=== PATIENT | male | born 1955 | race Caucasian/White ===

== ENCOUNTER 2017-07-23 09:26 | Inpatient (IN) | payer MEDICAID ==
[2017-07-23 10:18] LABS: ALT 26 U/L (7-52); Albumin 2.4 g/dL (3.2-5.2); Alkaline Phosphatase 139 U/L (34-104); Blood Urea Nitrogen 18 mg/dL (6-24); C Reactive Protein 59.94 mg/L (< 5.00); CO2 Carbon Dioxide 29 mmol/L (22-32); Calcium 8.8 mg/dL (8.6-10.3); Chloride 90 mmol/L (101-111); EGFR African American 78.4 (>60); Globulin 3.4 g/dL (2-4); Glucose 480 mg/dL (70-100); Sodium 124 mmol/L (133-145); Total Protein 5.8 g/dL (6.4-8.9); Uric Acid 5.6 mg/dL (4.4-7.6)
--- NOTE | 2017-07-23 10:42 | RAD ---
INDICATION: RIGHT lower extremity pain and edema. COMPARISON: March 25, 2010 CT. TECHNIQUE: Goldberg scale, color Doppler, and spectral analysis of the deep veins of the RIGHT lower extremity. Vessel compression, phasicity, and augmentation assessed. REPORT: The RIGHT common femoral, great saphenous, profunda femoral, femoral, popliteal, one of the paired peroneal and the paired posterior tibial veins are patent. The remaining peroneal calf vein demonstrates occlusive thrombosis. Top normal sized RIGHT inguinal lymph node noted. Patency of the LEFT common femoral vein documented. IMPRESSION: Occlusive thrombosis of one of the peroneal veins of the RIGHT calf.
[2017-07-23 10:56] LABS: Hematocrit 34 % (42-52); Hemoglobin 12.1 g/dl (14.0-18.0); Mean Corpuscular HGB Conc 35 g/dl (31-36); Mean Corpuscular Hemoglobin 39 pg (27-31); Mean Platelet Volume 8 um3 (7.4-10.4); Red Blood Count 3.12 10^6/ul (4.0-5.4); Red Cell Distribution Width 14 % (10.5-15); White Blood Count 5.7 10^3/ul (3.5-10.8)
[2017-07-23 10:57] LABS: Mean Corpuscular Volume 109 fL (80-94)
[2017-07-23] MEDS ORDERED: cefTRIAXone(*) 1 GM in NS 0.9% 50 ML* 50 ML IVPB ONE (11:03)
[2017-07-23] MEDS ORDERED: NS 0.9% 1000 ML* 1,000 ML IV ONE (11:24)
[2017-07-23] MEDS ORDERED: Dextrose 50% Syringe 50 ML* 25 GM/50 ML SYRINGE IV PUSH PRN (12:05)
[2017-07-23] MEDS ORDERED: Ondansetron INJ* 2 MG/ML VIAL IV PRN (12:05)
[2017-07-23] MEDS ORDERED: NS 0.9% 1000 ML* 1,000 ML IV SCH (12:15)
--- NOTE | 2017-07-23 12:59 | RAD ---
HISTORY: Swelling, pain, fall, right ankle pain COMPARISONS: None VIEWS: 2, Frontal and lateral views of the right ankle. Evaluation is somewhat limited by obliquity FINDINGS: BONE DENSITY: Normal. BONES: There is no displaced fracture. Calcaneal enthesophytes are noted JOINTS: There is osteoarthritis of the tibiotalar and fibulotalar articulations. There is osteoarthritis of the midfoot. ALIGNMENT: There is no dislocation. SOFT TISSUES: Unremarkable. OTHER FINDINGS: None. IMPRESSION: OSTEOARTHRITIS. NO ACUTE OSSEOUS INJURY. IF SYMPTOMS PERSIST, RECOMMEND REPEAT IMAGING.
[2017-07-23 13:00] LABS: Anion Gap 5 mmol/L (2-11)
--- NOTE | 2017-07-23 13:55 | HP ---
ISTORY AND PHYSICAL: * ADDENDUM: Rajat Munson is a 62-year-old male with nonalcoholic liver cirrhosis who presented with right leg edema and cellulitis to the ED. He was noted to have occlusive thrombus of one of the peroneal veins in the right calf. He is going to be admitted to the hospital, treated for cellulitis. We will also ask an oncology consult to recommend further treatment DVT that is symptomatic in this cirrhotic patient. For further details of the patient's presentation and plan, please see history and physical dictated by Kal Talavera NP on 07/22/17, with which I agree. [id number]/[facility] #: [id number] MTDJihan
--- NOTE | 2017-07-23 14:01 | RAD ---
Indication: Assess ascites. Comparison: March 26, [address] Technique: Limited four-quadrant abdominal ultrasound. REPORT AND IMPRESSION: Cirrhotic micronodular surface contour of the liver. Patent portal and hepatic veins with respective appropriate direction flow documented. Moderate volume of ascites greater on the RIGHT than the LEFT. Upper normal spleen size. Distended urinary bladder.
[2017-07-23] MEDS: Enoxaparin(*) 40 MG/0.4 ML SYR SUBCUT SCH (14:12)
[2017-07-23] MEDS: ceFAZolin 2 GM PREMIX (*) 2 GM/50 ML BAG IVPB SCH ×2 (14:12→21:01)
--- NOTE | 2017-07-23 14:45 | HP ---
ATTENDING ADDENDUM NOW INCLUDED ON THIS REPORT CC: Dr. Wallace; Dr. Fischer * HISTORY AND PHYSICAL: DATE OF ADMISSION: 07/23/17 PRIMARY CARE PROVIDER: Dr. Wallace. CONSULTING FACILITY TECHNICIAN: Dr. Fischer. ATTENDING PHYSICIAN WHILE IN THE HOSPITAL: Dr. Carmen Villaseñor * (report dictated by Kal Talavera NP). CHIEF COMPLAINT: 1. Weakness. 2. Right leg pain. 3. Fall. HISTORY OF PRESENT ILLNESS: Mr. Munson is a 62-year-old male patient who carries a history of cryptogenic cirrhosis, history of TIA, and a history of epilepsy as a child. He comes in today. He says over the last week, he has had a progressive decline in his functional status. He has been more weak. He has been having pain in his right leg and now in his left leg and he has just been not doing well. He got up today and he has had a mechanical fall. He got to the edge of the bed to use the urinal and he fell down. His sister who was there in [facility], aided him and they called 911 as because she was concerned over the last week he had been declining. They noticed when he fell that he did have a significant amount of redness just above his right ankle and she was concerned there might be an infection there. The patient denied having any abdominal pain. No cough. He denied any dysuria or any frequency. He denied having any seizures. Sister does state that he has been voiding a lot, and he has been pretty thirsty and drinking. He feels parched despite drinking fluids. He says that he follows with Dr. Wallace on a quarterly basis and he has been keeping his appointments. He does not have a GI specialist, but he does note that he has cryptic cirrhosis and he opted not to receive liver transplant. He denies having any fevers. He did admit to having some chills and feeling warm. No chest pain. No shortness of breath. No abdominal discomfort. He had one episode of diarrhea and one episode of urinary incontinence, but no dysuria. There has been frequency. There was concern today for possible cellulitis and he is also noted to be hyponatremic. We are asked to evaluate for admission. PAST MEDICAL HISTORY: Significant for: 1. Cryptogenic cirrhosis. 2. TIA. 3. Seizures as a child. PAST SURGICAL HISTORY: He has had a liver biopsy and appendectomy. HOME MEDICATIONS: Include: 1. Aldactone 50 mg p.o. daily. 2. Propranolol 40 mg p.o. b.i.d. 3. Multivitamin 1 tablet p.o. daily. 4. Lasix 20 mg daily. ALLERGIES TO MEDICATIONS: Include no known drug allergies. FAMILY HISTORY: Mother had a history of TB. Father had a history of NE and CAD. SOCIAL HISTORY: He does not smoke. He does not drink. Last time he had a drink when he was 25. Surrogate decision maker is his sister Suad. REVIEW OF SYSTEMS: There is no significant weight change. Denied having any double visions. There is no ear discharge. Denied having any rhinorrhea. No sore throat. No thyroid enlargement. Denied having any chest pain. There was no orthopnea. There was no nocturnal dyspnea. There was no abdominal pain. No nausea. No vomiting. No dysuria. There was frequency. There is no seizure. No loss of consciousness. No pruritus and no skin ulcerations. Review of 14 systems completed, all others negative. PHYSICAL EXAMINATION GENERAL: At this time, Mr. Munson is a 62-year-old male patient. He is chronically ill appearing. He is sitting in the ED stretcher. He does not appear to be in any acute distress. VITAL SIGNS: Blood pressure 98/53, pulse 56, respirations 18, O2 sat 100%, temperature 97.6. HEENT: Head: Atraumatic. Eyes: EOMs intact. Sclerae, he did have some icterus noted. Pupils reactive to light. Throat: Oral mucosa appears to be moist. No oropharyngeal erythema. NECK: Supple. LUNGS: Clear to auscultation bilaterally. No wheezes, rales, or rhonchi. HEART: Sounds S1, S2. Regular rate and rhythm. No murmurs, rubs, or gallops. ABDOMEN: Soft, flat, nontender. Bowel sounds present. EXTREMITIES: He does have edema noted to the right lower extremity, right ankle particularly and the right foot. He has some erythema noted just above the right ankle and it is hot to touch. He is moving his extremities, 5/5 strength. NEUROLOGIC: He is awake, alert, and oriented x3. Tongue is midline. Manager Front are equal. No gross focal deficits. SKIN: Intact. He does have what appears to be an abrasion noted to the right great toe. DIAGNOSTIC STUDIES/LAB DATA: WBC 5.7, RBC of 3.12, hemoglobin of 12.1, hematocrit of 34, platelet count of 110. Sodium is 124, his potassium is pending, his chloride is 90, bicarb 29, BUN 18. Creatinine 1.20, glucose of 480 , lactate 3.1, calcium of 8.8. Uric acid 5.6. Total bili 4.9, AST pending, ALT 29, alk phos 139. CRP of 59. Albumin of 2.4. He had a venous Doppler study showed occlusive thrombus of one of the peroneal veins of the right calf. Old medical records were reviewed. ASSESSMENT AND PLAN: Mr. Munson is a 62-year-old male patient with cryptogenic cirrhosis, coming into the ED today, with complaints of fall and weakness and on evaluation found to have cellulitis of the right lower extremity, peroneal vein thrombus. In addition to this, also found to be newly onset diabetic. He will be admitted under inpatient status for: 1. Cryptogenic cirrhosis. I am unsure of his MELD score at this point. I do not have his INR to help me calculate this. I would like to calculate his MELD. The patient is not interested in a liver transplant. If the MELD is high , we may need to consider possible palliative care consult as his liver disease does appear to be pretty advanced. I would like to get ammonia level on the patient and we will continue to follow. 2. Peroneal vein thrombosis. I did touch base with Dr. Fischer. He does have a cellulitis and the possible thrombophlebitis on the same side as the blood clot. At this point, Dr. Fischer's recommendation to provide Lovenox subcu daily for [address] Fischer will be evaluating the patient. Again, the risks and benefits on this, the patient does have thrombophlebitis and cellulitis in the same leg and certainly there is a concern and the low likelihood that the clot will embolize. However, I do think that it is appropriate because of that underlying infection and possible thrombophlebitis, to go ahead and put him on low dose Lovenox to prevent any further clotting. 3. New onset diabetes: I will put him on Lantus 10 units and I am also going to put him on a sliding scale. We will get an A1c and I placed a consult to [facility]. 4. Cellulitis and thrombophlebitis: We will go ahead and put him on cefazolin. We will get blood cultures. In addition to this, I will repeat the lactic acid as that may be elevated due to infection or it could certainly just be elevated due to the fact that he has significant liver disease and he cannot clear it. We will monitor that. 5. Hyponatremia: This is factitious. The sodium actually corrects out to about 130 with that sugar of 480. So we will follow this. I am going to repeat the BMP later today and I am sending off serum osmo, urine osmo, and urine sodium. He does appear to be dry and I am also going to hold his spironolactone and Lasix. We will continue the propranolol. 6. DVT prophylaxis. He will be on Lovenox 40 a day. 7. Code status. He is a full code. 8. Fluids, electrolytes, and nutrition. He can have a low protein diet. TIME SPENT: On admission 90 minutes, greater than half the time spent face-to- face with the patient, obtaining my history and physical, other half of the time was spent going over the plan of care with the patient and implementing plan of care. I did discuss the plan of care with my attending, Dr. Villaseñor; she is in agreement. KAL TALAVERA NP ADDENDUM: Rajat Munson is a 62-year-old male with nonalcoholic liver cirrhosis who presented with right leg edema and cellulitis to the ED. He was noted to have occlusive thrombus of one of the peroneal veins in the right calf. He is going to be admitted to the hospital, treated for cellulitis. We will also ask an oncology consult to recommend further treatment for peroneal vein thrombosis that is symptomatic in this cirrhotic patient. For further details of the patient's presentation and plan, please see history and physical dictated by Kal Talavera NP on 07/22/17, with which I agree. CARMEN VILLASEÑOR MD [id number]/[facility] #: [id number] [id number]/[facility] #: [id number] LALI
[2017-07-23 15:43] LABS: Urine Bilirubin Negative (Negative); Urine Glucose 3+(>=500 mg/dL) (Negative); Urine Nitrite Negative (Negative)
[2017-07-23 17:34] LABS: BUN/Creatinine Ratio 15.5 (8-20); Calcium 8.2 mg/dL (8.6-10.3); EGFR African American 81.5 (>60); EGFR Non-African American 63.4 (>60); Potassium 4.3 mmol/L (3.5-5.0)
[2017-07-23] MEDS ORDERED: Insulin LISPRO* 1 UNITS UNIT SUBCUT ONE (17:46)
[2017-07-23] MEDS: Insulin LISPRO* 1 UNITS UNIT SUBCUT SCH (18:03)
[2017-07-23] MEDS ORDERED: Insulin GLARGINE(*) 1 UNITS UNIT SUBCUT SCH (21:00)
[2017-07-23] MEDS: Propranolol TAB* 40 MG PO SCH (21:03)
[2017-07-24] MEDS: ceFAZolin 2 GM PREMIX (*) 2 GM/50 ML BAG IVPB SCH ×2 (05:08→13:41)
[2017-07-24 07:40] LABS: Hematocrit 31 % (42-52); Hemoglobin 10.9 g/dl (14.0-18.0); Mean Corpuscular HGB Conc 36 g/dl (31-36); Mean Corpuscular Hemoglobin 39 pg (27-31); Mean Platelet Volume 7 um3 (7.4-10.4); Red Cell Distribution Width 14 % (10.5-15); White Blood Count 7.4 10^3/ul (3.5-10.8)
[2017-07-24 07:46] LABS: Add Diff/Slide Review? Slide Review Added; Comments Flag Yes; Mean Corpuscular Volume 109 fL (80-94)
[2017-07-24 08:26] LABS: BUN/Creatinine Ratio 16.5 (8-20); Calcium 8.1 mg/dL (8.6-10.3); EGFR African American 87.6 (>60); EGFR Non-African American 68.1 (>60); Potassium 4.4 mmol/L (3.5-5.0)
[2017-07-24] MEDS: Propranolol TAB* 40 MG PO SCH ×2 (09:12→23:47)
[2017-07-24] MEDS: Insulin LISPRO* 1 UNITS UNIT SUBCUT SCH ×3 (09:12→18:31)
--- NOTE | 2017-07-24 10:30 | PN ---
Subjective Date of Service: 07/24/17 Interval History: Mr. Munson states that he feels relatively well today. He reports continued pain with palpation to bilateral calves of unclear duration though seems to be ongoing for about a week. He denies any history of diabetes although he describes this diagnosis as "in the air." He denies chest pain, SOB, nausea, or abdominal pain. Objective Active Medications: Dextrose (D50w Syringe 50 Ml*) 12.5 gm IV PUSH .FOR FS < 60 - SS PRN Enoxaparin Sodium (Lovenox(*)) 40 mg SUBCUT Q24H MAKENNA Cefazolin Sodium/Dextrose (Kefzol 2 Gm Premix(*)) 2 gm in 50 mls @ 100 mls/hr IVPB Q8H MAKENNA Sodium Chloride (Ns 0.9% 1000 Ml*) 1,000 mls @ 100 mls/hr IV PER RATE MAKENNA Insulin Glargine (Lantus(*)) 10 units SUBCUT Q24H MAKENNA Insulin Human Lispro (Humalog*) 0 units SUBCUT AC MAKENNA Ondansetron HCl (Zofran Inj*) 4 mg IV Q6H PRN Propranolol HCl (Inderal Tab*) 40 mg PO BID [facility] Vital Signs: Temp Pulse Resp BP Pulse Ox 98.3 F 66 18 90/50 97 07/24/17 07:18 07/24/17 07:18 07/24/17 07:18 07/24/17 07:18 07/24/17 07:18 Oxygen Devices in Use Now: None Appearance: Male lying in bed in NAD Eyes: No Scleral Icterus Ears/Nose/Mouth/Throat: Mucous Membranes Moist Neck: Trachea Midline Respiratory: Symmetrical Chest Expansion and Respiratory Effort, Clear to Auscultation Cardiovascular: NL Sounds; No Murmurs; No JVD, - - +1 edema to R LE Abdominal: NL Sounds; No Tenderness; No Distention, - - Hepatomegaly Lymphatic: No Cervical Adenopathy Extremities: - - +1 R LE Skin: - - Erythema to right medial ankle Neurological: Alert and Oriented x 3, NL Muscle Strength and Tone Nutrition: Taking PO's Result Diagrams: 07/24/17 07:33 07/24/17 07:33 Assess/Plan/Problems-Billing Assessment: Mr. 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 - Patient Problems (1) Cellulitis Comment: - Switch to keflex as patient tolerating oral intake. (2) Diabetes Comment: - New diagnosis with HgbA1c is 10.8. - Increase lantus for persistent hyperglycemia, will likely need insulin therapy rather than oral meds given hepatic dysfunction. - [facility] consult outpatient. (3) Hyponatremia Comment: - Na corrects to 130 with hyperglycemia taken in to account. (4) DVT (deep venous thrombosis) Comment: - Distal DVT with concern for associated thrombophlebitis. - Case reviewed with Dr. Fischer with plan for Lovenox 40mg sq daily. - Patient also has left sided calf pain, plan for doppler of L LE as well. (5) Cryptogenic cirrhosis Comment: - Patient has opted to forego any liver transplant. - INR 1.33, Platelets 96. (6) Full code status Status and Disposition: Inpatient. Anticipate discharge to home when medically stable.
[2017-07-24] MEDS: Enoxaparin(*) 40 MG/0.4 ML SYR SUBCUT SCH (13:41)
--- NOTE | 2017-07-24 16:31 | RAD ---
INDICATION: LEFT lower extremity pain and edema. COMPARISON: RIGHT lower extremity venous Doppler July 23, 2017. TECHNIQUE: Goldberg scale, color Doppler, and spectral analysis of the deep veins of the LEFT lower extremity. Vessel compression, phasicity, and augmentation assessed. REPORT: The LEFT common femoral, great saphenous, profunda femoral, femoral, popliteal, and posterior tibial veins are patent. The LEFT peroneal veins could not be visualized which may be technical due to limited acoustic window likely secondary to innumerable calcifications within the soft tissue plane based on correlation with July 23, 2017 contralateral ankle radiographs. Patency of the RIGHT common femoral vein documented. IMPRESSION: 1. No evidence for LEFT above knee DVT. 2. Patency of the LEFT calf posterior tibial veins documented. 3. The LEFT peroneal veins could not be visualized due to shadowing from soft tissue calcifications limiting acoustic window.
[2017-07-24] MEDS ORDERED: Insulin LISPRO* 1 UNITS UNIT SUBCUT SCH (18:07)
[2017-07-24] MEDS ORDERED: Insulin LISPRO* 1 UNITS UNIT SUBCUT ONE ×3 (18:14→23:57)
[2017-07-24] MEDS ORDERED: Insulin GLARGINE(*) 1 UNITS UNIT SUBCUT SCH (21:00)
[2017-07-24] MEDS: Cephalexin CAP* 500 MG PO SCH (22:40)
[2017-07-24] MEDS ORDERED: Propranolol TAB* 20 MG PO ONE (23:45)
[2017-07-25] MEDS ORDERED: Insulin LISPRO* 1 UNITS UNIT SUBCUT SCH (07:34)
[2017-07-25] MEDS ORDERED: Propranolol TAB* 20 MG PO SCH (08:37)
--- NOTE | 2017-07-25 08:38 | PN ---
Subjective Date of Service: 07/25/17 Interval History: Mr. Munson has no new acute complaints today and thinks that he is feeling better overall. He denies chest pain, SOB, nausea, or abdominal pain. He reports less pain in his right ankle. 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 Objective Active Medications: Cephalexin HCl (Keflex Cap*) 500 mg PO BID [facility]KENNA Dextrose (D50w Syringe 50 Ml*) 12.5 gm IV PUSH .FOR FS < 60 - SS PRN Enoxaparin Sodium (Lovenox(*)) 40 mg SUBCUT Q24H MAKENNA Sodium Chloride (Ns 0.9% 1000 Ml*) 1,000 mls @ 100 mls/hr IV PER RATE MAKENNA Insulin Glargine (Lantus(*)) 30 units SUBCUT 2100 MAKENNA Insulin Human Lispro (Humalog*) 0 units SUBCUT AC MAKENNA Ondansetron HCl (Zofran Inj*) 4 mg IV Q6H PRN Propranolol HCl (Inderal Tab*) 40 mg PO BID [facility] Vital Signs - 8 hr Vital Signs: Temp Pulse Resp BP Pulse Ox 98.4 F 70 18 87/43 98 07/25/17 07:35 07/25/17 07:35 07/25/17 07:47 07/25/17 07:35 07/25/17 07:35 Oxygen Devices in Use Now: None Appearance: Male lying in bed in NAD Eyes: No Scleral Icterus Ears/Nose/Mouth/Throat: Mucous Membranes Moist Neck: Trachea Midline Respiratory: Symmetrical Chest Expansion and Respiratory Effort, Clear to Auscultation Cardiovascular: NL Sounds; No Murmurs; No JVD, - - +1 edema bilateral, R > L Abdominal: - - Distended, soft, nontender Skin: No Rash or Ulcers Neurological: Alert and Oriented x 3, NL Muscle Strength and Tone Nutrition: Taking PO's Result Diagrams: 07/24/17 07:33 07/24/17 07:33 Microbiology and Other Data: . Assess/Plan/Problems-Billing Assessment: Mr. 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 - Patient Problems (1) Cellulitis Comment: - Switch to keflex as patient tolerating oral intake. - Elevate LE's (2) Hypotension Comment: - SBP 80-100 - Suspect this is a chronic issue with portal hypertension and cirrhosis. - Hold propranolol. (3) DVT (deep venous thrombosis) Comment: - Distal DVT with concern for associated thrombophlebitis. - Case reviewed with Dr. Fischer with plan for Lovenox 40mg sq daily. - Patient also has left sided calf pain, but doppler negative. (4) Diabetes Comment: - New diagnosis with HgbA1c of 10.8, patient notes that this has been discussed with him but he had not wanted to start treatment. - Increase lantus for persistent hyperglycemia, will need insulin therapy rather than oral meds given hepatic dysfunction. - [facility] consult requested, will see on Wednesday after 3:30pm if patient still in the hospital. (5) Hyponatremia Comment: - Na corrects to 130 with hyperglycemia taken in to account. (6) Cryptogenic cirrhosis Comment: - Patient has opted to forego any liver transplant. - INR 1.33, Platelets 96. (7) Full code status Status and Disposition: Inpatient. Patient with limited mobility, physical therapy consult pending. Anticipate patient will need short term rehab vs SNF.
[2017-07-25] MEDS: Cephalexin CAP* 500 MG PO SCH ×2 (10:00→21:31)
--- NOTE | 2017-07-25 12:08 | ED ---
Nicolas Real Angela, scribed for Dhaval Hill MD on 07/23/17 at 0935 . Lower Extremity - HPI Summary HPI Summary: This pt is a 62 y/o male presenting to [facility] via EMS from home c/o weakness and right ankle redness for approximately 1 week. Pt states that he also noticed some swelling on his right ankle. Per EMS, pt was trying to stand up, became weak, and subsequently slid to the floor. EMS reports the pt was found seated on the floor of the bedroom. No LOC or headstrike. Pt denies chest pain, SOB. He also states having uncontrolled urination. 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 Pt is currently on Aldactone, propranolol, Lasix. - History of Current Complaint Stated Complaint: WEAKNESS, LEG PAIN Time Seen by Provider: 07/23/17 09:28 Hx Obtained From: Patient Mechanism Of Injury: Other - none Onset of Pain: Days Onset/Duration: Days Severity Currently: Severe Timing: Lasting Days Location: Is Discrete @ - right ankle Associated Signs And Symptoms: Positive: Swelling, Redness Able to Bear Weight: Yes - Allergies/Home Medications Allergies/Adverse Reactions: Allergies Allergy/AdvReac Type Severity Reaction Status Date / Time No Known Allergies Allergy Verified 07/23/17 09:38 Home Medications: Home Medications Furosemide TAB* [Lasix TAB*] 20 mg PO DAILY 07/23/17 [History Confirmed 07/23/17 ] Multivitamins/Minerals TAB* [Theragran/minerals TAB*] 1 tab PO DAILY 07/23/17 [ History Confirmed 07/23/17] Propranolol TAB* [Inderal TAB*] 40 mg PO BID 07/23/17 [History Confirmed ] Spironolactone TAB* [Aldactone TAB*] 50 mg PO DAILY 07/23/17 [History Confirmed 07/23/17] PMH/Surg Hx/FS Hx/Imm Hx Endocrine/Hematology History: Denies: Hx Diabetes Cardiovascular History: Denies: Hx Hypertension GI History: Reports: 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 - Family History Known Family History: Positive: Cardiac Disease - Father: CAD and [place], Other - Mother: TB - Social History Alcohol Use: None Substance Use Type: Reports: None Smoking Status (MU): Never Smoked Tobacco Review of Systems Negative: Fever, Chills Negative: Chest Pain Negative: Shortness Of Breath Musculoskeletal: Other - Right ankle erythematous Positive: Edema - right ankle Skin: Negative Neurological: Negative All Other Systems Reviewed And Are Negative: Yes Physical Exam - Summary Physical Exam Summary: VITAL SIGNS: Reviewed. GENERAL: Patient is a pale and weak male who is lying comfortable in the stretcher. Patient is not in any acute respiratory distress. HEAD AND FACE: No signs of trauma. No ecchymosis, hematomas or skull depressions. No sinus tenderness. EYES: PERRLA, EOMI x 2, No injected conjunctiva, no nystagmus. EARS: Hearing grossly intact. Ear canals and tympanic membranes are within normal limits. MOUTH: Oropharynx within normal limits. NECK: Supple, trachea is midline, no adenopathy, no JVD, no carotid bruit, no c- spine tenderness, neck with full ROM. CHEST: Symmetric, no tenderness at palpation LUNGS: Clear to auscultation bilaterally. No wheezing or crackles. CVS: Regular rate and rhythm, S1 and S2 present, no murmurs or gallops appreciated. ABDOMEN: Soft, non-tender. No signs of distention. No rebound no guarding, and no masses palpated. Bowel sounds are normal. EXTREMITIES: FROM in all major joints, no cyanosis or clubbing. Right lower extremity erythema, swollen, and tenderness. NEURO: Alert and oriented x 3. No acute neurological deficits. Speech is normal and follows commands. SKIN: Warm. Dry skin. Triage Information Reviewed: Yes Vital Signs On Initial Exam: Initial Vitals Temp Pulse Resp BP Pulse Ox 97.6 F 95 16 91/42 92 07/23/17 09:37 07/23/17 09:37 07/23/17 09:37 07/23/17 09:37 07/23/17 09:37 Vital Signs Reviewed: Yes Diagnostics - Vital Signs Vital Signs Temp Pulse Resp BP Pulse Ox 07/23/17 11:00 65 20 107/55 100 07/23/17 10:30 66 15 101/54 100 07/23/17 10:00 64 10 98/56 98 07/23/17 09:44 64 100 07/23/17 09:43 100/49 07/23/17 09:37 97.6 F 95 16 91/42 92 - Laboratory Lab Results: Lab Results 07/23/17 07/23/17 07/23/17 Range/Units 09:50 09:50 09:50 WBC 5.7 (3.5-10.8) 10^3/ul RBC 3.12 L (4.0-5.4) 10^6/ul Hgb 12.1 L (14.0-18.0) g/dl Hct 34 L (42-52) % MCV 109 H (80-94) fL MCH 39 H (27-31) pg MCHC 35 (31-36) g/dl RDW 14 (10.5-15) % Plt Count 110 L (150-450) 10^3/ul MPV 8 (7.4-10.4) um3 Neut % (Auto) 72.7 (38-83) % Lymph % (Auto) 15.4 L (25-47) % Gilliam % (Auto) 6.9 (1-9) % Eos % (Auto) 3.8 (0-6) % Baso % (Auto) 1.2 (0-2) % Absolute Neuts (auto) 4.2 (1.5-7.7) 10^3/ul Absolute Lymphs (auto) 0.9 L (1.0-4.8) 10^3/ul Absolute Monos (auto) 0.4 (0-0.8) 10^3/ul Absolute Eos (auto) 0.2 (0-0.6) 10^3/ul Absolute Basos (auto) 0.1 (0-0.2) 10^3/ul Absolute Nucleated RBC 0.01 10^3/ul Nucleated RBC % 0.2 INR (Anticoag Therapy) (0.77-1.02) Sodium 124 L (133-145) mmol/L Potassium TNP Chloride 90 L (101-111) mmol/L Carbon Dioxide 29 (22-32) mmol/L Anion Gap 5 (2-11) mmol/L BUN 18 (6-24) mg/dL Creatinine 1.20 H (0.67-1.17) mg/dL Est GFR ( Amer) 78.4 (>60) Est GFR (Non-Af Amer) 61.0 (>60) BUN/Creatinine Ratio 15.0 (8-20) Glucose 480 H (70-100) mg/dL Hemoglobin A1c (4.0-5.6) % Lactic Acid 3.1 H* (0.5-2.0) mmol/L Uric Acid 5.6 (4.4-7.6) mg/dL Calcium 8.8 (8.6-10.3) mg/dL Total Bilirubin 4.90 H (0.2-1.0) mg/dL AST TNP ALT 26 (7-52) U/L Alkaline Phosphatase 139 H (34-104) U/L C-Reactive Protein 59.94 H (< 5.00) mg/L Total Protein 5.8 L (6.4-8.9) g/dL Albumin 2.4 L (3.2-5.2) g/dL Globulin 3.4 (2-4) g/dL Albumin/Globulin Ratio 0.7 L (1-3) 07/23/17 07/23/17 Range/Units 09:50 09:50 WBC (3.5-10.8) 10^3/ul RBC (4.0-5.4) 10^6/ul Hgb (14.0-18.0) g/dl Hct (42-52) % MCV (80-94) fL MCH (27-31) pg MCHC (31-36) g/dl RDW (10.5-15) % Plt Count (150-450) 10^3/ul MPV (7.4-10.4) um3 Neut % (Auto) (38-83) % Lymph % (Auto) (25-47) % Gilliam % (Auto) (1-9) % Eos % (Auto) (0-6) % Baso % (Auto) (0-2) % Absolute Neuts (auto) (1.5-7.7) 10^3/ul Absolute Lymphs (auto) (1.0-4.8) 10^3/ul Absolute Monos (auto) (0-0.8) 10^3/ul Absolute Eos (auto) (0-0.6) 10^3/ul Absolute Basos (auto) (0-0.2) 10^3/ul Absolute Nucleated RBC 10^3/ul Nucleated RBC % INR (Anticoag Therapy) 1.26 H (0.77-1.02) Sodium (133-145) mmol/L Potassium Chloride (101-111) mmol/L Carbon Dioxide (22-32) mmol/L Anion Gap (2-11) mmol/L BUN (6-24) mg/dL Creatinine (0.67-1.17) mg/dL Est GFR ( Amer) (>60) Est GFR (Non-Af Amer) (>60) BUN/Creatinine Ratio (8-20) Glucose (70-100) mg/dL Hemoglobin A1c 10.8 H (4.0-5.6) % Lactic Acid (0.5-2.0) mmol/L Uric Acid (4.4-7.6) mg/dL Calcium (8.6-10.3) mg/dL Total Bilirubin (0.2-1.0) mg/dL AST ALT (7-52) U/L Alkaline Phosphatase (34-104) U/L C-Reactive Protein (< 5.00) mg/L Total Protein (6.4-8.9) g/dL Albumin (3.2-5.2) g/dL Globulin (2-4) g/dL Albumin/Globulin Ratio (1-3) Result Diagrams: 07/24/17 07:33 07/24/17 07:33 Lab Statement: Any lab studies that have been ordered have been reviewed, and results considered in the medical decision making process. - Additional Comments Diagnostic Additional Comments: Venous Doppler Study, RIGHT, as read by radiologist: IMPRESSION: Occlusive thrombosis of one of the peroneal veins of the RIGHT calf. ED physician has reviewed this radiology report and agrees. Lower Extremity Course/Dx - Course Assessment/Plan: This pt is a 62 y/o male presenting to [facility] via EMS from home c/o weakness and right ankle redness for approximately 1 week. Pt states that he also noticed some swelling on his right ankle. Per EMS, pt was trying to stand up, became weak, and subsequently slid to the floor. EMS reports the pt was found seated on the floor of the bedroom. No LOC or headstrike. Pt denies chest pain, SOB. He also states having uncontrolled urination. 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 Pt is currently on Aldactone, propranolol, Lasix. Test results shoe slight anemia, INR is 1.26 , sodium is 124, creatinine is 1.2 glucose is 480 with a normal anion gap and normal carbon dioxide, therefore I have no suspicion for DKA. CRP is 59.9. Venous Doppler Study of the RLE shows occlusive thrombosis of one of the peroneal veins of the RIGHT calf. In the ED course, the pt was started on IV fluids for hypotension and was also started on insulin for hyperglycemia. He was also given ceftriaxone. At this point I discussed the case with Dr. Villaseñor, who accepted the pt for admission. Pt is hemodynamically stable, alert and oriented x3. - Diagnoses Differential Diagnosis/HQI/PQRI: Positive: Bursitis, Cellulitis, DVT, Gout, Sprain, Strain, Tendonitis Provider Diagnoses: Cellulitis of right lower extremity, Uncontrolled diabetes mellitus - Physician Notifications Discussed Care Of Patient With: Carmen Villaseñor Time Discussed With Above Provider: 11:06 Instructed by Provider To: Other - I discussed the pt's case with Dr. Villaseñor, who agreed to admit the pt. Discharge - Discharge Plan Condition: Stable Disposition: ADMITTED TO [facility] documentation as recorded by the Nicolas villatoro Angela accurately reflects the service I personally performed and the decisions made by , Dhaval Hill MD.
[2017-07-25] MEDS: Insulin LISPRO* 1 UNITS UNIT SUBCUT SCH ×3 (12:47→21:31)
[2017-07-25] MEDS: Enoxaparin(*) 40 MG/0.4 ML SYR SUBCUT SCH (14:44)
[2017-07-25] MEDS ORDERED: Insulin LISPRO* 1 UNITS UNIT SUBCUT ONE (18:07)
[2017-07-25] MEDS ORDERED: Insulin GLARGINE(*) 1 UNITS UNIT SUBCUT SCH (21:00)
[2017-07-25] MEDS: Insulin GLARGINE(*) 1 UNITS UNIT SUBCUT SCH (21:32)
[2017-07-26] MEDS: Insulin LISPRO* 1 UNITS UNIT SUBCUT SCH ×4 (09:13→22:18)
[2017-07-26] MEDS: Cephalexin CAP* 500 MG PO SCH ×2 (09:13→22:17)
[2017-07-26] MEDS: Enoxaparin(*) 40 MG/0.4 ML SYR SUBCUT SCH (12:28)
[2017-07-26] MEDS: oxyCODONE TAB* 5 MG TAB PO PRN ×2 (12:28→22:26)
--- NOTE | 2017-07-26 16:22 | CONSULT ---
Subjective Reason for Visit: weakness Admission Date: 07/23/17 Glucose Level On Admission: 480 History Of Present Illness: Mr. Munson is a 62 year old male who presented to the [facility] ED on 07/23/17 with complaints of weakness and a fall. His blood glucose on admission was noted to be 480 and Hgb A1C 10.8%. He states that he has been pre-diabetic for years, and is not surprised by this diagnosis of type II diabetes. He reports symptoms of polyuria, weakness, and generally feeling "awful". Patient History Lives With: Family Marital Status: Single Social Support: sister Preferred/Primary Language: Setswana Review Of Systems - Review of Systems Constant: - - weakness Eyes: No Blurry Vision Neurological: No Numbness/Tingling Endocrine: No Polydipsia, - - polyuria Objective Allergies Allergy/AdvReac Type Severity Reaction Status Date / Time No Known Allergies Allergy Verified 07/23/17 09:38 Home Medications Medication Instructions Recorded Confirmed Type Furosemide TAB* [Lasix TAB*] 20 mg PO DAILY 07/23/17 07/23/17 History Multivitamins/Minerals TAB* 1 tab PO DAILY 07/23/17 07/23/17 History [Theragran/minerals TAB*] Propranolol TAB* [Inderal TAB*] 40 mg PO BID 07/23/17 07/23/17 History Spironolactone TAB* [Aldactone 50 mg PO DAILY 07/23/17 07/23/17 History TAB*] Hospital Medications: Current Medications Cephalexin HCl (Keflex Cap*) 500 mg PO BID [facility] Last Admin: 07/26/17 09:13 Dose: 500 mg Dextrose (D50w Syringe 50 Ml*) 12.5 gm IV PUSH .FOR FS < 60 - SS PRN PRN Reason: FS < 60 Enoxaparin Sodium (Lovenox(*)) 40 mg SUBCUT Q24H [facility] Last Admin: 07/26/17 12:28 Dose: 40 mg Sodium Chloride (Ns 0.9% 1000 Ml*) 1,000 mls @ 100 mls/hr IV PER RATE [facility] Last Admin: 07/23/17 14:12 Dose: 100 mls/hr Insulin Glargine (Lantus(*)) 30 units SUBCUT 2100 [facility] Last Admin: 07/25/17 21:32 Dose: 30 units Insulin Human Lispro (Humalog*) 0 units SUBCUT ACHS [facility] PRN Reason: Protocol Last Admin: 07/26/17 12:29 Dose: 6 units Ondansetron HCl (Zofran Inj*) 4 mg IV Q6H PRN PRN Reason: NAUSEA Oxycodone HCl (Roxycodone Tab*) 5 mg PO Q6H PRN PRN Reason: PAIN Last Admin: 07/26/17 12:28 Dose: 5 mg Lab Data: Sodium 127 mmol/L (133-145) L 07/24/17 07:33 Potassium 4.4 mmol/L (3.5-5.0) 07/24/17 07:33 BUN 18 mg/dL (6-24) 07/24/17 07:33 Creatinine 1.09 mg/dL (0.67-1.17) 07/24/17 07:33 Hemoglobin A1c 10.8 % (4.0-5.6) H 07/23/17 09:50 Calcium 8.1 mg/dL (8.6-10.3) L 07/24/17 07:33 AST 40 U/L (13-39) H 07/23/17 11:50 ALT 26 U/L (7-52) 07/23/17 09:50 Vital Signs: Vital Signs 07/26/17 07/26/17 07/26/17 12:15 12:28 15:18 Temperature 36.7 C 37.1 C Pulse Rate 76 80 Respiratory 16 16 16 Rate Blood Pressure 91/44 84/47 (mmHg) O2 Sat by Pulse 99 97 Oximetry 07/26/17 15:46 Temperature Pulse Rate Respiratory 16 Rate Blood Pressure (mmHg) O2 Sat by Pulse Oximetry Height: 6 ft 1 in Weight: 83.915 kg Body Mass Index (BMI): 24.4 Physical Exam General Appearance: Positive: Alert, Oriented x3, Well Nourished, Lying In Bed Dentition: Positive: Dentition in Good Repair Cardiovascular: Positive: RRR Respiratory: Positive: Non-Labored Abdomin: Positive: Soft Plan Of Care Referral To: [facility] For Further OutPT Diabetic Training Diagnosis: Newly diagnosed type II diabetes with hyperglycemia Discharge Plan: Pt was provided with a glucometer and education re: self monitoring of blood glucose, self injection, signs/sx of hypo and hyperglycemia, and when to seek medical attention. He gave return demonstration of the glucometer and the insulin pen. I recommend that he follow up at [facility] for further diabetes education as an outpatient. Education Prior Diabetic Education: No Education Provided: Daily Self Injection, Blood Glucose Monitoring, When To Seek Medical Attention Goals Goals: According to the [place] [employer], the following are your goals for Hemaglobin A1C, Blood Glucose, Cholesterol and Blood Pressure. Hemaglobin A1C * <7.0% for most * <6.5% for "healthy" * <8.0% for "Less Healthy" Blood Glucose * Fasting Blood Glucose: 80-130 mg/dl * 2 Hour Post Prandial Glucose <180 mg/dl
--- NOTE | 2017-07-26 17:23 | PN ---
Subjective Date of Service: 07/26/17 Interval History: Patient complains of significant pain in RLE. Patient states that it has been about the same and isn't getting any better. Patient denies F/C, N/V, Abdominal pain, Diarrhea, Constipation, Dysuria, Back Pain, dizziness, or other pain. Patient states that he just remembered to say that he lost bowel and bladder control when he had his fall, but denies any loss of consciousness, back pain, numbness, tingling, shooting pain, epileptiform movements, or any recurrences. Family History: Unchanged from Admission Social History: Unchanged from Admission Past Medical History: Unchanged from Admission Objective Active Medications: Cephalexin HCl (Keflex Cap*) 500 mg PO BID [facility] Last Admin: 07/26/17 09:13 Dose: 500 mg Dextrose (D50w Syringe 50 Ml*) 12.5 gm IV PUSH .FOR FS < 60 - SS PRN PRN Reason: FS < 60 Enoxaparin Sodium (Lovenox(*)) 40 mg SUBCUT Q24H [facility] Last Admin: 07/26/17 12:28 Dose: 40 mg Sodium Chloride (Ns 0.9% 1000 Ml*) 1,000 mls @ 100 mls/hr IV PER RATE [facility] Last Admin: 07/23/17 14:12 Dose: 100 mls/hr Insulin Glargine (Lantus(*)) 30 units SUBCUT 2100 [facility] Last Admin: 07/25/17 21:32 Dose: 30 units Insulin Human Lispro (Humalog*) 0 units SUBCUT ACHS [facility] PRN Reason: Protocol Last Admin: 07/26/17 12:29 Dose: 6 units Ondansetron HCl (Zofran Inj*) 4 mg IV Q6H PRN PRN Reason: NAUSEA Oxycodone HCl (Roxycodone Tab*) 5 mg PO Q6H PRN PRN Reason: PAIN Last Admin: 07/26/17 12:28 Dose: 5 mg Vital Signs - 8 hr 07/26/17 07/26/17 07/26/17 12:15 12:28 15:18 Temperature 98.1 F 98.7 F Pulse Rate 76 80 Respiratory 16 16 16 Rate Blood Pressure 91/44 84/47 (mmHg) O2 Sat by Pulse 99 97 Oximetry 07/26/17 15:46 Temperature Pulse Rate Respiratory 16 Rate Blood Pressure (mmHg) O2 Sat by Pulse Oximetry Oxygen Devices in Use Now: None Appearance: Patient is a 62yo male who appears stated age and is sitting in the bed in NAD. Eyes: No Scleral Icterus, PERRLA Ears/Nose/Mouth/Throat: NL Teeth, Lips, Gums, Clear Oropharnyx, Mucous Membranes Moist Neck: NL Appearance and Movements; NL JVP, Trachea Midline Respiratory: Symmetrical Chest Expansion and Respiratory Effort, Clear to Auscultation Cardiovascular: NL Sounds; No Murmurs; No JVD, RRR, - - 2+ edema in RLE and 1+ pitting edema in LL. Pulses 2+ in radial, PT/DP areas. Abdominal: NL Sounds; No Tenderness; No Distention, - - Liver border palpated 2cm below the costal margin. Positive fluid wave. Lymphatic: No Cervical Adenopathy Extremities: No Clubbing, Cyanosis, - - Redness and swelling in right calf. Subcutaneous nodules in LLE with slight tenderness. Neurological: Alert and Oriented x 3, NL Sensation, NL Muscle Strength and Tone Result Diagrams: 07/24/17 07:33 07/24/17 07:33 Additional Lab and Data: Lab Results Microbiology and Other Data: . Assess/Plan/Problems-Billing Assessment: Mr. 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 - Patient Problems (1) Cellulitis Current Visit: Yes Status: Acute Code(s): L03.90 - CELLULITIS, UNSPECIFIED SNOMED Code(s): 345241983 Comment: Keflex ordered, patient states he thinks it is working, but cannot really say why. LEs elevated. Associated with LE DVT. (2) Cryptogenic cirrhosis Current Visit: Yes Status: Acute Code(s): K74.69 - OTHER CIRRHOSIS OF LIVER SNOMED Code(s): 39156202 Comment: Patient has opted to forego any liver transplant. INR 1.33, Platelets 96 on 07/24 (3) DVT (deep venous thrombosis) Current Visit: Yes Status: Acute Code(s): I82.409 - ACUTE EMBOLISM AND THOMBOS UNSP DEEP VN UNSP LOWER EXTREMITY SNOMED Code(s): 624145025 Comment: Distal DVT with concern for associated thrombophlebitis. Case reviewed with Dr. Fischer with plan for Lovenox 40mg sq daily. Patient also has left sided calf pain, but doppler negative. Patient continued to have pain and had calcified subcutaneous nodules. (4) Diabetes Current Visit: Yes Status: Acute Code(s): E11.9 - TYPE 2 DIABETES MELLITUS WITHOUT COMPLICATIONS SNOMED Code(s): 03522469 Comment: New diagnosis with HgbA1c of 10.8, patient notes that this has been discussed with him but he had not wanted to start treatment. Continue lantus and SSI. Patient confused as to persistent hyperglycemia, but diet was shown to be poor for diabetic control and CC diet ordered and patient educated about what foods contain carbohydrates. Appreciate [facility] consult. Patient educated about home us of insulin and diabetes monitoring. (5) Hyponatremia Current Visit: Yes Status: Acute Code(s): E87.1 - HYPO-OSMOLALITY AND HYPONATREMIA SNOMED Code(s): 44124575 Comment: Pseudohyponatremia due to hyperglycemia. (6) Hypotension Current Visit: Yes Status: Acute Comment: SBP 80-100 Suspect this is a chronic issue with portal hypertension and cirrhosis. Hold propranolol. (7) Full code status Current Visit: Yes Status: Acute Code(s): Z78.9 - OTHER SPECIFIED HEALTH STATUS SNOMED Code(s): 509929359 Status and Disposition: Inpatient. Patient with limited mobility, physical therapy consult pending. Anticipate patient will need short term rehab vs SNF.
[2017-07-26] MEDS: Insulin GLARGINE(*) 1 UNITS UNIT SUBCUT SCH (22:18)
[2017-07-27] MEDS ORDERED: NS 0.9% 500 ML* 500 ML IV ONE ×2 (00:32→17:42)
[2017-07-27 06:47] LABS: Hematocrit 27 % (42-52); Hemoglobin 9.8 g/dl (14.0-18.0); Mean Corpuscular HGB Conc 36 g/dl (31-36); Mean Corpuscular Hemoglobin 40 pg (27-31); Mean Platelet Volume 7 um3 (7.4-10.4); Red Blood Count 2.45 10^6/ul (4.0-5.4); Red Cell Distribution Width 14 % (10.5-15); White Blood Count 8.3 10^3/ul (3.5-10.8)
[2017-07-27 07:09] LABS: BUN/Creatinine Ratio 21.6 (8-20); C Reactive Protein 45.4 mg/L (< 5.00); Calcium 7.9 mg/dL (8.6-10.3); EGFR African American 74.8 (>60); EGFR Non-African American 58.2 (>60); Magnesium 1.9 mg/dL (1.9-2.7)
[2017-07-27 07:13] LABS: Comments Flag Yes; Mean Corpuscular Volume 110 fL (80-94)
[2017-07-27 07:20] LABS: Potassium 5.1 mmol/L (3.5-5.0)
[2017-07-27] MEDS: Cephalexin CAP* 500 MG PO SCH ×3 (10:30→20:49)
[2017-07-27] MEDS: oxyCODONE TAB* 5 MG TAB PO PRN ×2 (10:32→19:45)
[2017-07-27] MEDS: Insulin LISPRO* 1 UNITS UNIT SUBCUT SCH ×4 (10:32→20:46)
[2017-07-27] MEDS: Gabapentin CAP(*) 100 MG PO SCH ×2 (11:47→20:49)
[2017-07-27] MEDS: Enoxaparin(*) 40 MG/0.4 ML SYR SUBCUT SCH (13:02)
[2017-07-27 16:46] LABS: BUN/Creatinine Ratio 21.9 (8-20); Calcium 7.4 mg/dL (8.6-10.3); EGFR African American 67.3 (>60); EGFR Non-African American 52.3 (>60)
[2017-07-27 16:49] LABS: Potassium 5.7 mmol/L (3.5-5.0)
--- NOTE | 2017-07-27 17:21 | PN ---
Subjective Date of Service: 07/27/17 Interval History: Patient has improved pain on exam. Patient complains of numbness of his great toe on the B/L feet. Patient complains of stabbing pain in feet as well. Patient denies CP, SOB, N/V, abdominal pain, dysuria, palpitations, dizziness, or other pain. Patient able to walk to the bathroom with significant pain in his B/L LE. Family History: Unchanged from Admission Social History: Unchanged from Admission Past Medical History: Unchanged from Admission Objective Active Medications: Cephalexin HCl (Keflex Cap*) 500 mg PO TID [facility] Last Admin: 07/27/17 15:06 Dose: 500 mg Dextrose (D50w Syringe 50 Ml*) 12.5 gm IV PUSH .FOR FS < 60 - SS PRN PRN Reason: FS < 60 Enoxaparin Sodium (Lovenox(*)) 40 mg SUBCUT Q24H [facility] Last Admin: 07/27/17 13:02 Dose: 40 mg Gabapentin (Neurontin Cap(*)) 100 mg PO BID [facility] Last Admin: 07/27/17 11:47 Dose: 100 mg Insulin Glargine (Lantus(*)) 35 units SUBCUT 2100 [facility] Insulin Human Lispro (Humalog*) 0 units SUBCUT ACHS [facility] PRN Reason: Protocol Last Admin: 07/27/17 13:02 Dose: 9 units Ondansetron HCl (Zofran Inj*) 4 mg IV Q6H PRN PRN Reason: NAUSEA Oxycodone HCl (Roxycodone Tab*) 5 mg PO Q6H PRN PRN Reason: PAIN Last Admin: 07/27/17 10:32 Dose: 5 mg Vital Signs - 8 hr 07/27/17 07/27/17 07/27/17 10:32 11:37 11:47 Temperature 99.3 F Pulse Rate 82 Respiratory 16 17 16 Rate Blood Pressure 83/41 (mmHg) O2 Sat by Pulse 97 Oximetry 07/27/17 07/27/17 13:07 15:36 Temperature 99.0 F Pulse Rate 86 Respiratory 16 16 Rate Blood Pressure 79/37 (mmHg) O2 Sat by Pulse 93 Oximetry Oxygen Devices in Use Now: None Appearance: Patient is a 62yo male who appears pale, stated age and is sitting in the bed in NAD. Eyes: No Scleral Icterus, PERRLA Ears/Nose/Mouth/Throat: NL Teeth, Lips, Gums, Clear Oropharnyx, Mucous Membranes Moist Neck: NL Appearance and Movements; NL JVP, Trachea Midline Respiratory: Symmetrical Chest Expansion and Respiratory Effort, Clear to Auscultation Cardiovascular: NL Sounds; No Murmurs; No JVD, RRR, - - 2+ pitting edema in RLE. Trace in LLE. Abdominal: - - Stable hepatomegaly. Positive fluid wave. Stable from previous exams. No tenderness. Non-distended Lymphatic: No Cervical Adenopathy Skin: - - Erythematous rash on right martinez not increased from previous exam. Neurological: Alert and Oriented x 3, NL Muscle Strength and Tone, - - Decreased sensation in right foor greater than left. For vibration greater than light touch, pain or temperature. Result Diagrams: 07/27/17 06:23 07/27/17 16:14 Additional Lab and Data: Lab Results Microbiology and Other Data: . Assess/Plan/Problems-Billing Assessment: Mr. 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 - Patient Problems (1) Cellulitis Current Visit: Yes Status: Acute Code(s): L03.90 - CELLULITIS, UNSPECIFIED SNOMED Code(s): 820735758 Comment: Keflex ordered, patient states he thinks it is working, but cannot really say why. LEs elevated. Associated with LE DVT. (2) Cryptogenic cirrhosis Current Visit: Yes Status: Acute Code(s): K74.69 - OTHER CIRRHOSIS OF LIVER SNOMED Code(s): 69781170 Comment: Patient has opted to forego any liver transplant. INR 1.33 on 07/24, Platelets 105 (3) DVT (deep venous thrombosis) Current Visit: Yes Status: Acute Code(s): I82.409 - ACUTE EMBOLISM AND THOMBOS UNSP DEEP VN UNSP LOWER EXTREMITY SNOMED Code(s): 600341908 Comment: Distal DVT with concern for associated thrombophlebitis. Case reviewed with Dr. Fischer with plan for Lovenox 40mg sq daily for 30 days. Patient also has left sided calf pain, but doppler negative. Patient continued to have pain and had calcified subcutaneous nodules. May be exacerbating underlying peripheral neuropathy adding to pain. (4) Diabetes Current Visit: Yes Status: Acute Code(s): E11.9 - TYPE 2 DIABETES MELLITUS WITHOUT COMPLICATIONS SNOMED Code(s): 67946586 Comment: New diagnosis with HgbA1c of 10.8, patient notes that this has been discussed with him but he had not wanted to start treatment. Continue lantus and SSI. Patient confused as to persistent hyperglycemia, but diet was shown to be poor for diabetic control and CC diet ordered and patient educated about what foods contain carbohydrates. Patient states understanding and glucose control improved today. Appreciate [facility] consult. Patient educated about home us of insulin and diabetes monitoring. Patient has significant peripheral neuropathy which may be exacerbating pain with ambulation. 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 (5) Hyponatremia Current Visit: Yes Status: Acute Code(s): E87.1 - HYPO-OSMOLALITY AND HYPONATREMIA SNOMED Code(s): 51733918 Comment: Now at 120 which corrects to 123. This is a sharp decrease from 127 at 0600 today. Will give NS and monitor. Will check cortisol level in AM to assess for adrenal insufficiency. (6) Hypotension Current Visit: Yes Status: Acute Comment: SBP 80-100 Suspect this is a chronic issue with portal hypertension and cirrhosis. Hold propranolol and diuretics. Will give bolus of 500ml NS because patient may be dry. (7) Hyperkalemia Current Visit: Yes Status: Acute Code(s): E87.5 - HYPERKALEMIA SNOMED Code (s): 14362231 Comment: Potassium increased to 5.7 after being 5.1 this morning. Kayexelate 30mg ordered PO. Will recheck in 4 hours. EKG pending. Cortisol ordered in AM. (8) Anemia Current Visit: Yes Status: Acute Code(s): D64.9 - ANEMIA, UNSPECIFIED SNOMED Code(s): 908931761 Comment: Macrocytic and increasing, probably related to cirrhosis. Will trend and do more comprehensive workup if continues to decline. (9) Full code status Current Visit: Yes Status: Acute Code(s): Z78.9 - OTHER SPECIFIED HEALTH STATUS SNOMED Code(s): 164837512 Status and Disposition: Inpatient. Patient with limited mobility, physical therapy consult pending. Anticipate patient will need short term rehab vs SNF.
[2017-07-27] MEDS ORDERED: Sodium Polystyrene ORAL.SOL* 15 GM/60 ML BTL PO ONE (17:22)
[2017-07-27] MEDS: Insulin GLARGINE(*) 1 UNITS UNIT SUBCUT SCH (20:48)
[2017-07-27 22:31] LABS: BUN/Creatinine Ratio 20.8 (8-20); Calcium 7.6 mg/dL (8.6-10.3); EGFR African American 63.5 (>60); EGFR Non-African American 49.4 (>60)
[2017-07-27 22:32] LABS: Potassium 5.3 mmol/L (3.5-5.0)
[2017-07-28] MEDS: oxyCODONE TAB* 5 MG TAB PO PRN ×2 (03:54→21:05)
[2017-07-28] MEDS ORDERED: NS 0.9% 1000 ML* 1,000 ML IV SCH (05:15)
[2017-07-28 06:26] LABS: Hematocrit 27 % (42-52); Hemoglobin 9.6 g/dl (14.0-18.0); Mean Corpuscular HGB Conc 36 g/dl (31-36); Mean Corpuscular Hemoglobin 40 pg (27-31); Mean Platelet Volume 7 um3 (7.4-10.4); Red Blood Count 2.42 10^6/ul (4.0-5.4); Red Cell Distribution Width 14 % (10.5-15); White Blood Count 5.6 10^3/ul (3.5-10.8)
[2017-07-28 06:27] LABS: Comments Flag Yes; Mean Corpuscular Volume 112 fL (80-94)
[2017-07-28 07:20] LABS: BUN/Creatinine Ratio 22.7 (8-20); Calcium 7.5 mg/dL (8.6-10.3); EGFR African American 70.2 (>60); EGFR Non-African American 54.6 (>60)
[2017-07-28] MEDS: Gabapentin CAP(*) 100 MG PO SCH ×2 (09:53→21:03)
[2017-07-28] MEDS: Insulin LISPRO* 1 UNITS UNIT SUBCUT SCH ×5 (09:54→21:06)
[2017-07-28] MEDS: Cephalexin CAP* 500 MG PO SCH ×3 (09:54→21:03)
[2017-07-28 13:23] LABS: C Reactive Protein 57.66 mg/L (< 5.00)
[2017-07-28] MEDS: Enoxaparin(*) 40 MG/0.4 ML SYR SUBCUT SCH (14:02)
--- NOTE | 2017-07-28 15:37 | PN ---
Subjective Date of Service: 07/28/17 Interval History: Patient complains of continued pain in B/L LE, worse with walking and slightly improved with gabapentin. Talked with patient and sister about plan of care and about cryptogenic cirrhosis. Neither one seemed to understand the diagnosis very well. 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 Talked with need for specialist follow up outpatient. Patient denies CP, SOB, N/V, Abdominal pain, F/C, dysuria, dizziness , or other pain. Patient complains of continued weakness and difficulty ambulating. Family History: Unchanged from Admission Social History: Unchanged from Admission Past Medical History: Unchanged from Admission Objective Active Medications: Cephalexin HCl (Keflex Cap*) 500 mg PO TID [facility] Last Admin: 07/28/17 14:02 Dose: 500 mg Cosyntropin (Cosyntropin*) 0.25 mg IV ONCE ONE Stop: 07/29/17 06:31 Dextrose (D50w Syringe 50 Ml*) 12.5 gm IV PUSH .FOR FS < 60 - SS PRN PRN Reason: FS < 60 Enoxaparin Sodium (Lovenox(*)) 40 mg SUBCUT Q24H [facility] Last Admin: 07/28/17 14:02 Dose: 40 mg Gabapentin (Neurontin Cap(*)) 100 mg PO BID [facility] Last Admin: 07/28/17 09:53 Dose: 100 mg Insulin Glargine (Lantus(*)) 35 units SUBCUT 2100 [facility] Last Admin: 07/27/17 20:48 Dose: 35 units Insulin Human Lispro (Humalog*) 0 units SUBCUT ACHS [facility] PRN Reason: Protocol Last Admin: 07/28/17 14:03 Dose: 6 units Ondansetron HCl (Zofran Inj*) 4 mg IV Q6H PRN PRN Reason: NAUSEA Oxycodone HCl (Roxycodone Tab*) 5 mg PO Q6H PRN PRN Reason: PAIN Last Admin: 07/28/17 03:54 Dose: 5 mg Vital Signs - 8 hr 07/28/17 07/28/17 08:00 09:53 Respiratory 16 16 Rate Oxygen Devices in Use Now: None Appearance: Patient is a 62yo male who appears stated age and is sitting in the bed in NAD. Eyes: PERRLA, - - Icterus. Ears/Nose/Mouth/Throat: NL Teeth, Lips, Gums, Clear Oropharnyx, Mucous Membranes Moist Neck: NL Appearance and Movements; NL JVP, Trachea Midline Respiratory: Symmetrical Chest Expansion and Respiratory Effort, Clear to Auscultation Cardiovascular: NL Sounds; No Murmurs; No JVD, RRR, - - 2+ edema in RLE, Trace edema in LLE. Abdominal: NL Sounds; No Tenderness; No Distention, - - Stable hepatomegaly. Lymphatic: No Cervical Adenopathy Extremities: No Clubbing, Cyanosis Skin: - - Large area of erythema and dusky area on RLE with associated warmth and swelling. Swelling decreased from yesterday and area of erythema stable. Neurological: Alert and Oriented x 3, - - 4/5 strength throughout. Decreased sensation to light touch in B/L great toes, stable from previous exam. Result Diagrams: 07/28/17 05:58 07/28/17 05:58 Additional Lab and Data: Lab Results Microbiology and Other Data: . Assess/Plan/Problems-Billing Assessment: Mr. 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 - Patient Problems (1) Cellulitis Current Visit: Yes Status: Acute Code(s): L03.90 - CELLULITIS, UNSPECIFIED SNOMED Code(s): 385362057 Comment: Keflex ordered, patient states he thinks it is working, but cannot really say why. Swelling in LLE decreased, erythema stable. LEs elevated. Associated with LE DVT. (2) Cryptogenic cirrhosis Current Visit: Yes Status: Acute Code(s): K74.69 - OTHER CIRRHOSIS OF LIVER SNOMED Code(s): 13263526 Comment: Patient has opted to forego any liver transplant. INR 1.33 on 07/24, Platelets 99 on 07/28 MELD 22 on admission. Suggest follow up with specialist for management. (3) DVT (deep venous thrombosis) Current Visit: Yes Status: Acute Code(s): I82.409 - ACUTE EMBOLISM AND THOMBOS UNSP DEEP VN UNSP LOWER EXTREMITY SNOMED Code(s): 390701296 Comment: Distal DVT with concern for associated thrombophlebitis. Case reviewed with Dr. Fischer with plan for Lovenox 40mg sq daily for 30 days. Patient also has left sided calf pain, but doppler negative. Patient continued to have pain and had calcified subcutaneous nodules. May be exacerbating underlying peripheral neuropathy adding to pain. Low risk for embolization, not a good candidate for full anticoagulation due to liver disease. (4) Diabetes Current Visit: Yes Status: Acute Code(s): E11.9 - TYPE 2 DIABETES MELLITUS WITHOUT COMPLICATIONS SNOMED Code(s): 94358929 Comment: New diagnosis with HgbA1c of 10.8, patient notes that this has been discussed with him but he had not wanted to start treatment. Continue lantus and SSI. Patient confused as to persistent hyperglycemia, but diet was shown to be poor for diabetic control and CC diet ordered and patient educated about what foods contain carbohydrates. Patient states understanding and glucose control improved. Appreciate [facility] consult. Patient educated about home us of insulin and diabetes monitoring. Patient has significant peripheral neuropathy which may be exacerbating pain with ambulation. 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 (5) Hyponatremia Current Visit: Yes Status: Acute Code(s): E87.1 - HYPO-OSMOLALITY AND HYPONATREMIA SNOMED Code(s): 11285096 Comment: Now at 124. Increased from 120 yesterday. Will give NS and monitor. Cortisol level low, will order ACTH stimulation test in AM. (6) Hypotension Current Visit: Yes Status: Acute Comment: SBP 80-100 Suspect this is a chronic issue with portal hypertension and cirrhosis. Hold propranolol and diuretics. Given 1L fluids but ascites increased with minimal increase in BP. Asymptomatic , will monitor. (7) Hyperkalemia Current Visit: Yes Status: Acute Code(s): E87.5 - HYPERKALEMIA SNOMED Code (s): 02362348 Comment: Potassium 5.0 down from 5.7 yesterday after Kayexelate. EKG normal yesterday. Cortisol low, ACTH stimulation ordered for AM. (8) Anemia Current Visit: Yes Status: Acute Code(s): D64.9 - ANEMIA, UNSPECIFIED SNOMED Code(s): 959984214 Comment: Macrocytic and increasing, probably related to cirrhosis. Will trend and do more comprehensive workup if continues to decline. (9) Full code status Current Visit: Yes Status: Acute Code(s): Z78.9 - OTHER SPECIFIED HEALTH STATUS SNOMED Code(s): 463545171 Status and Disposition: Inpatient. Patient with limited mobility, physical therapy consult pending. Anticipate patient will need short term rehab vs SNF.
[2017-07-28] MEDS: Insulin GLARGINE(*) 1 UNITS UNIT SUBCUT SCH (21:05)
[2017-07-29] MEDS ORDERED: Cosyntropin* 0.25 MG VIAL IV ONE (06:30)
[2017-07-29 06:47] LABS: Hematocrit 26 % (42-52); Hemoglobin 9.4 g/dl (14.0-18.0); Mean Corpuscular HGB Conc 36 g/dl (31-36); Mean Corpuscular Hemoglobin 40 pg (27-31); Mean Platelet Volume 7 um3 (7.4-10.4); Red Blood Count 2.33 10^6/ul (4.0-5.4); Red Cell Distribution Width 14 % (10.5-15); White Blood Count 5.1 10^3/ul (3.5-10.8)
[2017-07-29 06:52] LABS: Comments Flag Yes; Mean Corpuscular Volume 111 fL (80-94)
[2017-07-29 07:03] LABS: Albumin 1.7 g/dL (3.2-5.2); BUN/Creatinine Ratio 23.9 (8-20); Calcium 7.6 mg/dL (8.6-10.3); EGFR African American 58.3 (>60); EGFR Non-African American 45.4 (>60); Globulin 3.8 g/dL (2-4); Potassium 4.8 mmol/L (3.5-5.0); Total Bilirubin 5.6 mg/dL (0.2-1.0); Total Protein 5.5 g/dL (6.4-8.9)
[2017-07-29] MEDS: Cephalexin CAP* 500 MG PO SCH ×3 (08:52→21:00)
[2017-07-29] MEDS: Gabapentin CAP(*) 100 MG PO SCH ×2 (08:52→21:00)
[2017-07-29] MEDS: Insulin LISPRO* 1 UNITS UNIT SUBCUT SCH ×4 (08:53→20:59)
[2017-07-29] MEDS: oxyCODONE TAB* 5 MG TAB PO PRN ×2 (08:56→17:01)
[2017-07-29] MEDS: Enoxaparin(*) 40 MG/0.4 ML SYR SUBCUT SCH (12:42)
--- NOTE | 2017-07-29 19:55 | PN ---
Subjective Date of Service: 07/29/17 Interval History: Mr. Munson continues to complain of pain to his right ankle. He reports that the current pain regimen helps some. He denies other complaint including chest pain , SOB, nausea, or abdominal pain. Family History: Unchanged from Admission Social History: Unchanged from Admission Past Medical History: Unchanged from Admission Objective Active Medications: Cephalexin HCl (Keflex Cap*) 500 mg PO TID [facility] Dextrose (D50w Syringe 50 Ml*) 12.5 gm IV PUSH .FOR FS < 60 - SS PRN Enoxaparin Sodium (Lovenox(*)) 40 mg SUBCUT Q24H [facility] Gabapentin (Neurontin Cap(*)) 100 mg PO BID [facility] Insulin Glargine (Lantus(*)) 35 units SUBCUT 2100 [facility] Insulin Human Lispro (Humalog*) 0 units SUBCUT ACHS [facility] Ondansetron HCl (Zofran Inj*) 4 mg IV Q6H PRN Oxycodone HCl (Roxycodone Tab*) 5 mg PO Q6H PRN Vital Signs - 8 hr Vital Signs: Temp Pulse Resp BP Pulse Ox 98.4 F 96 20 81/42 96 07/29/17 19:10 07/29/17 19:10 07/29/17 19:10 07/29/17 19:10 07/29/17 19:10 Oxygen Devices in Use Now: None Appearance: Male lying in bed in NAD Eyes: No Scleral Icterus Ears/Nose/Mouth/Throat: Mucous Membranes Moist Neck: Trachea Midline Respiratory: Symmetrical Chest Expansion and Respiratory Effort, Clear to Auscultation Cardiovascular: NL Sounds; No Murmurs; No JVD, No Edema Abdominal: NL Sounds; No Tenderness; No Distention Lymphatic: No Cervical Adenopathy Extremities: No Edema Skin: - - Scant erythema to right medial ankle Neurological: Alert and Oriented x 3, NL Muscle Strength and Tone Nutrition: Taking PO's Result Diagrams: 07/29/17 06:34 07/29/17 06:34 Additional Lab and Data: Lab Results Microbiology and Other Data: . Assess/Plan/Problems-Billing Assessment: Mr. 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 - Patient Problems (1) Cellulitis Comment: - Improvement in erythema and swelling continues. - Continue keflex x 10 days. (2) Post-thrombotic syndrome Comment: - Persistent pain to right ankle, suspect possible post thrombotic syndrome. - Compression bandages ordered. - Patient to continue on gabapentin and oxycodone prn. (3) DVT (deep venous thrombosis) Comment: - Distal DVT with concern for associated thrombophlebitis. - Case reviewed with Dr. Fischer with plan for Lovenox 40mg sq daily for 30 days. (4) Hypotension Comment: - SBP 80-100 - Suspect this is a chronic issue with portal hypertension and cirrhosis. - Hold propranolol and diuretics. (5) Diabetes Comment: - New diagnosis with HgbA1c of 10.8, patient notes that this has been discussed with him but he had not wanted to start treatment. - Continue lantus and lispro 5 units with meals. - Appreciate [facility] consult. Patient educated about home us of insulin and diabetes monitoring. - Patient has significant peripheral neuropathy which may be exacerbating pain with ambulation. Will trial gabapentin for rn long term care control of pain. (6) Hyponatremia Comment: - Now at 124. Increased from 120 yesterday. Will give NS and monitor. Cortisol level low, will order ACTH stimulation test in AM. (7) Cryptogenic cirrhosis Comment: - Patient has opted to forego any liver transplant. - INR 1.33 on 07/24, Platelets 99 on 07/28 (8) Full code status Status and Disposition: Inpatient. Patient with limited mobility, physical therapy consult pending. Anticipate patient will need short term rehab vs SNF.
[2017-07-29] MEDS: Insulin GLARGINE(*) 1 UNITS UNIT SUBCUT SCH (21:00)
[2017-07-30] MEDS ORDERED: oxyCODONE TAB* 5 MG TAB PO PRN (06:55)
[2017-07-30] MEDS: Insulin LISPRO* 1 UNITS UNIT SUBCUT SCH ×2 (08:44→12:44)
[2017-07-30] MEDS: Cephalexin CAP* 500 MG PO SCH ×2 (08:44→12:44)
[2017-07-30] MEDS ORDERED: Gabapentin CAP(*) 100 MG PO SCH (09:00)
[2017-07-30 10:14] LABS: Zinc Transporter 8 (ZnT8) Ab <15.0
--- NOTE | 2017-07-30 10:30 | PN ---
Subjective Date of Service: 07/30/17 Interval History: Mr. Munson reports doing relatively well today. He has some continued pain to his right ankle but is hopeful that compression and adjustments in pain medications will help. He denies other complaint including chest pain, SOB, nausea, or abdominal pain. Family History: Unchanged from Admission Social History: Unchanged from Admission Past Medical History: Unchanged from Admission Objective Active Medications: Cephalexin HCl (Keflex Cap*) 500 mg PO TID [facility] Dextrose (D50w Syringe 50 Ml*) 12.5 gm IV PUSH .FOR FS < 60 - SS PRN Enoxaparin Sodium (Lovenox(*)) 40 mg SUBCUT Q24H [facility] Gabapentin (Neurontin Cap(*)) 200 mg PO BID [facility] Insulin Glargine (Lantus(*)) 35 units SUBCUT 2100 [facility] Insulin Human Lispro (Humalog*) 0 units SUBCUT ACHS [facility] Ondansetron HCl (Zofran Inj*) 4 mg IV Q6H PRN Oxycodone HCl (Roxycodone Tab*) 5 mg PO Q4H PRN Vital Signs - 8 hr 07/30/17 07/30/17 07/30/17 03:27 07:21 07:57 Temperature 97.7 F 97.2 F Pulse Rate 91 81 Respiratory 12 16 20 Rate Blood Pressure 101/48 95/44 (mmHg) O2 Sat by Pulse 97 97 Oximetry 07/30/17 08:44 Temperature Pulse Rate Respiratory 16 Rate Blood Pressure (mmHg) O2 Sat by Pulse Oximetry Oxygen Devices in Use Now: None Appearance: Male sitting up in chair in NAD Eyes: No Scleral Icterus Ears/Nose/Mouth/Throat: Mucous Membranes Moist Neck: Trachea Midline Respiratory: Symmetrical Chest Expansion and Respiratory Effort, Clear to Auscultation Cardiovascular: NL Sounds; No Murmurs; No JVD, - - +1 edema bilaterally Abdominal: NL Sounds; No Tenderness; No Distention Lymphatic: No Cervical Adenopathy Skin: No Rash or Ulcers, - - Minimal erythema to right medial ankle, continues to improve Neurological: Alert and Oriented x 3, NL Muscle Strength and Tone Nutrition: Taking PO's Result Diagrams: 07/29/17 06:34 07/29/17 06:34 Additional Lab and Data: Lab Results Microbiology and Other Data: . Assess/Plan/Problems-Billing Assessment: Mr. 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 - Patient Problems (1) Cellulitis Comment: - Improvement in erythema and swelling continues. - Continue keflex x 10 days. (2) Post-thrombotic syndrome Comment: - Persistent pain to right ankle, suspect possible post thrombotic syndrome. - Compression bandages ordered. - Patient to continue on gabapentin and oxycodone prn. (3) DVT (deep venous thrombosis) Comment: - Distal DVT with concern for associated thrombophlebitis. - Case reviewed with Dr. Fischer with plan for Lovenox 40mg sq daily for 30 days. (4) Hypotension Comment: - SBP 80-100 - Suspect this is a chronic issue with portal hypertension and cirrhosis. - Hold propranolol and diuretics. - Concern for adrenal insufficiency, plan to treat with low dose dexamethasone pending follow up for testing on Wednesday. (5) Diabetes Comment: - New diagnosis with HgbA1c of 10.8, patient notes that this has been discussed with him but he had not wanted to start treatment. - Continue lantus and lispro 5 units with meals. - Appreciate [facility] consult. Patient educated about home us of insulin and diabetes monitoring. - Patient has significant peripheral neuropathy which may be exacerbating pain with ambulation. 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 (6) Hyponatremia Comment: - Stable. - Suspect secondary to cirrhosis. - Plan for ACTH stim test on Wednesday. (7) Cryptogenic cirrhosis Comment: - Patient has opted to forego any liver transplant. - INR 1.33 on 07/24, Platelets 99 on 07/28 (8) Full code status Status and Disposition: Inpatient. Discharge to [facility].
[2017-07-30] MEDS ORDERED: Cosyntropin* 0.25 MG VIAL IV ONE (11:00)
[2017-07-30] MEDS: Enoxaparin(*) 40 MG/0.4 ML SYR SUBCUT SCH (12:44)
--- NOTE | 2017-07-30 13:28 | DS ---
CC: Dr. Wallace * [facility] MEDICINE DISCHARGE SUMMARY: DATE OF ADMISSION: 07/23/17 DATE OF DISCHARGE: 07/30/17 PRIMARY CARE PHYSICIAN: Dr. Wallace ATTENDING PHYSICIAN: Genevieve Casanova MD * (dictation provided by Alesha Marinelli NP ) PRIMARY DIAGNOSES: 1. Thrombophlebitis right ankle. 2. Distal peroneal deep vein thrombosis right lower extremity. 3. Type 2 diabetes (new diagnosis). 4. Question of adrenal insufficiency. SECONDARY DIAGNOSES: 1. 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 2. Transient ischemic attack. 3. History of seizures as a child. MEDICATIONS: 1. Multivitamin with mineral 1 tab p.o. daily. 2. Oxycodone 5 mg p.o. every 4 hours p.r.n. 3. Lispro 5 units subcutaneously q.a.c. 4. Lantus insulin 35 units subcutaneously q.p.m. 5. Gabapentin 200 mg p.o. b.i.d. 6. Enoxaparin 40 mg subcutaneously every 24 hours x21 days. 7. Keflex 500 mg p.o. t.i.d. x10 days. 8. Dexamethasone 0.5mg po daily until results of ACTH stimulation test on Wednesday. HOSPITAL COURSE: Mr. Munson is a 62-year-old with past medical history of cryptogenic cirrhosis who presented to the hospital on 07/23/17 with concern for right lower leg pain. Please see dictated H and P from Kal Talavera NP for complete details. In brief, Mr. Munson had ongoing pain to his right leg. He also had weakness and was unable to transfer at home. In the emergency room he had a Doppler of the right lower extremity that showed an occlusive thrombus at one of the peroneal veins on the right calf, as well as redness to the ankle with concern for associated thrombophlebitis. Mr. Munson was admitted to the hospital. Case was reviewed with Dr. Fischer from [facility] who recommended that he be treated with enoxaparin 40 mg subcutaneously daily for the DVT that was distal. For his associated thrombophlebitis/cellulitis has been treated with Keflex t.i.d. and he is to complete 10 further days of treatment. He will be on Lovenox for a total of 30 days which would equal 21 more days. During this hospitalization Mr. Munson has been noted to have hypotension with blood pressure running 80s to 110s. He has also had hyponatremia with a sodium running between 120 and 128. He has had hyperkalemia with potassium as high as 5.0. We attempted to do a cosyntropin stimulation test but the repeat lab draw was inappropriately timed. I recommend to repeat a lab draw for him outpatient for cosyntropin stimulation test to verify the presence of adrenal insufficiency. In the meantime our plan is to discharge him on a low dose of dexamethasone. During the hospitalization the patient's diuretics have been held. Previously he was on spironolactone and Lasix, and because of his low blood pressure he has not been able to tolerate those medications. I think that if his blood pressure improves that those medications should be resumed given his history of cirrhosis. Mr. Munson has continued to complain of pain to his bilateral lower extremities. I suspect this is due to neuropathy from untreated diabetes, but also do to possible early post thrombotic syndrome. I recommend that the patient has compression stockings on at all times bilateral lower extremities. He is also to continue on gabapentin and low dose oxycodone p.r.n. for pain. During the hospitalization Mr. Munson had elevated blood sugar. His hemoglobin A1c is 10.8. Patient states he does not have a diagnosis of diabetes. but this had been mentioned to him, but it seems he had not wanted to start treatment. While here he has been started on Lantus 35 units q.p.m. with sliding scale, and he has blood sugar today of 157. I think he can continue on Lispro 5 units q.a.c with meals. This can be adjusted as needed based on clinical course. Mr. Munson is medically stable for discharge to [facility] with followup on Wednesday for cosyntropin stimulation test. DISPOSITION: To [facility]. DIET: Consistent carbohydrate. ACTIVITY: As tolerated with physical therapy. FOLLOWUP PLANS: 1. Please followup with cosyntropin stimulation test on Wednesday08/02/17. 2. Please followup with the providers at [facility] per routine. TIME TAKEN: Approximately 75 minutes were spent on the discharge of this patient ; more than half the time was spent with him at the bedside reviewing the events leading up to this hospitalization, performing the physical examination, and reviewing the plan of care. ALESHA MARINELLI, HEALTH AND SAFETY INSTRUCTOR [id number]/[facility] #: [id number] LALI
[2017-07-30 14:01] VITALS: BP 89/47
== END 2017-07-30 14:18 | DRG 383 ==
LOC: ED 09:26 → MED 11:10
PROVIDERS: ADMIT Internal Medicine; ATTEND Internal Medicine
DX: L03.115 Cellulitis of right lower limb (principal); I95.9 Hypotension, unspecified; E11.40 Type 2 diabetes mellitus with diabetic neuropathy, unspecified; I80.291 Phlebitis and thrombophlebitis of other deep vessels of right lower extremity; E11.65 Type 2 diabetes mellitus with hyperglycemia; K74.69 Other cirrhosis of liver; E27.40 Unspecified adrenocortical insufficiency; E87.1 Hypo-osmolality and hyponatremia; I82.4Z1 Acute embolism and thrombosis of unspecified deep veins of right distal lower extremity; E87.5 Hyperkalemia; D64.9 Anemia, unspecified; I87.009 Postthrombotic syndrome without complications of unspecified extremity; Z86.73 Personal history of transient ischemic attack (TIA), and cerebral infarction without residual deficits; Z82.49 Family history of ischemic heart disease and other diseases of the circulatory system; Z83.1 Family history of other infectious and parasitic diseases; Z79.4 Long term (current) use of insulin
CPT/HCPCS: 36415; 76705; 80048; 80053; 81003; 82140; 82533; 82947; 83036; 83605; 83735; 83930; 83935; 84300; 84550; 85025; 85060; 85610; 86140; 86337; 86341; 87040; 87086; 93005; 94760; 99221; A9270-GY; J0690; J0696; J0834; J1650; J2405

== ENCOUNTER 2017-08-03 14:09 | Inpatient (IN) | payer MEDICAID ==
[2017-08-03] MEDS ORDERED: NS 0.9% 1000 ML* 1,000 ML IV ONE (14:53)
[2017-08-03 15:31] LABS: ABS Basophils 0.1 10^3/ul (0-0.2); ABS Eosinophils 0.2 10^3/ul (0-0.6); ABS Lymphocytes 0.6 10^3/ul (1.0-4.8); ABS Monocytes 0.5 10^3/ul (0-0.8); ABS Neutrophils 4.2 10^3/ul (1.5-7.7); ABS Nucleated RBC 0 10^3/ul; Eosinophil % 2.9 % (0-6); Hematocrit 24 % (42-52); Hemoglobin 8.6 g/dl (14.0-18.0); Mean Corpuscular HGB Conc 35 g/dl (31-36); Mean Corpuscular Hemoglobin 40 pg (27-31); Mean Corpuscular Volume 114 fL (80-94); Mean Platelet Volume 7 um3 (7.4-10.4); Nucleated Red Blood Cells % 0; Platelet Count 85 10^3/ul (150-450); Red Blood Count 2.14 10^6/ul (4.0-5.4); Red Cell Distribution Width 14 % (10.5-15); White Blood Count 5.5 10^3/ul (3.5-10.8)
[2017-08-03 15:40] LABS: INR 1.29 (0.77-1.02)
[2017-08-03 15:46] LABS: EGFR Non-African American 22.3 (>60)
[2017-08-03 16:51] LABS: Urine Appearance Cloudy; Urine Blood 3+ (Negative); Urine Color Amber; Urine Ketones Negative (Negative); Urine Protein 1+(30 mg/dL) (Negative); Urine Specific Gravity 1.015 (1.010-1.030); Urine Urobilinogen Positive (Negative)
[2017-08-03] MEDS ORDERED: Phytonadione Oral Solution* 5 MG/25 ML UDC PO ONE (18:03)
[2017-08-03] MEDS ORDERED: Calcium Gluconate INJ* 1 GM in NS 0.9% 100 ML* 100 ML IVPB ONE (18:03)
[2017-08-03] MEDS ORDERED: Sodium Polystyrene ORAL.SOL* 15 GM/60 ML BTL PO ONE ×2 (18:03→21:00)
[2017-08-03] MEDS ORDERED: Insulin REGULAR(*) 1 UNITS UNIT IV PUSH ONE (18:03)
[2017-08-03] MEDS ORDERED: Dextrose 50% Syringe 50 ML* 25 GM/50 ML SYRINGE IV PUSH PRN (18:10)
[2017-08-03] MEDS ORDERED: NS 0.9% 1000 ML* 1,000 ML IV SCH (18:15)
--- NOTE | 2017-08-03 18:56 | RAD ---
INDICATION: Pain and swelling. COMPARISON: July 23, 2017 TECHNIQUE: Duplex interrogation of the Lowerextremity was performed. FINDINGS: Deep veins: The common femoral, great saphenous, profunda femoris, proximal, mid, and distal deep femoral, popliteal, posterior tibial, and peroneal veins are interrogated. There is thrombosis of one of the peroneal veins, unchanged. There is otherwise normal compressibility, augmentation, and phasic flow. Superficial veins: There are no findings of superficial thrombophlebitis. Popliteal fossa:There is no evidence of a popliteal cyst. Soft tissues: There is dependent edema. IMPRESSION: Thrombosis of one of the paired peroneal veins, unchanged. No evidence of cephalad extension of thrombus.
--- NOTE | 2017-08-03 18:57 | RAD ---
INDICATION: Ascites. COMPARISON: July 23, 2017 TECHNIQUE: A Limited abdominal sonogram was performed to evaluate for ascites. FINDINGS: There is a [id number] amount of ascites in all 4 quadrants appearing similar to the July 23, 2017 study. IMPRESSION: MILD/MODERATE ASCITES, UNCHANGED
--- NOTE | 2017-08-03 19:13 | RAD ---
INDICATION: Intracranial injury COMPARISON: None TECHNIQUE: Noncontrast axial source images were acquired from the skull base to the vertex. FINDINGS: Ventricles/sulci: The ventricles and cisterns are normal in size and configuration for age. Brain parenchyma: There is no focal parenchymal finding, evidence of intracranial mass, or intracranial mass effect. Intracranial hemorrhage:None. Extra-axial spaces: There are no abnormal extra axial fluid collections or evidence of extra-axial mass. Calvarium: There is no calvarial fracture or other calvarial abnormality. Scalp: There is no evidence of scalp or extracalvarial soft tissue abnormality. Paranasal sinuses/mastoid: There is complete opacification of the left maxillary antrum with mild expansion. The remaining paranasal sinuses and mastoid air cells are clear. Other: None. IMPRESSION: NO ACUTE INTRACRANIAL FINDINGS. COMPLETE OPACIFICATION LEFT MAXILLARY ANTRUM
[2017-08-03 19:19] LABS: EGFR Non-African American 22.9 (>60)
[2017-08-03] MEDS ORDERED: Octreotide Acetate* 100 MCG/ML 1 ML VIAL SUBCUT SCH (21:00)
--- NOTE | 2017-08-03 21:23 | HP ---
CC: Dr. Wallace * HISTORY AND PHYSICAL: DATE OF ADMISSION: 08/03/17 PRIMARY CARE PROVIDER: Dr. Wallace in [facility]. ATTENDING PHYSICIAN WHILE IN THE HOSPITAL: Eder Bustillo MD * (report dictated by Kal Talavera NP). CHIEF COMPLAINT: Abnormal labs. HISTORY OF PRESENT ILLNESS: Mr. Munson is a 62-year-old male patient who is just admitted into our hospital, recently diagnosed with thrombophlebitis and lower extremity DVT and newly diagnosed with diabetes. He 4 days ago was discharged to [facility] for subacute rehab purposes, however, there he has been having a sharp decline. In the last several days, he has had worsening weakness. He had a fall on Wednesday. He said that he was to have a ACTH stimulation test done yesterday, but that was canceled. He did undergo outpatient lab work and it was noted that he appeared to be hyperkalemic and he has worsening acute renal failure and he was hyponatremic and he was sent over to the hospital for further evaluation. In discussing with the patient, he said it looks like he has gotten more edematous. He states his stomach has gotten bigger, his legs have gotten bigger. He feels much more weak. He feels fatigued. He just states he has not been feeling well. He denied having any chest pain. He denies any shortness of breath. He denies any abdominal discomfort. He is stating that the right foot and ankle is still bothering him, which was a complaint when he was here last time and he states that but there has been anymore redness. He also newly was noted to have a stage II pressure ulcer, which he states it has been bothering him to have to be on his back. He came into the ED, he was evaluated here, again noted he was hyperkalemic, hyponatremic. He appeared to be in worsening renal failure and we were asked to evaluate for admission. PAST MEDICAL HISTORY: Again significant for: 1. Cryptogenic cirrhosis. 2. TIA. 3. Seizures in the past as a child. 4. Diabetes. 5. History of below the knee DVT with thrombophlebitis, which was being treated with Lovenox once daily for 3 weeks and the thrombophlebitis being treated with Keflex. PAST SURGICAL HISTORY: He has had a liver biopsy. He has had an appendectomy. MEDICATIONS: Home meds include: 1. Lovenox 40 mg subcu every 24 hours. 2. Decadron 0.5 mg p.o. daily. 3. Keflex 500 mg p.o. t.i.d. 4. Oxycodone 5 mg p.o. every 4 hours as needed. 5. Multivitamin 1 tablet daily. 6. Lispro 5 units subcu a.c. 7. Lantus 35 units subcu daily at bedtime. 8. Gabapentin 200 mg p.o. b.i.d. ALLERGIES TO MEDICATIONS: Include no known drug allergies. FAMILY HISTORY: His mother had TB. Father had a history of SC and CAD. SOCIAL HISTORY: He does not smoke, does not drink. Surrogate decision maker is his sister, Latisha. REVIEW OF SYSTEMS: There is no documented fever. He does admit to having a increase in weight and weight gain particularly with his increasing swelling. He denied having any chest pain. He denied having any shortness of breath. He denies having any abdominal discomfort. He denied having any nausea, vomiting. No dysuria. He denied having any frequency. There is no seizure. No loss of consciousness. No pruritus and no skin ulcerations. Review of 14 systems was completed, all others negative. PHYSICAL EXAMINATION GENERAL: At this time, Mr. Munson is a chronically ill 62-year-old male patient. He is sitting in the ER stretcher. He does not appear to be in any acute distress. VITAL SIGNS: Blood pressure 100/54, pulse 82, respirations 18, O2 sat 94%, temperature 98.1. HEENT: Head: Atraumatic. Eyes did appear to be icteric. Pupils are reactive to light. Throat: Oral mucosa appears to be dry. No oropharyngeal erythema. NECK: Supple. LUNGS: Clear to auscultation bilaterally. No wheezes, rales, or rhonchi. HEART: Sounds S1, S2. Regular rate and rhythm. No murmurs, rubs, or gallops. ABDOMEN: He did have a moderate amount of ascites. No pain on palpation. EXTREMITIES: He had +4 pitting edema noted up to his thighs. He had 5/5 strength. He is moving all 4 extremities. NEUROLOGIC: At this point neurologically, he is awake, he is alert, he is oriented x3. He does not appear to be encephalopathic. He had no gross focal deficits. SKIN: He does have a stage 2 pressure ulcer noted to the sacrum with what appears to eschar in the middle of the wound. LABORATORY DATA/DIAGNOSTIC STUDIES: Labs revealed a WBC of 5.5, RBC of 2.14, hemoglobin of 8.6, hematocrit of 24. INR 1.29. PTT of 42. His sodium was 121 , potassium was 6.1, his chloride was 93, his bicarb was 24, his BUN was 70, creatinine 2.87, glucose 232. His lactate was 1.7. Calcium 8. Mag 2.5. Total bili 5.4. AST 40, ALT 22, alk phos 172. Ammonia was 52. Troponin 0.02. Albumin 1.7. TSH 1.62. He had a urine that showed 1+ protein, 2+ blood, positive urobilinogen, 1+ wbc, 2+ rbc, 1+ bacteria, 1+ glucose. He had an EKG obtained today, which revealed sinus rhythm with a rate of 85. He had no ST elevations or T wave inversions, which appears to be unchanged from his previous EKG. Old medical records were reviewed. ASSESSMENT AND PLAN: Mr. Munson is a complex 62-year-old male patient coming into the ED today with hyperkalemia, hyponatremia, worsening renal failure. He will be admitted under inpatient status for: 1. Acute renal failure: I suspect this is probably hepatorenal failure. I did touch base with Dr. Almonte who will be evaluating the patient. Plan will be to go ahead and start him on midodrine. I am actually probably going to give him some fluids as well. We will get a urine FENa. I will get a urine random creatinine and sodium. We will check an aldosterone level. I am going to continue his dexamethasone for the hyponatremia and we will follow his creatinine daily and in addition to this, we will continue to follow. We will also give him albumin to see if he responds and repeat his BMP in the morning. 2. Cryptogenic cirrhosis: Again, I am going to check his records from Dr. Wallace. We will check acute hepatitis panel. I will also check his LFTs in the morning and I will also get a copper level. 3. Hyponatremia: Again, I am going to get a urine osmo and serum osmo. He has had a low cortisol level, but his ACTH was low suggesting that he is probably responsive to the dexa that he is on, so we will continue his dexamethasone. I will get urine osmo and serum osmo and we will get a urine sodium as well. We will continue to follow this. We will repeat the BMP later today and again probably this is secondary to his cirrhotic liver disease. 4. Hyperkalemia: Again, probably secondary to his acute renal failure. We will go ahead and give him Kayexalate, calcium gluconate, and insulin. We are going to repeat this. 5. Diabetes: He is on Lispro sliding scale. In addition to this, we will go ahead and put him on his Lantus. 6. History of deep vein thrombosis that is below the knee: In the setting of him having this renal failure, I am worried to give him Lovenox. I am also worried to treat him with full dose heparin. My plan will be to repeat the ultrasound to make sure there is stability and the clot is not expanding. If it is not expanding then I would hold off until his renal function improves and then get him back on his Lovenox. 7. Thrombophlebitis: I am going to put him on Rocephin. In addition to this, he does appear to have a urinary tract infection. So, we will go ahead and put him on Rocephin for that. 8. History of seizure: Not an active issue currently. 9. DVT prophylaxis: I am just going to order SCDs for time being. 10. Code status: Full code. 11. Fluids, electrolytes, and nutrition: He can have a consistent carb diet. TIME SPENT: Time spent on this admission was 70 minutes, greater than half of that time was spent [id number] with the patient obtaining my history and physical, the other half time was spent going over the plan of care with the patient and implementing plan of care. I did discuss the plan of care with my attending, Dr. Bustillo, he is in agreement. KAL TALAVERA, LEONEL [id number]/[facility] #: [id number] LALI
--- NOTE | 2017-08-03 21:41 | ED ---
Peggy Real Julia, scribed for Maxx Barakat MD on 08/03/17 at 1452 . Complex/Multi-Sys Presentation - HPI Summary HPI Summary: Patient is a 62 year old male brought in from [facility] accompanied by his sister with a chief complaint of buttock pain, rated 10/10 in severity, worse since earlier today. Symptoms are alleviated by nothing. Patient reports feeling weak. Sister reports he looks more jaundice than usual. Patient fell on 07/31/17. - History Of Current Complaint Chief Complaint: EDGeneral Time Seen by Provider: 08/03/17 14:36 Hx Obtained From: Patient, Family/Esl Professor Onset/Duration: Still Present, Worse Since Timing: Constant Severity Currently: Severe Alleviating Factor(s): nothing Associated Signs And Symptoms: Positive: Weakness - Allergies/Home Medications Allergies/Adverse Reactions: Allergies Allergy/AdvReac Type Severity Reaction Status Date / Time No Known Allergies Allergy Verified 07/23/17 09:38 PMH/Surg Hx/FS Hx/Imm Hx Endocrine/Hematology History: Reports: Hx Diabetes - Diagnosed 07/2017 Cardiovascular History: Denies: Hx Hypertension GI History: Reports: 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 History: Denies: Other Problems/Disorders Sensory History: Reports: Hx Contacts or Glasses - Not with Patient Denies: Hx Hearing Aid Opthamlomology History: Reports: Hx Contacts or Glasses - Not with Patient Neurological History: Reports: Hx Seizures - as a child, Hx Transient Ischemic Attacks (TIA) Infectious Disease History: No Infectious Disease History: Denies: Traveled Outside the [place] in Last 30 Days - Family History Known Family History: Positive: Cardiac Disease - Father: CAD and MS, Other - Mother: TB - Social History Alcohol Use: None Hx Substance Use: No Substance Use Type: Reports: None Hx Tobacco Use: No Smoking Status (MU): Never Smoked Tobacco Review of Systems Positive: Other - buttock pain, weakness. Negative: Fever Positive: Other - jaundice All Other Systems Reviewed And Are Negative: Yes Physical Exam - Summary Physical Exam Summary: Appearance: The patient is well-nourished in no acute distress and in no acute pain. Skin: The skin is warm and dry and skin color is jaundiced. There are bilateral sacral decubitus ulcers. HEENT: The head is normocephalic and atraumatic. The pupils are equal and reactive. The conjunctivae are scleral icterus and without drainage. Nares are patent and without drainage. Mouth reveals dry mucous membranes and the throat is without erythema and exudate. The external ears are intact. The ear canals are patent and without drainage. The tympanic membranes are intact. Neck: the neck is supple with full range of motion and non-tender. There are no carotid bruits. There is no neck vein distension. Respiratory: Chest is non-tender. Lungs are clear to auscultation and breath sounds are symmetrical and equal. Cardiovascular: Heart is regular rate and rhythm. There is no murmur or rub auscultated. Pulses are symmetrical and equal. Abdomen: The abdomen is soft and non-tender. There are normal bowel sounds heard in all four quadrants and there is no organomegaly palpated. Musculoskeletal: There is no back tenderness noted. Extremities are with full range of motion. There is good capillary refill. There is pitting edema bilaterally. There is diffuse RUE ecchymosis. There are chronic RLE venous stasis changes. Neurological: Patient is alert and oriented to person, place and time. The patient has symmetrical motor strength in all four extremities. Cranial nerves are grossly intact. Deep tendon reflexes are symmetrical and equal in all four extremities. Psychiatric: The patient has an appropriate affect and does not exhibit any anxiety or depression. Triage Information Reviewed: Yes Vital Signs On Initial Exam: Initial Vitals Temp Pulse Resp BP Pulse Ox 98.1 F 81 17 103/56 97 08/03/17 14:17 08/03/17 14:17 08/03/17 14:17 08/03/17 14:17 08/03/17 14:17 Vital Signs Reviewed: Yes Skin: Positive: Other - Skin is jaundiced. There are bilateral sacral decubitus ulcers. ENT: Positive: Other - scleral icterus Musculoskeletal: Positive: Edema Left - pitting, Edema Right - pitting, Other - There is diffuse RUE ecchymosis. There are chronic RLE venous stasis changes. Diagnostics - Vital Signs Vital Signs Temp Pulse Resp BP Pulse Ox 08/03/17 14:17 98.1 F 81 17 103/56 97 - Laboratory Lab Results: Lab Results 08/03/17 08/03/17 08/03/17 Range/Units 15:15 15:15 15:15 WBC 5.5 (3.5-10.8) 10^3/ul RBC 2.14 L (4.0-5.4) 10^6/ul Hgb 8.6 L (14.0-18.0) g/dl Hct 24 L (42-52) % MCV 114 H (80-94) fL MCH 40 H (27-31) pg MCHC 35 (31-36) g/dl RDW 14 (10.5-15) % Plt Count 85 L (150-450) 10^3/ul MPV 7 L (7.4-10.4) um3 Neut % (Auto) 76.8 (38-83) % Lymph % (Auto) 10.0 L (25-47) % Piute % (Auto) 8.8 (1-9) % Eos % (Auto) 2.9 (0-6) % Baso % (Auto) 1.5 (0-2) % Absolute Neuts (auto) 4.2 (1.5-7.7) 10^3/ul Absolute Lymphs (auto) 0.6 L (1.0-4.8) 10^3/ul Absolute Monos (auto) 0.5 (0-0.8) 10^3/ul Absolute Eos (auto) 0.2 (0-0.6) 10^3/ul Absolute Basos (auto) 0.1 (0-0.2) 10^3/ul Absolute Nucleated RBC 0 10^3/ul Nucleated RBC % 0 INR (Anticoag Therapy) 1.29 H (0.77-1.02) APTT 42.0 H (26.0-36.3) seconds Sodium (133-145) mmol/L Potassium (3.5-5.0) mmol/L Chloride (101-111) mmol/L Carbon Dioxide (22-32) mmol/L Anion Gap (2-11) mmol/L BUN (6-24) mg/dL Creatinine (0.67-1.17) mg/dL Est GFR ( Amer) (>60) Est GFR (Non-Af Amer) (>60) BUN/Creatinine Ratio (8-20) Glucose (70-100) mg/dL Lactic Acid (0.5-2.0) mmol/L Calcium (8.6-10.3) mg/dL Magnesium (1.9-2.7) mg/dL Total Bilirubin (0.2-1.0) mg/dL AST (13-39) U/L ALT (7-52) U/L Alkaline Phosphatase (34-104) U/L Ammonia 52 (16-53) mol/L Troponin I (<0.04) ng/mL Total Protein (6.4-8.9) g/dL Albumin (3.2-5.2) g/dL Globulin (2-4) g/dL Albumin/Globulin Ratio (1-3) TSH (0.34-5.60) mcIU/mL Urine Color Urine Appearance Urine pH (5-9) Ur Specific Stan[place] (1.010-1.030) Urine Protein (Negative) Urine Ketones (Negative) Urine Blood (Negative) Urine Nitrate (Negative) Urine Bilirubin (Negative) Urine Urobilinogen (Negative) Ur Leukocyte Esterase (Negative) Urine WBC (Auto) (Absent) Urine RBC (Auto) (Absent) Ur Squamous Epith Cells (Absent) Urine Bacteria (Absent) Hyaline Casts (Absent) Urine Glucose (Negative) 08/03/17 08/03/17 08/03/17 Range/Units 15:15 15:15 16:05 WBC (3.5-10.8) 10^3/ul RBC (4.0-5.4) 10^6/ul Hgb (14.0-18.0) g/dl Hct (42-52) % MCV (80-94) fL MCH (27-31) pg MCHC (31-36) g/dl RDW (10.5-15) % Plt Count (150-450) 10^3/ul MPV (7.4-10.4) um3 Neut % (Auto) (38-83) % Lymph % (Auto) (25-47) % Piute % (Auto) (1-9) % Eos % (Auto) (0-6) % Baso % (Auto) (0-2) % Absolute Neuts (auto) (1.5-7.7) 10^3/ul Absolute Lymphs (auto) (1.0-4.8) 10^3/ul Absolute Monos (auto) (0-0.8) 10^3/ul Absolute Eos (auto) (0-0.6) 10^3/ul Absolute Basos (auto) (0-0.2) 10^3/ul Absolute Nucleated RBC 10^3/ul Nucleated RBC % INR (Anticoag Therapy) (0.77-1.02) APTT (26.0-36.3) seconds Sodium 121 L (133-145) mmol/L Potassium 6.1 H* (3.5-5.0) mmol/L Chloride 93 L (101-111) mmol/L Carbon Dioxide 24 (22-32) mmol/L Anion Gap 4 (2-11) mmol/L BUN 70 H (6-24) mg/dL Creatinine 2.87 H (0.67-1.17) mg/dL Est GFR ( Amer) 28.7 (>60) Est GFR (Non-Af Amer) 22.3 (>60) BUN/Creatinine Ratio 24.4 H (8-20) Glucose 232 H (70-100) mg/dL Lactic Acid 1.7 (0.5-2.0) mmol/L Calcium 8.0 L (8.6-10.3) mg/dL Magnesium 2.5 (1.9-2.7) mg/dL Total Bilirubin 5.40 H (0.2-1.0) mg/dL AST 40 H (13-39) U/L ALT 22 (7-52) U/L Alkaline Phosphatase 179 H (34-104) U/L Ammonia (16-53) mol/L Troponin I 0.02 (<0.04) ng/mL Total Protein 6.1 L (6.4-8.9) g/dL Albumin 1.7 L (3.2-5.2) g/dL Globulin 4.4 H (2-4) g/dL Albumin/Globulin Ratio 0.4 L (1-3) TSH 1.62 (0.34-5.60) mcIU/mL Urine Color Vy Urine Appearance Cloudy Urine pH 5.0 (5-9) Ur Specific Stan[place] 1.015 (1.010-1.030) Urine Protein 1+(30 mg/dl) H (Negative) Urine Ketones Negative (Negative) Urine Blood 3+ H (Negative) Urine Nitrate Negative (Negative) Urine Bilirubin Negative (Negative) Urine Urobilinogen Positive H (Negative) Ur Leukocyte Esterase Negative (Negative) Urine WBC (Auto) 1+(6-10/hpf) H (Absent) Urine RBC (Auto) 3+(>10/hpf) H (Absent) Ur Squamous Epith Cells Present H (Absent) Urine Bacteria 1+ H (Absent) Hyaline Casts Present H (Absent) Urine Glucose 1+(50 mg/dl) H (Negative) 08/03/17 Range/Units 16:55 WBC (3.5-10.8) 10^3/ul RBC (4.0-5.4) 10^6/ul Hgb (14.0-18.0) g/dl Hct (42-52) % MCV (80-94) fL MCH (27-31) pg MCHC (31-36) g/dl RDW (10.5-15) % Plt Count (150-450) 10^3/ul MPV (7.4-10.4) um3 Neut % (Auto) (38-83) % Lymph % (Auto) (25-47) % Piute % (Auto) (1-9) % Eos % (Auto) (0-6) % Baso % (Auto) (0-2) % Absolute Neuts (auto) (1.5-7.7) 10^3/ul Absolute Lymphs (auto) (1.0-4.8) 10^3/ul Absolute Monos (auto) (0-0.8) 10^3/ul Absolute Eos (auto) (0-0.6) 10^3/ul Absolute Basos (auto) (0-0.2) 10^3/ul Absolute Nucleated RBC 10^3/ul Nucleated RBC % INR (Anticoag Therapy) (0.77-1.02) APTT (26.0-36.3) seconds Sodium 122 L (133-145) mmol/L Potassium 5.9 H (3.5-5.0) mmol/L Chloride 94 L (101-111) mmol/L Carbon Dioxide 25 (22-32) mmol/L Anion Gap 3 (2-11) mmol/L BUN 72 H (6-24) mg/dL Creatinine 2.80 H (0.67-1.17) mg/dL Est GFR ( Amer) 29.5 (>60) Est GFR (Non-Af Amer) 22.9 (>60) BUN/Creatinine Ratio 25.7 H (8-20) Glucose 216 H (70-100) mg/dL Lactic Acid (0.5-2.0) mmol/L Calcium 8.0 L (8.6-10.3) mg/dL Magnesium (1.9-2.7) mg/dL Total Bilirubin (0.2-1.0) mg/dL AST (13-39) U/L ALT (7-52) U/L Alkaline Phosphatase (34-104) U/L Ammonia (16-53) mol/L Troponin I (<0.04) ng/mL Total Protein (6.4-8.9) g/dL Albumin (3.2-5.2) g/dL Globulin (2-4) g/dL Albumin/Globulin Ratio (1-3) TSH (0.34-5.60) mcIU/mL Urine Color Urine Appearance Urine pH (5-9) Ur Specific [place] (1.010-1.030) Urine Protein (Negative) Urine Ketones (Negative) Urine Blood (Negative) Urine Nitrate (Negative) Urine Bilirubin (Negative) Urine Urobilinogen (Negative) Ur Leukocyte Esterase (Negative) Urine WBC (Auto) (Absent) Urine RBC (Auto) (Absent) Ur Squamous Epith Cells (Absent) Urine Bacteria (Absent) Hyaline Casts (Absent) Urine Glucose (Negative) Result Diagrams: 08/03/17 15:15 08/03/17 16:55 Lab Statement: Any lab studies that have been ordered have been reviewed, and results considered in the medical decision making process. - EKG 1545 Cardiac Rate: NL EKG Rhythm: Sinus Rhythm - 85 BPM EKG Interpretation: 1st degree block. Nonspecific septal changes. Complex Multi-Symp Course/Dx Course Of Treatment: Mr. Munson was sent over to the ED because his creatinine has been climbing over the last two weeks. He also has new decubital ulcers. He is being admitted to the hospitalist service. - Diagnoses Provider Diagnoses: Acute renal failure (ARF) Discharge - Discharge Plan Condition: Stable Disposition: ADMITTED TO [facility] Referrals: Severino Wallace MD [Primary Care Provider] - The documentation as recorded by the Peggy villatoro Julia accurately reflects the service I personally performed and the decisions made by , Maxx Barakat MD.
[2017-08-03] MEDS ORDERED: cefTRIAXone(*) 1 GM in D5W 50 ML BAG* 50 ML IVPB SCH (22:00)
[2017-08-03] MEDS: cefTRIAXone(*) 1 GM in NS 0.9% 50 ML* 50 ML IVPB SCH (23:14)
[2017-08-03 23:57] LABS: EGFR Non-African American 22.7 (>60)
[2017-08-04] MEDS: Albumin Human 25%* 25 GM/100 ML BTL IV SCH ×3 (00:49→03:37)
[2017-08-04] MEDS: Gabapentin CAP(*) 100 MG PO SCH ×3 (00:50→23:37)
[2017-08-04] MEDS: Insulin GLARGINE(*) 1 UNITS UNIT SUBCUT SCH ×2 (00:51→23:38)
[2017-08-04] MEDS: CMCS Midodrine (NF) 5 MG TAB PO SCH ×4 (01:44→23:37)
[2017-08-04 07:13] LABS: ABS Basophils 0 10^3/ul (0-0.2); ABS Eosinophils 0.2 10^3/ul (0-0.6); ABS Lymphocytes 0.5 10^3/ul (1.0-4.8); ABS Monocytes 0.3 10^3/ul (0-0.8); ABS Neutrophils 2.2 10^3/ul (1.5-7.7); ABS Nucleated RBC 0.01 10^3/ul; Eosinophil % 4.8 % (0-6); Hematocrit 20 % (42-52); Hemoglobin 7.2 g/dl (14.0-18.0); Lymphocyte % 16.1 % (25-47); Mean Corpuscular HGB Conc 36 g/dl (31-36); Mean Corpuscular Hemoglobin 41 pg (27-31); Mean Platelet Volume 7 um3 (7.4-10.4); Nucleated Red Blood Cells % 0.2; Platelet Count 69 10^3/ul (150-450); Red Blood Count 1.78 10^6/ul (4.0-5.4); Red Cell Distribution Width 14 % (10.5-15); White Blood Count 3.3 10^3/ul (3.5-10.8)
[2017-08-04 07:19] LABS: Mean Corpuscular Volume 113 fL (80-94)
[2017-08-04 07:33] LABS: EGFR Non-African American 22.9 (>60)
[2017-08-04 07:35] LABS: INR 1.36 (0.77-1.02)
[2017-08-04] MEDS: Dexamethasone TAB* 0.5 MG PO SCH (08:02)
[2017-08-04] MEDS ORDERED: Sodium Polystyrene ORAL.SOL* 15 GM/60 ML BTL PO ONE (08:35)
[2017-08-04] MEDS: Insulin LISPRO* 1 UNITS UNIT SUBCUT SCH ×3 (10:16→19:36)
--- NOTE | 2017-08-04 10:49 | ECHO ---
Patient: DAXA GARCIA [facility] Rec#: [id number] : 1955 Date: 08/04/2017 Age: 62y Height: 177.8 cm / 70.0 in Weight: 101.15 kg / 222.9 lbs Sex: M BSA: 2.19 Room#: [facility] Admit Date#: 08/03/2017 Type: Inpatient Referring: Kal Talavera NP Reading: Lavinia Tavera MD Rn Mental Health: Jamilah Choi RDCS CC: Severino Wallace MD Transthoracic Echocardiogram Indication: Anasarca BP: 108/46 HR: 86 Rhythm: NSR Findings History: Cryptogenic cirrhosis, TIA, seizures in childhood, DM, lower extremity DVT secondary to thrombophlebitis. Technical Comments: The study quality is good. Completed at 1030. Left Ventricle: The left ventricular chamber size is normal. Mild concentric left ventricular hypertrophy is observed. Global left ventricular wall motion and contractility are within normal limits. There is normal left ventricular systolic function. The estimated ejection fraction is 60-65%. Normal left ventricular diastolic filling is observed. Left Atrium: The left atrium is moderately dilated. Right Ventricle: The right ventricle is mild to moderately dilated. The right ventricular global systolic function is normal. Right Atrium: The right atrium is mild to moderately dilated. Aortic Valve: The aortic valve is trileaflet. The aortic valve leaflets are mildly thickened. There is no evidence of aortic regurgitation. There is no evidence of aortic stenosis. Mitral Valve: There is mitral annular calcification. The mitral valve leaflets are mildly thickened. There is mild mitral regurgitation. There is no evidence of mitral stenosis. Tricuspid Valve: The tricuspid valve leaflets are normal. There is mild tricuspid regurgitation. The right ventricular systolic pressure is estimated at 47 mmHg. There is evidence of moderate pulmonary hypertension. There is no tricuspid stenosis. Pulmonic Valve: The pulmonic valve appears normal. There is a trace pulmonic regurgitation. There is no pulmonic stenosis. Pericardium: There is no significant pericardial effusion. A pericardial fat pad is visualized. A left pleural effusion is present. Aorta: There is no dilatation of the ascending aorta. There is no dilatation of the aortic arch. There is mild dilatation of the aortic root. Pulmonary Artery: The main pulmonary artery is not well visualized. Venous: The inferior vena cava is dilated. There is less than 50% respiratory change in the inferior vena cava dimension. Conclusions Mild concentric left ventricular hypertrophy is observed. Global left ventricular wall motion and contractility are within normal limits. Left ventricular ejection fraction is 60-65%. The right ventricle is mild to moderately dilated. The right ventricular global systolic function is normal. The aortic valve leaflets are mildly thickened with normal function. There is mild mitral regurgitation. There is mild tricuspid regurgitation. The right ventricular systolic pressure is estimated at 47 mmHg, moderate pulmonary hypertension. No prior echo available to compare. Measurements Name Value Normal Range RVIDd (AP) 2D 3.1 cm (0.9 - 2.6) RVDdMajor (2D) 4.9 cm (2.2 - 4.4) RAd ISD 4CH 5.4 cm (3.4 - 4.9) RA (A4C)W 4.3 cm (2.9 - 4.6) IVSd (2D) 1.1 cm (0.6 - 1) LVPWd (2D) 1.1 cm (0.6 - 1) LVIDd (2D) 5.2 cm (3.6 - 5.4) LVIDs (2D) 3.3 cm - LV FS (2D) 37 % (25 - 45) EF Teichholz (2D) 66 % - Aortic Annulus 1.8 cm (1.4 - 2.6) Ao root diameter (2D) 3.6 cm (2.1 - 3.5) Ascending Ao 3.2 cm (2.1 - 3.4) Aortic arch 2.8 cm (1.8 - 3.4) LA dimension (AP) 2D 4.5 cm (2.3 - 3.8) LAd ISD 4CH 5.5 cm (2.9 - 5.3) LA ISD 4CH W 5.7 cm (2.5 - 4.5) Name Value Normal Range LA ESV SP 4CH (A/L) 112 ml - LA ESV SP 2CH (A/L) 82 ml - LA ESV BP (A/L) 98 ml - LA ESV BP (A/L) index 45 ml/m2 - LA ESV SP 4CH (MOD) 106 ml - LA ESV SP 2CH (MOD) 78 ml - Name Value Normal Range MV E-wave Vmax 0.94 m/sec - MV deceleration time 138.6 msec - MV A-wave Vmax 0.64 m/sec - MV E:A ratio 1.47 ratio - LV septal e' Vmax 0.11 m/sec - LV lateral e' Vmax 0.11 m/sec - LV E:e' septal ratio 8.54 ratio - LV E:e' lateral ratio 8.54 ratio - Name Value Normal Range AV Vmax 1.31 m/sec - AV VTI 29 cm - AV peak gradient 6.92 mmHg - AV mean gradient 4.14 mmHg - LVOT Vmax 1.2 m/sec - LVOT VTI 26.15 cm - LVOT peak gradient 5.53 mmHg - LVOT mean gradient 2.96 mmHg - LIANA Vmax 0.9 m/sec - Name Value Normal Range TR Vmax 2.6 m/sec - TR peak gradient 27 mmHg - RAP 20 mmHg - RVSP 47 mmHg - IVC diameter 2.6 cm - Name Value Normal Range PV Vmax 0.93 m/sec - PV peak gradient 3.5 mmHg -
--- NOTE | 2017-08-04 11:31 | PN ---
Subjective Date of Service: 08/04/17 Interval History: This is a 62 yo male with liver cirrhosis, DM and h/o cirrhosis with recent admission for DVT and thrombophlebitis. He was discharged to [facility] and returned with c/o malaise and generalized edema with evidence of acute renal failure, decompensated liver disease and multiple electrolyte derangements. Patient was not complaining of abd pain at the time of admission. He received albumin at 1mg/kg dosing along with NS. Ceftriaxone was continued for recent cellulitis. Today, patient feels that he is more puffy today. He reports feeling abd bloating, but no severe pain. No cough or SOB. Objective Active Medications: Dexamethasone (Decadron Tab*) 0.5 mg PO DAILY [facility] Last Admin: 08/04/17 08:02 Dose: 0.5 mg Dextrose (D50w Syringe 50 Ml*) 12.5 gm IV PUSH .FOR FS < 60 - SS PRN PRN Reason: FS < 60 Gabapentin (Neurontin Cap(*)) 200 mg PO BID [facility] Last Admin: 08/04/17 08:02 Dose: 200 mg Ceftriaxone Sodium 1 gm/ (Sodium Chloride) 50 mls @ 200 mls/hr IVPB Q24H [facility] Last Admin: 08/03/17 23:14 Dose: 200 mls/hr Albumin Human (Albumin Human 25%*) 25 gm in 100 mls @ 400 mls/hr IV .(ENTER) [facility] PRN Reason: 100 GM/HR Insulin Glargine (Lantus(*)) 35 units SUBCUT 2100 [facility] Last Admin: 08/04/17 00:51 Dose: 35 units Insulin Human Lispro (Humalog*) 0 units SUBCUT AC [facility] PRN Reason: Protocol Last Admin: 08/04/17 10:16 Dose: 3 unit Midodrine (Midodrine (Nf)) 5 mg PO TID [facility] PRN Reason: Protocol Last Admin: 08/04/17 08:02 Dose: 5 mg Oxycodone HCl (Roxycodone Tab*) 5 mg PO Q4H PRN PRN Reason: PAIN Vital Signs: Temp Pulse Resp BP Pulse Ox 97.8 F 81 24 96/50 93 08/04/17 07:22 08/04/17 07:22 08/04/17 08:02 08/04/17 07:22 08/04/17 07:22 Oxygen Devices in Use Now: None Appearance: Chronically ill appearing 62 yo gentleman in NAD Respiratory: Symmetrical Chest Expansion and Respiratory Effort, Clear to Auscultation Cardiovascular: NL Sounds; No Murmurs; No JVD, RRR Abdominal: - - mild distention, diffuse TTP Extremities: - - edema diffusely in all extremities Skin: No Rash or Ulcers Neurological: Alert and Oriented x 3 Result Diagrams: 08/04/17 06:45 08/04/17 06:45 Additional Lab and Data: . Microbiology and Other Data: Microbiology 08/04/17 07:30 Nasal Screen MRSA (PCR)(LATONIA) - Final Nasal Mrsa Negative Diagnostic Imaging: US abd - mild/mod ascites Doppler US - no extension of prior DVT (R peroneal vein) Assess/Plan/Problems-Billing Assessment: This is a 62 yo male with liver cirrhosis, recent diagnosis of DM and h/o TIA who presented with c/o malaise with acute renal failure, liver failure and multiple electrolyte derangements. - Patient Problems (1) Acute kidney failure Comment: Possible hepatorenal syndrome Little to no improvement with volume expansion Will trial another albumin challenge Urine studies were unfortunately not collected at admission, but will be collected today Cont midodrine per Dr Almonte's recommendation (2) Liver failure Comment: Acute on chronic Known liver cirrhosis, not established with nutrition aide or home theater experience expert per patient Records from PCP requested and pending, sounds like patient has had a prior liver bx Requested diagnostic paracentesis to be performed bedside by general surgery to eval for SBP Will trial another albumin challenge Request GI consult when available (3) Electrolyte abnormality Comment: Hyperkalemia and hyponatremia at admission Improving Likely due to renal and hepatic dysfunction (4) Adrenal insufficiency Comment: Empirically started on low dose dexamethasone during last admission Cosyntropin stim test was pending Plan to continue dexamethasone at this time (5) DVT (deep venous thrombosis) Comment: Recent diagnosis of distal DVT No propagation noted on repeat Doppler from yesterday Recommendation from hematology was treatment of Lovenox 40mg sq daily for 30 days. (6) Diabetes Comment: New diagnosis as of last hospitalization with HgbA1c of 10.8 Cont basal/bolus insulin coverage (7) Full code status (8) DVT prophylaxis Comment: SQ Lovenox Status and Disposition: Inpatient. Anticipate need for several additional days of hospitalization with return to [facility] at discharge.
[2017-08-04] MEDS ORDERED: Albumin Human 25%* 25 GM/100 ML BTL IV ONE (12:00)
[2017-08-04] MEDS: oxyCODONE TAB* 5 MG TAB PO PRN ×2 (16:41→19:44)
[2017-08-04] MEDS ORDERED: Morphine INJ* 4 MG/ML 1 ML CARPUJECT IV ONE (17:10)
[2017-08-04 18:21] LABS: EGFR Non-African American 23.3 (>60)
--- NOTE | 2017-08-04 19:12 | RAD ---
INDICATION: History of cirrhosis. Cholelithiasis COMPARISON: Sonogram June 25, 2010 TECHNIQUE: Longitudinal and transverse scans of the abdomen were obtained. Doppler interrogation of the hepatic and portal venous system was performed. FINDINGS: Liver: The liver is heterogeneous with a nodular configuration consistent with known cirrhosis. There is no discrete mass. Vessels: Hepatic and portal veins are patent and show normal directional flow. The left right portal veins are not well evaluated, however. The umbilical vein is probably recanalized. Bile ducts: There is no evidence of intrahepatic or extrahepatic ductal dilatation. The common duct measures 0.4 cm. Gallbladder: Multiple gallstones with thickened gallbladder wall which measures 0.8 cm. Pancreas: Not well evaluated the pancreatic duct is mildly prominent Spleen: Splenomegaly without focal mass. The spleen measures 15.1 cm. Kidneys: The kidneys are normal in size and echogenicity. There are no masses or calculi. There is no evidence of hydronephrosis. The right kidney measures 11.8 x 4.9 x 5.0 cm and the left kidney measures 12.5 x 6.5 x 5.7 cm. IVC and aorta: The aorta and superior vena cava appear normal. Fluid: Mild ascites in all 4 quadrants with the patient's recently undergone paracentesis. Other: None. IMPRESSION: CIRRHOTIC LIVER MORPHOLOGY. SECONDARY FINDINGS INCLUDE SPLENOMEGALY AND PRESUMED RECANALIZATION OF THE UMBILICAL VEIN. CHOLELITHIASIS WITH THICKENED GALLBLADDER WALL. SMALL AMOUNT OF ASCITES. NO HYDRONEPHROSIS
[2017-08-04] MEDS ORDERED: Enoxaparin(*) 40 MG/0.4 ML SYR SUBCUT SCH (20:00)
[2017-08-04] MEDS: cefTRIAXone(*) 1 GM in NS 0.9% 50 ML* 50 ML IVPB SCH (23:50)
[2017-08-05 06:38] LABS: ABS Basophils 0 10^3/ul (0-0.2); ABS Eosinophils 0.2 10^3/ul (0-0.6); ABS Lymphocytes 0.7 10^3/ul (1.0-4.8); ABS Monocytes 0.5 10^3/ul (0-0.8); ABS Neutrophils 3.8 10^3/ul (1.5-7.7); ABS Nucleated RBC 0 10^3/ul; Eosinophil % 4.7 % (0-6); Hematocrit 21 % (42-52); Hemoglobin 7.3 g/dl (14.0-18.0); Lymphocyte % 12.9 % (25-47); Mean Corpuscular HGB Conc 36 g/dl (31-36); Mean Corpuscular Hemoglobin 41 pg (27-31); Mean Corpuscular Volume 114 fL (80-94); Mean Platelet Volume 7 um3 (7.4-10.4); Nucleated Red Blood Cells % 0.1; Red Cell Distribution Width 15 % (10.5-15); White Blood Count 5.3 10^3/ul (3.5-10.8)
[2017-08-05 06:41] LABS: Platelet Count 74 10^3/ul (150-450)
--- NOTE | 2017-08-05 06:49 | OP ---
CC: Waldo Mtz; [facility] * CONSULTATION AND PROCEDURE REPORT: DATE OF OPERATION: 08/04/17 - ROOM #448 DATE OF : 51. SURGEON: Daniel Pina MD. PREOPERATIVE DIAGNOSIS: POSTOPERATIVE DIAGNOSIS: OPERATIVE PROCEDURE: Paracentesis. INDICATIONS: I was contacted by the hospital service to perform a diagnostic paracentesis on Mr. Munson, a 62-year-old gentleman, who is admitted to the hospital for a second occasion in 2 weeks with renal failure and the patient has had known cirrhosis. The patient newly diagnosed with diabetes who was noted on ultrasound from yesterday to have a [id number] ascites, unchanged when compared to 07/23/17 study. Patient is not complaining of any abdominal pain; however, the concern for the hospitalist service was a possibility of spontaneous bacterial peritonitis. The patient was brought down to the preoperative area on a stretcher. He was unable to move secondary to significant leg swelling, kept patient on the stretcher. Ultrasound was placed on his abdomen. There was mild amount of ascites noted in the right lower quadrant. The patient was positioned in the right decubitus position and the area was marked, consent was signed when I discussed with him the risks, benefits, and alternatives. The possibility of developing infected ascites and the possibility of bleeding or injury. Patient agreed and signed consent. I did make an attempt to reach out to the patient's family members, but only got his [id number]. DESCRIPTION OF PROCEDURE: Procedure was attempted by injecting with lidocaine 1 % for local block at the point chosen just in the right paramedian line just inferior to the umbilicus. I did enter into the abdomen and aspirated a yellow transparent fluid, but when I made an attempt to place an 8-Jamaican catheter in, it did not advance with any ease and I could not aspirate. It was at this point I abandoned the procedure after 3 attempts. I did not obtain any additional fluid, and the area was bandaged and the patient was transferred back to the floor. PLAN: Plan would be for a workup including a CAT scan. Patient may require a diagnostic paracentesis through the radiology department as I was unable to gain access under these circumstances; however, I do believe the patient is not suffering from spontaneous bacterial peritonitis given the fact that the patient has no fever, no white count, and no abdominal pain. [id number]/[facility] #: [id number] [facility]
[2017-08-05 06:59] LABS: INR 1.36 (0.77-1.02)
[2017-08-05] MEDS ORDERED: NS 0.9% 1000 ML* 1,000 ML IV ONE (07:23)
[2017-08-05] MEDS ORDERED: cefTRIAXone(*) 2 GM in NS 0.9% 50 ML* 50 ML IVPB SCH (07:25)
[2017-08-05] MEDS ORDERED: cefTRIAXone(*) 2 GM in NS 0.9% 100 ML* 100 ML IVPB SCH (08:00)
[2017-08-05] MEDS: cefTRIAXone(*) 2 GM in NS 0.9% 100 ML* 100 ML IVPB SCH (08:03)
[2017-08-05] MEDS: Insulin LISPRO* 1 UNITS UNIT SUBCUT SCH ×3 (08:03→17:07)
[2017-08-05] MEDS: Dexamethasone TAB* 0.5 MG PO SCH (10:13)
[2017-08-05] MEDS: Gabapentin CAP(*) 100 MG PO SCH ×2 (10:20→22:01)
[2017-08-05] MEDS: oxyCODONE TAB* 5 MG TAB PO PRN (10:21)
[2017-08-05] MEDS: CMCS Midodrine (NF) 5 MG TAB PO SCH ×2 (10:22→10:54)
[2017-08-05] MEDS: NS 0.9% 1000 ML* 1,000 ML IV SCH (10:31)
[2017-08-05] MEDS ORDERED: CMCS:Midodrine (NF) 5 MG TAB PO ONE (11:00)
[2017-08-05 12:02] LABS: Copper Level 1.1 mcg/mL (0.75-1.45)
--- NOTE | 2017-08-05 12:50 | PN ---
Subjective Date of Service: 08/05/17 Interval History: CAT call this am for decreased responsiveness. Vitals stable, low urine output overnight (75ml in 12h). Patient is able to slowly answer yes/no questions. Feels weak and otherwise denies other acute complaints. No SOB. Objective Active Medications: Dexamethasone (Decadron Tab*) 0.5 mg PO DAILY [facility] Last Admin: 08/05/17 10:13 Dose: 0.5 mg Dextrose (D50w Syringe 50 Ml*) 12.5 gm IV PUSH .FOR FS < 60 - SS PRN PRN Reason: FS < 60 Enoxaparin Sodium (Lovenox(*)) 40 mg SUBCUT 2000 [facility] Last Admin: 08/04/17 23:38 Dose: 40 mg Gabapentin (Neurontin Cap(*)) 200 mg PO BID [facility] Last Admin: 08/05/17 10:20 Dose: 200 mg Ceftriaxone Sodium 2 gm/ (Sodium Chloride) 100 mls @ 200 mls/hr IVPB Q24H [facility] Last Admin: 08/05/17 08:03 Dose: 200 mls/hr Sodium Chloride (Ns 0.9% 1000 Ml*) 1,000 mls @ 75 mls/hr IV PER RATE [facility] Last Admin: 08/05/17 10:31 Dose: 75 mls/hr Insulin Glargine (Lantus(*)) 35 units SUBCUT 2100 [facility] Last Admin: 08/04/17 23:38 Dose: 35 units Insulin Human Lispro (Humalog*) 0 units SUBCUT AC [facility] PRN Reason: Protocol Last Admin: 08/05/17 08:03 Dose: 3 unit Lactulose (Lactulose*) 30 ml PO QID [facility] Last Admin: 08/05/17 08:04 Dose: 30 ml Midodrine (Midodrine (Nf)) 10 mg PO TID [facility] PRN Reason: Protocol Morphine Sulfate (Morphine Inj (Syringe)*) 4 mg IV Q4H PRN PRN Reason: PAIN Oxycodone HCl (Roxycodone Tab*) 10 mg PO Q4H PRN PRN Reason: PAIN Last Admin: 08/05/17 10:21 Dose: 10 mg Vital Signs: Temp Pulse Resp BP Pulse Ox 98.3 F 77 12 101/46 98 08/05/17 12:00 08/05/17 12:00 08/05/17 12:28 08/05/17 12:00 08/05/17 12:00 Oxygen Devices in Use Now: Nasal Cannula Appearance: Lethargic 62 yo male in NAD Respiratory: Symmetrical Chest Expansion and Respiratory Effort, Clear to Auscultation Cardiovascular: NL Sounds; No Murmurs; No JVD, RRR Abdominal: - - mildly distended, no c/o TTP Extremities: - - diffuse edema in all extremities Skin: - - noted sacral ulcer, not directed visualized Neurological: - - diffusely weak, no focal changes Result Diagrams: 08/05/17 06:13 08/05/17 06:13 Additional Lab and Data: Laboratory Tests 08/05/17 09:00 Fluid Source Peritonial fluid Fluid WBC 84 Fluid RBC 364 Fluid Tot Cell Count 100 Fluid Neutrophils 31 Fluid Lymphocytes 29 Fluid Monocytes 40 Microbiology and Other Data: Microbiology 08/04/17 07:30 Nasal Screen MRSA (PCR)(LATONIA) - Final Nasal Mrsa Negative Diagnostic Imaging: US abd - mild/mod ascites Doppler US - no extension of prior DVT (R peroneal vein) Assess/Plan/Problems-Billing Assessment: This is a 62 yo male with liver cirrhosis, recent diagnosis of DM and h/o TIA who presented with c/o malaise with acute renal failure, liver failure and multiple electrolyte derangements. - Patient Problems (1) Acute hepatic encephalopathy Comment: Acute rise in ammonia since admission to [facility] Start lactulose and titrate to 3-4 BMs daily (2) Acute kidney failure Comment: Possible hepatorenal syndrome Little to no improvement with volume expansion Poor urine output overnight Discussed with Dr Almonte, plan to bolus NS and increase midodrine, consider adding octreotide if no improvement in output Urine studies suggest pre-renal etiology with FeNa of 0.2% (3) Liver failure Comment: Acute on chronic Close review of hepatic studies does not show significant change in INR, Tbili, albumin, or platelets when compared to admission 10d ago when renal function was better Diagnostic paracentesis completed today by IR, cell counts are not suggestive of SBP, but difficult to interpret as he has been treated with antibiotics for 2d now Requested GI consult from Dr Ferguson today Known liver cirrhosis, not established with global vp creative + content marketing or middle school football coach per patient PCP records reviewed which were limited (4) Electrolyte abnormality Comment: Hyperkalemia and hyponatremia Improving Likely due to renal and hepatic dysfunction (5) Adrenal insufficiency Comment: Empirically started on low dose dexamethasone during last admission Cosyntropin stim test was pending Plan to continue dexamethasone at this time (6) DVT (deep venous thrombosis) Comment: Recent diagnosis of distal DVT No propagation noted on repeat Doppler from yesterday Recommendation from hematology was treatment of Lovenox 40mg sq daily for 30 days. (7) Diabetes Comment: New diagnosis as of last hospitalization with HgbA1c of 10.8 Cont basal/bolus insulin coverage (8) Full code status (9) DVT prophylaxis Comment: SQ Lovenox Status and Disposition: Inpatient. Anticipate need for several additional days of hospitalization with return to [facility] at discharge.
--- NOTE | 2017-08-05 13:12 | RAD ---
CPT II Codes: 6100F ULTRASOUND-GUIDED PARACENTESIS. INDICATION: Ascites. COMPARISON: Ultrasound of the abdomen August 04, 2017 IMAGING FINDINGS AND PROCEDURE NOTE: The benefits of the and risks of procedure explained to the patient. The patient consented of the exam. The patient was brought to the ultrasound suite and multiple images of the peritoneal fluid were obtained. There was a moderate amount of ascites present throughout the abdomen. The largest pocket of fluid was chosen for the paracentesis which was in the left lower quadrant. A time out was performed before beginning the procedure. The patient was prepped and draped in the usual sterile fashion. The patient?s abdominal wall at the site was anesthetized with 1% lidocaine. A small skin hamilton was made to admit the paracentesis needle and catheter. Under sonographic control the drainage catheter was advanced into the ascites pocket. An image was saved. Approximately 1.7 Liters of a yellow tinged fluid was removed. The patient tolerated procedure well without incident. IMPRESSION: UNCOMPLICATED ULTRASOUND-GUIDED PARACENTESIS DESCRIBED ABOVE.
[2017-08-05] MEDS: CMC:Midodrine (NF) 5 MG TAB PO SCH ×2 (16:03→22:02)
--- NOTE | 2017-08-05 19:57 | RAD ---
INDICATION: Abdominal pain. Ascites. COMPARISON: Abdominal sonogram August 04, 2017 TECHNIQUE: A single view of the abdomen is submitted. FINDINGS: Bones: There are no acute bony findings. Soft tissues: The soft tissues appear normal. The psoas margins are sharp. Bowel gas pattern: Normal Calcifications: There are no abnormal calcifications. Other: None IMPRESSION: NO ACUTE DIAGNOSTIC FINDINGS. THERE IS NO EVIDENCE OF OBSTRUCTION.
[2017-08-05] MEDS ORDERED: Enoxaparin(*) 30 MG/0.3 ML SYR SUBCUT SCH (20:00)
--- NOTE | 2017-08-05 20:05 | CONS ---
CC: Dr. Severino Wallace* CONSULTATION REPORT: DATE OF CONSULT: 08/05/17 REQUESTING PROVIDER: JUSTIN Gilbert PRIMARY CARE PHYSICIAN: Dr. Severino Wallace. INDICATION: Cirrhosis. NARRATIVE: Mr. Munson is a 62-year-old gentleman, who has cryptogenic cirrhosis, who was admitted to the hospital with worsening renal insufficiency. He also had a history of TIAs, seizures, diabetes. The patient came in, was [facility] due to [facility] and weakness. He was found to have worsening renal insufficiency. He has been seen at the [facility], they are his primary satellite dish technician and special shopper. Limited notes from them reveal presumed cryptogenic cirrhosis with a MELD of 9 back in 2009. Currently, he is encephalopathic. He does have asterixis. He has been started on lactulose; however, he has not had any bowel movements today. He did have a paracentesis, which did not reveal SBP. He is minimally alert. He does know his name, but does not really know where he is. PAST MEDICAL HISTORY: Please see the HPI. PAST SURGICAL HISTORY: Includes appendectomy. MEDICATIONS AT HOME: Include: 1. Lovenox. 2. Decadron. 3. Keflex. 4. Oxycodone. 5. Lispro. 6. Lantus. 7. Gabapentin. ALLERGIES: None. FAMILY HISTORY: TB and coronary artery disease. SOCIAL HISTORY: No tobacco or alcohol. REVIEW OF SYSTEMS: Unable to obtain from the patient at this time due to his lethargy. PHYSICAL EXAM: Temperature is 98.3, blood pressure is 101/46, pulse is 77. General: Very lethargic male, appears older than stated age. Minimally alert. Only oriented to person, not place or time. Neuro: Positive asterixis. HEENT : Mucous membranes are moist. Dentition is poor. He does have scleral icterus. Heart: Regular rate and rhythm. Lungs: Coarse breath sounds bilaterally. Abdomen: Distended. Positive bowel sounds, soft, nontender. Skin is warm and dry. DIAGNOSTIC STUDIES/LAB DATA: Of note, MELD is 31. INR is 1.36. Platelets of 74, hemoglobin 7.3, white count of 5.3. Sodium is 126, BUN of 77, creatinine is 3.02. Bilirubin is 4.6, AST is 49, ALT is 25, alk is 174. Ammonia of 136, albumin is 2.4. Paracentesis revealed 31% neutrophils. ASSESSMENT AND PLAN: Gentleman with cirrhosis. Regarding his encephalopathy, he does need more lactulose, I will give him another dose now and we need to put him on q.2 30 mL lactulose until he starts having a bowel movement then we can back off to q.6. He does have asterixis at this point. His spontaneous bacterial peritonitis was ruled out. He does have renal insufficiency, very well could be hepatorenal. He has been started on midodrine and potentially octreotide. I would not use diuretics at this point for his ascites. His hyponatremia is likely multifactorial. MELD score of 31. It does not appear that he has been sent for a transplant evaluation by his [facility]. We will continue to follow along. He can follow up with his [facility] satellite dish technician and special shopper at discharge. [id number]/[facility] #: [id number] MTDD
[2017-08-05] MEDS: Lactulose 300 ML for PR* 10 GM/15 ML BTL PR SCH (21:09)
[2017-08-05] MEDS: Insulin GLARGINE(*) 1 UNITS UNIT SUBCUT SCH (21:29)
[2017-08-06] MEDS: Lactulose 300 ML for PR* 10 GM/15 ML BTL PR SCH ×3 (02:17→05:49)
[2017-08-06] MEDS: CMC:Midodrine (NF) 5 MG TAB PO SCH ×4 (03:29→20:28)
[2017-08-06] MEDS: NS 0.9% 1000 ML* 1,000 ML IV SCH ×2 (05:48→20:23)
[2017-08-06 07:21] LABS: ABS Basophils 0.1 10^3/ul (0-0.2); ABS Eosinophils 0.2 10^3/ul (0-0.6); ABS Lymphocytes 0.6 10^3/ul (1.0-4.8); ABS Monocytes 0.4 10^3/ul (0-0.8); ABS Neutrophils 7.7 10^3/ul (1.5-7.7); ABS Nucleated RBC 0 10^3/ul; Eosinophil % 1.9 % (0-6); Hematocrit 25 % (42-52); Hemoglobin 8.7 g/dl (14.0-18.0); Lymphocyte % 6.6 % (25-47); Mean Corpuscular HGB Conc 36 g/dl (31-36); Mean Corpuscular Hemoglobin 41 pg (27-31); Mean Platelet Volume 7 um3 (7.4-10.4); Nucleated Red Blood Cells % 0; Red Blood Count 2.12 10^6/ul (4.0-5.4); Red Cell Distribution Width 14 % (10.5-15); White Blood Count 8.9 10^3/ul (3.5-10.8)
[2017-08-06 07:24] LABS: Mean Corpuscular Volume 115 fL (80-94)
[2017-08-06 07:25] LABS: Platelet Count 45 10^3/ul (150-450)
[2017-08-06 07:43] LABS: EGFR Non-African American 18.8 (>60)
[2017-08-06] MEDS: cefTRIAXone(*) 2 GM in NS 0.9% 100 ML* 100 ML IVPB SCH (08:22)
[2017-08-06] MEDS: Dexamethasone TAB* 0.5 MG PO SCH (09:10)
[2017-08-06] MEDS: Gabapentin CAP(*) 100 MG PO SCH ×2 (09:11→20:25)
[2017-08-06] MEDS: Insulin LISPRO* 1 UNITS UNIT SUBCUT SCH ×3 (09:12→17:07)
[2017-08-06] MEDS ORDERED: CMC Midodrine (NF) 5 MG TAB PO ONE (10:00)
[2017-08-06] MEDS ORDERED: Lactulose 300 ML for PR* 10 GM/15 ML BTL PR SCH (10:00)
[2017-08-06] MEDS: Octreotide Acetate* 100 MCG/ML 1 ML VIAL SUBCUT SCH ×3 (10:07→20:39)
[2017-08-06] MEDS: Ondansetron INJ* 2 MG/ML VIAL IV PRN ×2 (10:20→14:22)
--- NOTE | 2017-08-06 13:27 | PN ---
Subjective Date of Service: 08/06/17 Interval History: Mental status has been waxing and waning. He is intermittently alert. He was alert enough to eat breakfast this am with assistance but then had trouble recognizing his sister later. Vomiting stopped yesterday evening and diarrhea has started with increased lactulose. Objective Active Medications: Dexamethasone (Decadron Tab*) 0.5 mg PO DAILY [facility] Last Admin: 08/06/17 09:10 Dose: 0.5 mg Dextrose (D50w Syringe 50 Ml*) 12.5 gm IV PUSH .FOR FS < 60 - SS PRN PRN Reason: FS < 60 Enoxaparin Sodium (Lovenox(*)) 30 mg SUBCUT 2000 [facility] Last Admin: 08/05/17 21:28 Dose: 30 mg Gabapentin (Neurontin Cap(*)) 200 mg PO BID [facility] Last Admin: 08/06/17 09:11 Dose: 200 mg Ceftriaxone Sodium 2 gm/ (Sodium Chloride) 100 mls @ 200 mls/hr IVPB Q24H [facility] Last Admin: 08/06/17 08:22 Dose: 200 mls/hr Sodium Chloride (Ns 0.9% 1000 Ml*) 1,000 mls @ 75 mls/hr IV PER RATE [facility] Last Admin: 08/06/17 05:48 Dose: 75 mls/hr Insulin Glargine (Lantus(*)) 35 units SUBCUT 2100 [facility] Last Admin: 08/05/17 21:29 Dose: 35 units Insulin Human Lispro (Humalog*) 0 units SUBCUT AC [facility] PRN Reason: Protocol Last Admin: 08/06/17 12:10 Dose: Not Given Lactulose (Lactulose*) 30 ml PO Q4H [facility] Last Admin: 08/06/17 10:07 Dose: 30 ml Midodrine (Midodrine (Nf)) 10 mg PO TID [facility] PRN Reason: Protocol Last Admin: 08/06/17 09:15 Dose: 10 mg Morphine Sulfate (Morphine Inj (Syringe)*) 4 mg IV Q4H PRN PRN Reason: PAIN Octreotide Acetate (Octreotide Acetate*) 100 mcg SUBCUT TID [facility] Last Admin: 08/06/17 10:07 Dose: 100 mcg Ondansetron HCl (Zofran Inj*) 4 mg IV Q4H PRN PRN Reason: NAUSEA/VOMITING Last Admin: 08/06/17 10:20 Dose: 4 mg Oxycodone HCl (Roxycodone Tab*) 10 mg PO Q4H PRN PRN Reason: PAIN Last Admin: 08/05/17 10:21 Dose: 10 mg Vital Signs: Temp Pulse Resp BP Pulse Ox 98.9 F 71 12 111/54 99 08/06/17 11:19 08/06/17 11:19 08/06/17 12:10 08/06/17 11:19 08/06/17 11:19 Oxygen Devices in Use Now: Nasal Cannula Appearance: Lethargic, awakes with some physical stimulation. Able to say yes/ no Respiratory: Symmetrical Chest Expansion and Respiratory Effort, Clear to Auscultation Cardiovascular: NL Sounds; No Murmurs; No JVD, RRR Abdominal: NL Sounds; No Tenderness; No Distention Extremities: - - diffuse edema Skin: No Rash or Ulcers Neurological: - - diffuse weakness Result Diagrams: 08/06/17 06:45 08/06/17 06:45 Additional Lab and Data: Laboratory Tests 08/05/17 09:00 Fluid Source Peritonial fluid Fluid WBC 84 Fluid RBC 364 Fluid Tot Cell Count 100 Fluid Neutrophils 31 Fluid Lymphocytes 29 Fluid Monocytes 40 Microbiology and Other Data: Microbiology 08/04/17 07:30 Nasal Screen MRSA (PCR)(LATONIA) - Final Nasal Mrsa Negative Diagnostic Imaging: US abd - mild/mod ascites Doppler US - no extension of prior DVT (R peroneal vein) Assess/Plan/Problems-Billing Assessment: This is a 62 yo male with liver cirrhosis, recent diagnosis of DM and h/o TIA who presented with c/o malaise with acute renal failure, liver failure and multiple electrolyte derangements. - Patient Problems (1) Acute kidney failure Comment: Likely hepatorenal syndrome Little to no improvement with volume expansion and midodrine Remains oliguric with output 10-15 ml/hr Cont maintenance rate of NS and add octreotide Urine studies suggest pre-renal etiology with FeNa of 0.2% (2) Acute hepatic encephalopathy Comment: Acute rise in ammonia since admission Little response to lactulose today Will add Rifaximin Mental status waxing and waning throughout day, occasionally alert but generally confused, still taking orals somewhat reliably (3) Liver failure Comment: Acute on chronic Peritoneal fluid is not suggestive of SBP Appreciate consultation from Dr Ferguson Known liver cirrhosis, 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 established with site administrator or photoresist printer per patient PCP records reviewed which were limited (4) Electrolyte abnormality Comment: Hyperkalemia and hyponatremia Improving Likely due to renal and hepatic dysfunction (5) Adrenal insufficiency Comment: Empirically started on low dose dexamethasone during last admission Cosyntropin stim test was pending Plan to continue dexamethasone at this time (6) DVT (deep venous thrombosis) Comment: Recent diagnosis of distal DVT No propagation noted on repeat Doppler from yesterday Recommendation from hematology was treatment of Lovenox 40mg sq daily for 30 days. Holding Lovenox at this time as platelet count has drifted below 50K today (7) Diabetes Comment: New diagnosis as of last hospitalization with HgbA1c of 10.8 Cont basal/bolus insulin coverage (8) DVT prophylaxis Comment: SCDs Holding heparin products due to plts <50K (9) DNR (do not resuscitate) Comment: Thorough discussion of prognosis with patient's sister today, who is his HCP MOLST completed to reflect DNR/DNI status Status and Disposition: Inpatient. Continues to decline, family considering transition to comfort care measures if there is no significant improvement tomorrow.
--- NOTE | 2017-08-06 14:00 | CONS ---
CC: Dr. Wallace NEPHROLOGY CONSULTATION: DATE OF CONSULT: HISTORY OF PRESENT ILLNESS: Mr. Munson is a 62-year-old gentleman with a history of cryptogenic cirrho sis, who was admitted to the hospital because of worsening renal function. He is basically encephalo pathic at this time and is unable to give history. As a result, the history is taken from the record . He has a history of diabetes mellitus type 2, a history of TIA's and seizures and a history of cry ptogenic cirrhosis. During his evaluation, he was found to have a markedly diminished fractional exc retion of sodium suggesting a significant prerenal state for a cause of his renal insufficiency. How ever, he is significantly fluid overloaded, which then raises the question also of hepatorenal syndro me. PAST MEDICAL HISTORY: His previous medical history includes an appendectomy. He also has a history of adrenal insufficiency and has been started on Decadron. He has a history of a recent deep venous thrombosis. MEDICATIONS: His medications have included: 1. Lovenox. 2. Decadron. 3. Oxycodone. 4. Lispro. 5. Lantus insulin. 6. Gabapentin. 7. Now lactulose. ALLERGIES: He has no medical allergies. FAMILY HISTORY: His family history is significant for tuberculosis as well as coronary artery diseas e. PHYSICAL EXAM: He is an encephalopathic white male who arouses to stimulation, but does not answer q uestions intelligibly. He has a marked tremor and noticeable asterixis. There is some scleral icter us noted. His extraocular muscles are intact. His mucous membranes are moist. His chest was clear. The heart revealed a regular rhythm without murmurs. The abdomen is distended. Bowel sounds are p ositive. He has 3+ edema diffusely. His nail beds reveal Medardo's nails. His blood pressure is 108/ 54 with a pulse of 83, respirations are 20. He has had a very poor urine output. This has been even in the face of receiving significant intravenous fluid challenges. DIAGNOSTIC STUDIES/LAB DATA: His laboratory values reveal sodium of 126, potassium of 5.3, chloride 97, total CO2 of 24, BUN 77 with a creatinine of 3.02. His urinary sodium was less than 18. DISCUSSION: The combination of a very diminished fractional excretion of sodium together with a low urinary sodium in the face of oliguria and renal failure would ordinarily suggest the presence of hep atorenal syndrome. The usual differential diagnosis only includes a prerenal state. In this setting , the opening up of peripheral arterial venous malformations can produce a significant prerenal state mimicking a marked intravascular volume depletion. I had originally suggested that he be started on midodrine and that dose should be increased. At some point, if there is not an adequate response, o ctreotide subcutaneously can be added. The fact that his level of is not that much worse than he has been with an INR of 1.36 and that his albumin has actually increased slightly during this hos pitalization from 1.7 to 2.2 is suggestive that he does have some significant hepatic reserve. As a result, I think that continued hydration would be in order. His hyperkalemia is likely secondary to h is renal insufficiency, but he may also be lysing up blood from this recent deep venous thrombosis. Obviously, he should avoid nephrotoxic agents and x-ray contrast agents. I would think the prognosis is guarded. I have discussed the case with JUSTIN Gilbert. [id number]/[facility] #: [id number]
[2017-08-06] MEDS: Insulin GLARGINE(*) 1 UNITS UNIT SUBCUT SCH (20:21)
[2017-08-06] MEDS: oxyCODONE TAB* 5 MG TAB PO PRN (20:30)
[2017-08-06] MEDS: RiFAXimin* 550 MG TAB PO SCH (20:32)
[2017-08-07] MEDS: oxyCODONE TAB* 5 MG TAB PO PRN ×2 (02:46→19:32)
[2017-08-07 06:08] LABS: ABS Basophils 0.1 10^3/ul (0-0.2); ABS Eosinophils 0.3 10^3/ul (0-0.6); ABS Lymphocytes 0.7 10^3/ul (1.0-4.8); ABS Monocytes 0.5 10^3/ul (0-0.8); ABS Nucleated RBC 0 10^3/ul; Eosinophil % 3.9 % (0-6); Hematocrit 24 % (42-52); Hemoglobin 8.6 g/dl (14.0-18.0); Lymphocyte % 8.4 % (25-47); Mean Corpuscular HGB Conc 35 g/dl (31-36); Mean Corpuscular Hemoglobin 41 pg (27-31); Mean Platelet Volume 6 um3 (7.4-10.4); Nucleated Red Blood Cells % 0; Platelet Count 98 10^3/ul (150-450); Red Blood Count 2.11 10^6/ul (4.0-5.4); Red Cell Distribution Width 15 % (10.5-15); White Blood Count 8.7 10^3/ul (3.5-10.8)
[2017-08-07 06:12] LABS: Mean Corpuscular Volume 115 fL (80-94)
[2017-08-07 06:18] LABS: INR 1.4 (0.77-1.02)
[2017-08-07] MEDS: Insulin LISPRO* 1 UNITS UNIT SUBCUT SCH ×3 (08:09→18:21)
[2017-08-07] MEDS: CMC:Midodrine (NF) 5 MG TAB PO SCH ×3 (08:30→19:33)
[2017-08-07] MEDS: Gabapentin CAP(*) 100 MG PO SCH ×2 (08:30→19:30)
[2017-08-07] MEDS: RiFAXimin* 550 MG TAB PO SCH ×2 (08:31→19:38)
[2017-08-07] MEDS: NS 0.9% 1000 ML* 1,000 ML IV SCH ×2 (08:31→19:26)
[2017-08-07] MEDS: cefTRIAXone(*) 2 GM in NS 0.9% 100 ML* 100 ML IVPB SCH (08:31)
[2017-08-07] MEDS: Octreotide Acetate* 100 MCG/ML 1 ML VIAL SUBCUT SCH ×3 (08:31→19:41)
[2017-08-07] MEDS: Dexamethasone TAB* 0.5 MG PO SCH (09:43)
--- NOTE | 2017-08-07 09:59 | PN ---
Subjective Date of Service: 08/07/17 Interval History: No significant changes overnight. Urine output from overnight was just above 10ml/h, but this morning appears to be up to as high as 30 ml/h. He continues to be arousable, and occasionally conversant. He was able to eat oatmeal this am with assistance and reliably taking oral medications. Objective Active Medications: Dexamethasone (Decadron Tab*) 0.5 mg PO DAILY [facility] Last Admin: 08/07/17 09:43 Dose: 0.5 mg Dextrose (D50w Syringe 50 Ml*) 12.5 gm IV PUSH .FOR FS < 60 - SS PRN PRN Reason: FS < 60 Gabapentin (Neurontin Cap(*)) 200 mg PO BID [facility] Last Admin: 08/07/17 08:30 Dose: 200 mg Ceftriaxone Sodium 2 gm/ (Sodium Chloride) 100 mls @ 200 mls/hr IVPB Q24H [facility] Last Admin: 08/07/17 08:31 Dose: 200 mls/hr Sodium Chloride (Ns 0.9% 1000 Ml*) 1,000 mls @ 125 mls/hr IV PER RATE [facility] Last Admin: 08/07/17 08:31 Dose: 125 mls/hr Insulin Glargine (Lantus(*)) 35 units SUBCUT 2100 [facility] Last Admin: 08/06/17 20:21 Dose: 35 units Insulin Human Lispro (Humalog*) 0 units SUBCUT AC [facility] PRN Reason: Protocol Last Admin: 08/07/17 08:09 Dose: Not Given Lactulose (Lactulose*) 30 ml PO Q4H [facility] Last Admin: 08/07/17 09:43 Dose: 30 ml Midodrine (Midodrine (Nf)) 10 mg PO TID [facility] PRN Reason: Protocol Last Admin: 08/07/17 08:30 Dose: 10 mg Morphine Sulfate (Morphine Inj (Syringe)*) 4 mg IV Q4H PRN PRN Reason: PAIN Octreotide Acetate (Octreotide Acetate*) 200 mcg SUBCUT TID [facility] Last Admin: 08/07/17 08:31 Dose: 200 mcg Ondansetron HCl (Zofran Inj*) 4 mg IV Q4H PRN PRN Reason: NAUSEA/VOMITING Last Admin: 08/06/17 14:22 Dose: 4 mg Oxycodone HCl (Roxycodone Tab*) 10 mg PO Q4H PRN PRN Reason: PAIN Last Admin: 08/07/17 02:46 Dose: 10 mg Rifaximin (Xifaxan*) 550 mg PO BID [facility] Last Admin: 08/07/17 08:31 Dose: 550 mg Vital Signs: Temp Pulse Resp BP Pulse Ox 97.5 F 75 16 115/55 96 08/07/17 07:51 08/07/17 07:51 08/07/17 08:30 08/07/17 07:51 08/07/17 08:48 Oxygen Devices in Use Now: Nasal Cannula Appearance: Lethargic 62 yo gentleman. Answers some yes/no questions Respiratory: Symmetrical Chest Expansion and Respiratory Effort, Clear to Auscultation Cardiovascular: NL Sounds; No Murmurs; No JVD, RRR Abdominal: NL Sounds; No Tenderness; No Distention Extremities: - - trace to 1+ non-pitting edema Neurological: - - sedated but arousable Result Diagrams: 08/07/17 06:00 08/07/17 06:01 Additional Lab and Data: Laboratory Tests 08/05/17 09:00 Fluid Source Peritonial fluid Fluid WBC 84 Fluid RBC 364 Fluid Tot Cell Count 100 Fluid Neutrophils 31 Fluid Lymphocytes 29 Fluid Monocytes 40 Microbiology and Other Data: Microbiology 08/04/17 07:30 Nasal Screen MRSA (PCR)(LATONIA) - Final Nasal Mrsa Negative Diagnostic Imaging: US abd - mild/mod ascites Doppler US - no extension of prior DVT (R peroneal vein) Assess/Plan/Problems-Billing Assessment: This is a 62 yo male with liver cirrhosis, recent diagnosis of DM and h/o TIA who presented with c/o malaise with acute renal failure, liver failure and multiple electrolyte derangements. - Patient Problems (1) Acute kidney failure Comment: Likely hepatorenal syndrome Cr continues to climb, but urine output appears slightly improved Cont maintenance rate of NS Increase dose of octreotide, cont midodrine Urine studies suggest pre-renal etiology with FeNa of 0.2% (2) Acute hepatic encephalopathy Comment: Acute rise in ammonia since admission, slightly improved on recheck today but still grossly encephalopathic Cont lactulose, Rifaximin started last night which will be continued (3) Liver failure Comment: Acute on chronic MELD score of 29 today Peritoneal fluid is not suggestive of SBP Stop ceftriaxone Appreciate consultation from Dr Ferguson Known liver cirrhosis, not established with radiology asst or fashion marketer per patient PCP records reviewed which were limited (4) Electrolyte abnormality Comment: Hyperkalemia and hyponatremia Improving Likely due to renal and hepatic dysfunction (5) Adrenal insufficiency Comment: Empirically started on low dose dexamethasone during last admission Cosyntropin stim test was pending Plan to continue dexamethasone at this time (6) DVT (deep venous thrombosis) Comment: Recent diagnosis of distal DVT No propagation noted on repeat Doppler from yesterday Recommendation from hematology was treatment of Lovenox 40mg sq daily for 30 days. (7) Diabetes Comment: New diagnosis as of last hospitalization with HgbA1c of 10.8 Cont basal/bolus insulin coverage (8) DVT prophylaxis Comment: SCDs Resume Lovenox as platelets have recovered today (9) DNR (do not resuscitate) Comment: MOLST completed to reflect DNR/DNI status, completed by his HCP (sister Suad) Status and Disposition: Inpatient. Cont current treatment plan, transition to comfort measures if no appreciable improvement in the next couple of days
[2017-08-07] MEDS ORDERED: Enoxaparin(*) 30 MG/0.3 ML SYR SUBCUT SCH (11:00)
[2017-08-07] MEDS: Enoxaparin(*) 30 MG/0.3 ML SYR SUBCUT SCH (14:08)
[2017-08-07] MEDS: Insulin GLARGINE(*) 1 UNITS UNIT SUBCUT SCH (19:37)
[2017-08-08] MEDS: NS 0.9% 1000 ML* 1,000 ML IV SCH ×2 (03:29→19:13)
[2017-08-08 06:24] LABS: ABS Basophils 0.1 10^3/ul (0-0.2); ABS Eosinophils 0.4 10^3/ul (0-0.6); ABS Lymphocytes 0.6 10^3/ul (1.0-4.8); ABS Monocytes 0.6 10^3/ul (0-0.8); ABS Neutrophils 7.2 10^3/ul (1.5-7.7); ABS Nucleated RBC 0 10^3/ul; Eosinophil % 4.6 % (0-6); Hematocrit 24 % (42-52); Hemoglobin 8.6 g/dl (14.0-18.0); Lymphocyte % 7.2 % (25-47); Mean Corpuscular HGB Conc 36 g/dl (31-36); Mean Corpuscular Hemoglobin 41 pg (27-31); Mean Platelet Volume 7 um3 (7.4-10.4); Nucleated Red Blood Cells % 0; Platelet Count 111 10^3/ul (150-450); Red Blood Count 2.11 10^6/ul (4.0-5.4); Red Cell Distribution Width 15 % (10.5-15)
[2017-08-08 06:30] LABS: Mean Corpuscular Volume 115 fL (80-94)
[2017-08-08 06:31] LABS: INR 1.4 (0.77-1.02)
[2017-08-08 06:42] LABS: EGFR Non-African American 15.9 (>60)
[2017-08-08] MEDS: Insulin LISPRO* 1 UNITS UNIT SUBCUT SCH ×3 (07:27→17:45)
[2017-08-08] MEDS: CMC:Midodrine (NF) 5 MG TAB PO SCH ×3 (08:48→22:25)
[2017-08-08] MEDS: RiFAXimin* 550 MG TAB PO SCH ×2 (08:48→22:25)
[2017-08-08] MEDS: Dexamethasone TAB* 0.5 MG PO SCH (08:48)
[2017-08-08] MEDS: Gabapentin CAP(*) 100 MG PO SCH ×3 (08:49→22:38)
[2017-08-08] MEDS: oxyCODONE TAB* 5 MG TAB PO PRN (08:55)
[2017-08-08] MEDS: Octreotide Acetate* 100 MCG/ML 1 ML VIAL SUBCUT SCH ×3 (08:56→22:41)
[2017-08-08] MEDS: Enoxaparin(*) 30 MG/0.3 ML SYR SUBCUT SCH (15:01)
--- NOTE | 2017-08-08 16:24 | PN ---
Subjective Date of Service: 08/08/17 Interval History: Pt is intermittently awake and interactive before again drifting off to sleep Noted arm and leg edema Objective Active Medications: Dexamethasone (Decadron Tab*) 0.5 mg PO DAILY [facility] Last Admin: 08/08/17 08:48 Dose: 0.5 mg Dextrose (D50w Syringe 50 Ml*) 12.5 gm IV PUSH .FOR FS < 60 - SS PRN PRN Reason: FS < 60 Enoxaparin Sodium (Lovenox(*)) 30 mg SUBCUT 1400 [facility] Last Admin: 08/08/17 15:01 Dose: 30 mg Gabapentin (Neurontin Cap(*)) 200 mg PO BID [facility] Last Admin: 08/08/17 08:49 Dose: 200 mg Sodium Chloride (Ns 0.9% 1000 Ml*) 1,000 mls @ 50 mls/hr IV .PER RATE [facility] Insulin Glargine (Lantus(*)) 35 units SUBCUT 2100 [facility] Last Admin: 08/07/17 19:37 Dose: 35 units Insulin Human Lispro (Humalog*) 0 units SUBCUT AC [facility] PRN Reason: Protocol Last Admin: 08/08/17 12:00 Dose: Not Given Lactulose (Lactulose*) 30 ml PO TID [facility] Last Admin: 08/08/17 15:01 Dose: 30 ml Midodrine (Midodrine (Nf)) 10 mg PO TID [facility] PRN Reason: Protocol Last Admin: 08/08/17 15:02 Dose: 10 mg Morphine Sulfate (Morphine Inj (Syringe)*) 4 mg IV Q4H PRN PRN Reason: PAIN Octreotide Acetate (Octreotide Acetate*) 100 mcg SUBCUT TID [facility] Last Admin: 08/08/17 15:02 Dose: 100 mcg Ondansetron HCl (Zofran Inj*) 4 mg IV Q4H PRN PRN Reason: NAUSEA/VOMITING Last Admin: 08/06/17 14:22 Dose: 4 mg Oxycodone HCl (Roxycodone Tab*) 10 mg PO Q4H PRN PRN Reason: PAIN Last Admin: 08/08/17 08:55 Dose: 10 mg Rifaximin (Xifaxan*) 550 mg PO BID [facility] Last Admin: 08/08/17 08:48 Dose: 550 mg Vital Signs - 8 hr 08/08/17 08/08/1708/08/17 08:49 08:55 10:23 Respiratory 16 16 18 Rate Oxygen Devices in Use Now: Nasal Cannula - at 3L Appearance: 62 yo M in nAD, aAOx2 Eyes: No Scleral Icterus, PERRLA Ears/Nose/Mouth/Throat: NL Teeth, Lips, Gums, Mucous Membranes Moist Neck: NL Appearance and Movements; NL JVP, Trachea Midline Respiratory: Symmetrical Chest Expansion and Respiratory Effort, - - crackles at b/l bases Cardiovascular: NL Sounds; No Murmurs; No JVD, RRR Abdominal: NL Sounds; No Tenderness; No Distention, - - soft ascites noted Lymphatic: No Cervical Adenopathy Extremities: No Clubbing, Cyanosis, - - b/l pitting edema of arms and legs +2 Skin: No Nodules or Sclerosis, - - R arm ecchymosis Neurological: - - generalized weakness Result Diagrams: 08/08/17 06:15 08/08/17 06:14 Additional Lab and Data: Laboratory Tests 08/05/17 09:00 Fluid Source Peritonial fluid Fluid WBC 84 Fluid RBC 364 Fluid Tot Cell Count 100 Fluid Neutrophils 31 Fluid Lymphocytes 29 Fluid Monocytes 40 Microbiology and Other Data: Microbiology 08/04/17 07:30 Nasal Screen MRSA (PCR)(LATONIA) - Final Nasal Mrsa Negative Diagnostic Imaging: US abd - mild/mod ascites Doppler US - no extension of prior DVT (R peroneal vein) Assess/Plan/Problems-Billing Assessment: This is a 62 yo male with liver cirrhosis, recent diagnosis of DM and h/o TIA who presented with c/o malaise with acute renal failure, liver failure and multiple electrolyte derangements. - Patient Problems (1) Acute kidney failure Comment: Likely hepatorenal syndrome Cr continues to climb, but urine output appears slightly improved Cont maintenance rate of NS cont octreotide, cont midodrine Urine studies suggest pre-renal etiology with FeNa of 0.2% appreciate nephrology consult (2) Liver failure Comment: Acute on chronic MELD score of 29 today Peritoneal fluid is not suggestive of SBP ceftriaxone stopped Appreciate consultation from Dr Ferguson Known liver cirrhosis, not established with consulting practice director or reimbursement manager per patient (3) Acute hepatic encephalopathy Comment: Acute rise in ammonia since admission, slightly improved but still grossly encephalopathic Cont lactulose, Rifaximin (4) Electrolyte abnormality Comment: Hyperkalemia and hyponatremia Likely due to renal and hepatic dysfunction (5) Adrenal insufficiency Comment: Empirically started on low dose dexamethasone during last admission Cosyntropin stym test was pending Plan to continue dexamethasone at this time (6) DVT (deep venous thrombosis) Comment: Recent diagnosis of distal DVT No propagation noted on repeat Doppler from 08/03/17 Recommendation from hematology was treatment of Lovenox 40mg sq daily for 30 days, now on renal dose adjusted Lovenox 30 mg (7) Diabetes Comment: New diagnosis as of last hospitalization with HgbA1c of 10.8 Cont basal/bolus insulin coverage (8) DVT prophylaxis Comment: Lovenox (9) DNR (do not resuscitate) Comment: MOLST completed to reflect DNR/DNI status, completed by his HCP (sister Suad) Status and Disposition: Inpatient. Cont current treatment plan, transition to comfort measures if no appreciable improvement in the next few days
[2017-08-08] MEDS: Insulin GLARGINE(*) 1 UNITS UNIT SUBCUT SCH (22:40)
[2017-08-09] MEDS: Morphine INJ* 4 MG/ML 1 ML CARPUJECT IV PRN ×2 (06:05→14:34)
[2017-08-09] MEDS: NS 0.9% 1000 ML* 1,000 ML IV SCH (06:33)
[2017-08-09 06:38] LABS: ABS Basophils 0.2 10^3/ul (0-0.2); ABS Eosinophils 0.3 10^3/ul (0-0.6); ABS Lymphocytes 0.8 10^3/ul (1.0-4.8); ABS Monocytes 0.4 10^3/ul (0-0.8); ABS Nucleated RBC 0.02 10^3/ul; Eosinophil % 3.8 % (0-6); Hematocrit 22 % (42-52); Hemoglobin 7.7 g/dl (14.0-18.0); Lymphocyte % 9.4 % (25-47); Mean Corpuscular HGB Conc 35 g/dl (31-36); Mean Corpuscular Hemoglobin 40 pg (27-31); Mean Platelet Volume 6 um3 (7.4-10.4); Nucleated Red Blood Cells % 0.3; Red Blood Count 1.91 10^6/ul (4.0-5.4); Red Cell Distribution Width 15 % (10.5-15); White Blood Count 8.8 10^3/ul (3.5-10.8)
[2017-08-09 06:39] LABS: Mean Corpuscular Volume 115 fL (80-94); Platelet Count 94 10^3/ul (150-450)
[2017-08-09 06:55] LABS: EGFR Non-African American 13.7 (>60)
[2017-08-09] MEDS: Insulin LISPRO* 1 UNITS UNIT SUBCUT SCH ×2 (07:49→13:50)
[2017-08-09] MEDS: Octreotide Acetate* 100 MCG/ML 1 ML VIAL SUBCUT SCH (08:29)
[2017-08-09] MEDS: CMC:Midodrine (NF) 5 MG TAB PO SCH (08:35)
[2017-08-09] MEDS: Dexamethasone TAB* 0.5 MG PO SCH (08:35)
[2017-08-09] MEDS: Gabapentin CAP(*) 100 MG PO SCH (08:35)
[2017-08-09] MEDS: RiFAXimin* 550 MG TAB PO SCH (08:35)
--- NOTE | 2017-08-09 12:52 | PN ---
Subjective Date of Service: 08/09/17 Interval History: Pt is awake, disoriented. Asking for water, denies pain Objective Active Medications: Dexamethasone (Decadron Tab*) 0.5 mg PO DAILY [facility] Last Admin: 08/09/17 08:35 Dose: 0.5 mg Dextrose (D50w Syringe 50 Ml*) 12.5 gm IV PUSH .FOR FS < 60 - SS PRN PRN Reason: FS < 60 Enoxaparin Sodium (Lovenox(*)) 30 mg SUBCUT 1400 [facility] Last Admin: 08/08/17 15:01 Dose: 30 mg Gabapentin (Neurontin Cap(*)) 200 mg PO BID [facility] Last Admin: 08/09/17 08:35 Dose: 200 mg Sodium Chloride (Ns 0.9% 1000 Ml*) 1,000 mls @ 50 mls/hr IV .PER RATE [facility] Last Admin: 08/09/17 06:33 Dose: 50 mls/hr Insulin Glargine (Lantus(*)) 35 units SUBCUT 2100 [facility] Last Admin: 08/08/17 22:40 Dose: 35 units Insulin Human Lispro (Humalog*) 0 units SUBCUT AC [facility] PRN Reason: Protocol Last Admin: 08/09/17 07:49 Dose: Not Given Lactulose (Lactulose*) 30 ml PO TID [facility] Last Admin: 08/09/17 08:48 Dose: 30 ml Midodrine (Midodrine (Nf)) 10 mg PO TID [facility] PRN Reason: Protocol Last Admin: 08/09/17 08:35 Dose: 10 mg Morphine Sulfate (Morphine Inj (Syringe)*) 4 mg IV Q4H PRN PRN Reason: PAIN Last Admin: 08/09/17 06:05 Dose: 4 mg Octreotide Acetate (Octreotide Acetate*) 100 mcg SUBCUT TID [facility] Last Admin: 08/09/17 08:29 Dose: 100 mcg Ondansetron HCl (Zofran Inj*) 4 mg IV Q4H PRN PRN Reason: NAUSEA/VOMITING Last Admin: 08/06/17 14:22 Dose: 4 mg Oxycodone HCl (Roxycodone Tab*) 10 mg PO Q4H PRN PRN Reason: PAIN Last Admin: 08/08/17 08:55 Dose: 10 mg Rifaximin (Xifaxan*) 550 mg PO BID [facility] Last Admin: 08/09/17 08:35 Dose: 550 mg Vital Signs - 8 hr 08/09/17 08/09/17 08/09/17 06:05 07:49 08:35 Respiratory 12 16 16 Rate 08/09/17 10:56 Respiratory 18 Rate Oxygen Devices in Use Now: Nasal Cannula Appearance: 62 yo M in nAD, disoriented Eyes: PERRLA, - - sclera icteric Ears/Nose/Mouth/Throat: NL Teeth, Lips, Gums, Mucous Membranes Moist Neck: NL Appearance and Movements; NL JVP, Trachea Midline Respiratory: Symmetrical Chest Expansion and Respiratory Effort, - - crackles at b/l bases Cardiovascular: NL Sounds; No Murmurs; No JVD, RRR Abdominal: NL Sounds; No Tenderness; No Distention, - - soft ascites noted Lymphatic: No Cervical Adenopathy Extremities: No Clubbing, Cyanosis, - - anasarca in b/l LE and UE's Skin: No Nodules or Sclerosis, - - ecchymosses b/l arms Neurological: - - gneralized weakness, no focal deficit Result Diagrams: 08/09/17 06:29 08/09/17 06:29 Additional Lab and Data: Laboratory Tests 08/05/17 09:00 Fluid Source Peritonial fluid Fluid WBC 84 Fluid RBC 364 Fluid Tot Cell Count 100 Fluid Neutrophils 31 Fluid Lymphocytes 29 Fluid Monocytes 40 Microbiology and Other Data: Microbiology 08/04/17 07:30 Nasal Screen MRSA (PCR)([facility]ATONIA) - Final Nasal Mrsa Negative Diagnostic Imaging: US abd - mild/mod ascites Doppler US - no extension of prior DVT (R peroneal vein) Assess/Plan/Problems-Billing Assessment: This is a 62 yo male with liver cirrhosis, recent diagnosis of DM and h/o TIA who presented with c/o malaise with acute renal failure, liver failure and multiple electrolyte derangements. - Patient Problems (1) Acute kidney failure Comment: Likely hepatorenal syndrome Cr continues to climb, urine output very low. Cont maintenance rate of NS cont octreotide, cont midodrine. will tx with 100ml 25% albumin infusion Urine studies suggest pre-renal etiology with FeNa of 0.2% appreciate nephrology consult (2) Liver failure Comment: Acute on chronic spoke with pt's sister that pt may be able to be evaluated in [place] for liver transplant, otherwise he may . although according to H&P from previous admission pt declined a transplant suggestion in the past. Pt's sister was not aware of that. Peritoneal fluid is not suggestive of SBP ceftriaxone stopped Appreciate consultation from Dr Ferguson Known liver cirrhosis, diagnosed at [place] in 2009 after liver bx. (3) Acute hepatic encephalopathy Comment: Acute rise in ammonia since admission now improved but still grossly encephalopathic Cont lactulose, Rifaximin (4) Electrolyte abnormality Comment: resolved (5) Adrenal insufficiency Comment: Empirically started on low dose dexamethasone during last admission Cosyntropin stym test was pending Plan to continue dexamethasone at this time (6) DVT (deep venous thrombosis) Comment: Recent diagnosis of distal DVT No propagation noted on repeat Doppler from 08/03/17 Recommendation from hematology was treatment of Lovenox 40mg sq daily for 30 days, now on renal dose adjusted Lovenox 30 mg (7) Diabetes Comment: New diagnosis as of last hospitalization with HgbA1c of 10.8 Cont basal/bolus insulin coverage (8) DVT prophylaxis Comment: Lovenox (9) DNR (do not resuscitate) Comment: MOLST completed to reflect DNR/DNI status, completed by his HCP (sister Suad) Status and Disposition: Inpatient. Cont current treatment plan, await sister's decision re: possible transplant center involvement
[2017-08-09] MEDS ORDERED: Albumin Human 25%* 25 GM/100 ML BTL IV ONE (13:00)
--- NOTE | 2017-08-09 13:14 | PN ---
Progress Note - Progress Note Date of Service: 08/09/17 Note: Soke with sister about calling transplants center and inquiring about possible transfer or advice in management . Pt's sister d/w the rest of her family and requested for pt to be comfort care. she stated that her brother would not wish to live in a NH and he would not wish to be transferred. she requests that all meds be stopped apart for the ones providing comfort and pain control.
[2017-08-10] MEDS: Morphine ORAL CONCENTRATE* 5 MG/0.25 ML ORAL.SYRIN PO PRN ×4 (01:42→18:36)
[2017-08-10] MEDS: Morphine INJ* 4 MG/ML 1 ML CARPUJECT IV PRN ×3 (03:49→14:02)
--- NOTE | 2017-08-10 14:05 | CONSULT ---
Palliative / Hospice Consult Ordering Provider: Carmen Marcum Code Status: DNR Advance Directives Location: In Chart MOLST Part A Completed: Yes MOLST Part E Completed:: Yes - History or Present Illness History or Present Illness: This 62 year old man with a history of cryptogenic cirrhosis who has reportedly refused liver transplant in the past is now admitted with renal failure, liver failure, and associated electrolyte abnormalities. He had a MELD score of 9 in 2009. He was recently in the hospital for thrombophlebitis and DVT and was diagnosed with new onset DM. His nutritional status has been compromised with and albumin of 1.7 to 2.2, and stage II decubiti on his back. He has splenomegaly and some ascites, is third-spacing fluid, and now has evidence of equivalent prerenal azotemia despite fluid overload; his FENa is diminished, he is oliguric with hyperkalemia and hyponatremia. In addition, he is encephalopathic with asterixis. He did undergo paracentesis yielding no evidence of SBP. Lab Values: Abnormal Lab Results 08/05/17 09:00 Fluid Cell Count Rvw By Laboratory Last Values WBC 8.8 10^3/ul (3.5-10.8) 08/09/17 06:29 RBC 1.91 10^6/ul (4.0-5.4) L 08/09/17 06:29 Hgb 7.7 g/dl (14.0-18.0) L 08/09/17 06:29 Hct 22 % (42-52) L 08/09/17 06:29 MCV 115 fL (80-94) H 08/09/17 06:29 MCH 40 pg (27-31) H 08/09/17 06:29 MCHC 35 g/dl (31-36) 08/09/17 06:29 RDW 15 % (10.5-15) 08/09/17 06:29 Plt Count 94 10^3/ul (150-450) L 08/09/17 06:29 MPV 6 um3 (7.4-10.4) L 08/09/17 06:29 Neut % (Auto) 79.9 % (38-83) 08/09/17 06:29 Lymph % (Auto) 9.4 % (25-47) L 08/09/17 06:29 Merrick % (Auto) 4.8 % (1-9) 08/09/17 06:29 Eos % (Auto) 3.8 % (0-6) 08/09/17 06:29 Baso % (Auto) 2.1 % (0-2) H 08/09/17 06:29 Absolute Neuts (auto) 7.0 10^3/ul (1.5-7.7) 08/09/17 06:29 Absolute Lymphs (auto) 0.8 10^3/ul (1.0-4.8) L 08/09/17 06:29 Absolute Monos (auto) 0.4 10^3/ul (0-0.8) 08/09/17 06:29 Absolute Eos (auto) 0.3 10^3/ul (0-0.6) 08/09/17 06:29 Absolute Basos (auto) 0.2 10^3/ul (0-0.2) 08/09/17 06:29 Absolute Nucleated RBC 0.02 10^3/ul 08/09/17 06:29 Nucleated RBC % 0.3 08/09/17 06:29 Normal RBC Morphology Not Reportable 08/04/17 06:45 Hypochromasia 2+ 08/04/17 06:45 Macrocytosis 1+ 08/04/17 06:45 INR (Anticoag Therapy) 1.40 (0.77-1.02) H 08/08/17 06:14 APTT 49.4 seconds (26.0-36.3) H 08/05/17 06:13 Patient Temperature Not Reportable 08/05/17 07:20 ABG pH 7.37 (7.35-7.45) 08/05/17 07:20 ABG pH (Temp Correct) Not Reportable 08/05/17 07:20 ABG pCO2 43 mmHg (35-45) 08/05/17 07:20 ABG pCO2 (Temp Corrct Not Reportable 08/05/17 07:20 ABG pO2 67 mmHg (80-100) L 08/05/17 07:20 ABG pO2 (Temp Correct Not Reportable 08/05/17 07:20 ABG HCO3 24.6 mmol/L (19-31) 08/05/17 07:20 ABG O2 Saturation 97.7 % (95-98) 08/05/17 07:20 ABG Base Excess -0.4 (-2.0-2.0) 08/05/17 07:20 Respiration Rate Not Reportable 08/05/17 07:20 O2 Delivery Device n/c 08/05/17 07:20 Ventilator Type Not Reportable 08/05/17 07:20 Vent Mode Not Reportable 08/05/17 07:20 FiO2 3 08/05/17 07:20 Inspiratory Time Not Reportable 08/05/17 07:20 PEEP Not Reportable 08/05/17 07:20 Pressure Support Not Reportable 08/05/17 07:20 Pressure Control Not Reportable 08/05/17 07:20 EPAP Not Reportable 08/05/17 07:20 IPAP Not Reportable 08/05/17 07:20 BiPAP Not Reportable 08/05/17 07:20 Sodium 134 mmol/L (133-145) 08/09/17 06:29 Potassium 4.7 mmol/L (3.5-5.0) 08/09/17 06:29 Chloride 105 mmol/L (101-111) 08/09/17 06:29 Carbon Dioxide 23 mmol/L (22-32) 08/09/17 06:29 Anion Gap 6 mmol/L (2-11) 08/09/17 06:29 BUN 87 mg/dL (6-24) H 08/09/17 06:29 Creatinine 4.38 mg/dL (0.67-1.17) H 08/09/17 06:29 Est GFR ( Amer) 17.6 (>60) 08/09/17 06:29 Est GFR (Non-Af Amer) 13.7 (>60) 08/09/17 06:29 BUN/Creatinine Ratio 19.9 (8-20) 08/09/17 06:29 Glucose 84 mg/dL (70-100) 08/09/17 06:29 POC Glucose (mg/dL) 94 mg/dL (70-100) 08/09/17 07:42 Osmolality 295 mOsm/kg (275 - 295) 08/03/17 15:15 Lactic Acid 1.7 mmol/L (0.5-2.0) 08/03/17 15:15 Calcium 7.9 mg/dL (8.6-10.3) L 08/09/17 06:29 Magnesium 2.7 mg/dL (1.9-2.7) 08/09/17 06:29 Total Bilirubin 8.60 mg/dL (0.2-1.0) H D 08/09/17 06:29 Direct Bilirubin 3.10 mg/dL (0.03-0.18) H 08/04/17 06:45 Indirect Bilirubin 2.0 mg/dL (0.3-1.0) H 08/04/17 06:45 AST 38 U/L (13-39) 08/09/17 06:29 ALT 19 U/L (7-52) 08/09/17 06:29 Alkaline Phosphatase 140 U/L (34-104) H 08/09/17 06:29 Ammonia 41 mol/L (16-53) 08/09/17 06:29 Troponin I 0.02 ng/mL (<0.04) 08/03/17 15:15 Total Protein 5.9 g/dL (6.4-8.9) L 08/09/17 06:29 Albumin 1.9 g/dL (3.2-5.2) L 08/09/17 06:29 Globulin 4.0 g/dL (2-4) 08/09/17 06:29 Albumin/Globulin Ratio 0.5 (1-3) L 08/09/17 06:29 Aldosterone 33 ng/dL (<=21) H 08/03/17 16:55 TSH 1.62 mcIU/mL (0.34-5.60) 08/03/17 15:15 Urine Color Vy 08/03/17 16:05 Urine Appearance Cloudy 08/03/17 16:05 Urine pH 5.0 (5-9) 08/03/17 16:05 Ur Specific [place] 1.015 (1.010-1.030) 08/03/17 16:05 Urine Protein 1+(30 mg/dl) (Negative) H 08/03/17 16:05 Urine Ketones Negative (Negative) 08/03/17 16:05 Urine Blood 3+ (Negative) H 08/03/17 16:05 Urine Nitrate Negative (Negative) 08/03/17 16:05 Urine Bilirubin Negative (Negative) 08/03/17 16:05 Urine Urobilinogen Positive (Negative) H 08/03/17 16:05 Ur Leukocyte Esterase Negative (Negative) 08/03/17 16:05 Urine WBC (Auto) 1+(6-10/hpf) (Absent) H 08/03/17 16:05 Urine RBC (Auto) 3+(>10/hpf) (Absent) H 08/03/17 16:05 Ur Squamous Epith Cells Present (Absent) H 08/03/17 16:05 Urine Bacteria 1+ (Absent) H 08/03/17 16:05 Hyaline Casts Present (Absent) H 08/03/17 16:05 Urine Osmolality 349 mOsm/kg (150 - 1150) 08/04/17 21:00 Ur Random Creatinine 208.80 mg/dL 08/04/17 21:00 Ur Random Sodium < 18 mmol/L 08/04/17 21:00 Renal Sodium Excretion 0.18 % 08/04/17 21:00 Urine Glucose 1+(50 mg/dl) (Negative) H 08/03/17 16:05 Fluid Source Peritoneal fluid 08/05/17 09:00 Fluid Volume 800 mL 08/05/17 09:00 Fluid Color Yellow 08/05/17 09:00 Fluid Appearance Cloudy 08/05/17 09:00 Fluid WBC 84 /mcL (0-974033) 08/05/17 09:00 Fluid RBC 364 /mcL 08/05/17 09:00 Fluid Tot Cell Count 100 08/05/17 09:00 Fluid Neutrophils 31 % 08/05/17 09:00 Fluid Lymphocytes 29 % 08/05/17 09:00 Fluid Monocytes 40 % 08/05/17 09:00 Fluid Other Cells 3 08/05/17 09:00 Fluid Cell Count Rvw By 08/05/17 09:00 Fluid Total Protein 0.8 g/dL 08/05/17 09:00 Fluid LDH 43 U/L 08/05/17 09:00 Fluid Comment 08/05/17 09:00 Copper 1.10 mcg/mL (0.75-1.45) 08/03/17 16:55 Hepatitis A IgM Ab Nonreactive (Nonreactive) 08/03/17 16:55 Hep Bs Antigen Nonreactive (Nonreactive) 08/03/17 16:55 Hep B Core IgM Ab Nonreactive (Nonreactive) 08/03/17 16:55 Hepatitis C Antibody Nonreactive (Nonreactive) 08/03/17 16:55 - Objective Active Medications: Atropine Sulfate (Atropine 1% (Oral/Sl)*) 2 drop SL Q2H PRN PRN Reason: DISCOMFORT Morphine Sulfate (Morphine Oral Concentrate*) 10 mg PO Q2H PRN PRN Reason: PAIN Last Admin: 08/10/17 12:32 Dose: 10 mg Morphine Sulfate (Morphine Inj (Syringe)*) 4 mg IV Q1H PRN PRN Reason: PAIN Ondansetron HCl (Zofran Inj*) 4 mg IV Q4H PRN PRN Reason: NAUSEA/VOMITING Last Admin: 08/06/17 14:22 Dose: 4 mg Oxycodone HCl (Roxycodone Tab*) 10 mg PO Q4H PRN PRN Reason: PAIN Last Admin: 08/08/17 08:55 Dose: 10 mg Vital Signs: Vital Signs: Temp Pulse Resp BP Pulse Ox 98.2 F 82 12 105/48 92 08/09/17 11:42 08/09/17 11:42 08/10/17 12:32 08/09/17 11:42 08/10/17 01:41 Patient Weight: Weight 231 lb 9.6 oz Intake and Output: Intake & Output 08/08/17 08/09/17 08/10/17 08/11/17 06:59 06:59 06:59 06:59 Intake Total 2316 1792 850 Output Total 375 275 200 Balance 1941 1517 650 Weight 231 lb 231 lb 9.6 oz Intake: IV Fluids 6 1437 ABX - CEFTRIAXONE 116 NS (0.9%) 1940 1437 Oral 260 355 850 Output: Urine 0 Fernando 375 275 200 Other: # Bowel Movements 3 1 1 Estimated Stool Amount Medium Medium Small ADLs: Meal Record Start: 08/03/17 21: 56 Freq: DAILY@0900,1400,1800 Status: Active Protocol: Document 08/04/17 09:00 [id number] (Rec: 08/04/17 10:10 [id number] TELE-C07) Document 08/04/17 14:00 NXP1570 (Rec: 08/04/17 14:07 [id number] TELE-C07) Document 08/04/17 18:00 [id number] (Rec: 08/04/17 23:22 [id number] [facility]-C11) Document 08/05/17 09:00 OSF9023 (Rec: 08/05/17 15:51 [id number] TELE-C01) Document 08/05/17 14:00 JIU5220 (Rec: 08/05/17 15:53 VCJ8110 TELE-C01) Document 08/05/17 18:00 [id number] (Rec: 08/05/17 21:54 [id number] TELE-C01) Document 08/06/17 09:00 APK0383 (Rec: 08/06/17 12:10 RTP6228 TELE-C07) Document 08/06/17 14:00 IIT3683 (Rec: 08/06/17 14:05 [id number] TELE-C07) Document 08/06/17 17:57 SGE9865 (Rec: 08/06/17 17:58 UJD3015 TELE-C05) Document 08/07/17 09:00 IMY6434 (Rec: 08/07/17 09:06 MAF7530 TELE-C11) Document 08/07/17 13:51 JYM2181 (Rec: 08/07/17 13:52 GAE8003 TELE-C10) Document 08/07/17 18:00 BSM9450 (Rec: 08/07/17 21:56 AGU7425 TELE-C01) Document 08/08/17 09:00 XRZ3151 (Rec: 08/08/17 15:50 MJK6111 TELE-C01) Document 08/08/17 14:00 TQI7900 (Rec: 08/08/17 15:52 GRY2539 TELE-C01) Document 08/08/17 18:00 LJF5335 (Rec: 08/08/17 21:23 LLO8367 TELE-C09) Document 08/09/17 11:11 EOP6113 (Rec: 08/09/17 11:11 ASE5427 TELE-C01) Document 08/09/17 13:15 PNK1965 (Rec: 08/09/17 13:16 UZN3793 TELE-C01) Document 08/09/17 18:00 PAS1200 (Rec: 08/09/17 18:57 XCM9289 TELE-C01) Document 08/10/17 09:00 HUX2741 (Rec: 08/10/17 10:29 [id number] TELE-C01) Intake and Output Start: 08/03/17 21: 56 Freq: DAILY@0600,1400,2200 Status: Active Protocol: Document 08/04/17 06:00 ATO7503 (Rec: 08/04/17 06:24 [id number] TELE-C01) Document 08/04/17 07:14 JRJ0784 (Rec: 08/04/17 07:15 THR2033 TELE-C07) Document 08/04/17 14:00 TAK6467 (Rec: 08/04/17 14:07 WJY7232 TELE-C07) Document 08/04/17 22:00 ZCG3222 (Rec: 08/04/17 23:24 UZA0359 HOSP-C11) Document 08/05/17 06:00 VWS0508 (Rec: 08/05/17 06:24 COT8081 TELE-C01) Document 08/05/17 14:00 DDT3424 (Rec: 08/05/17 15:53 FRY2342 TELE-C01) Document 08/05/17 21:58 PAP9566 (Rec: 08/05/17 22:00 ENO4244 TELE-C01) Document 08/05/17 22:01 KWI7824 (Rec: 08/05/17 22:01 TCL2067 TELE-C01) Document 08/06/17 06:00 SSG2986 (Rec: 08/06/17 07:01 GYQ3614 TELE-C01) Document 08/06/17 14:00 QAE1406 (Rec: 08/06/17 14:05 IEA8441 TELE-C07) Document 08/06/17 22:00 HXA3155 (Rec: 08/06/17 22:49 [id number] [id number]) Document 08/07/17 06:00 NLH1253 (Rec: 08/07/17 06:42 AEP0138 TELE-C35) Document 08/07/17 13:51 BHQ4962 (Rec: 08/07/17 13:52 SDB6280 TELE-C10) Document 08/07/17 22:00 SWM9492 (Rec: 08/07/17 22:37 UXV9855 TELE-C10) Document 08/08/17 06:00 SKY3027 (Rec: 08/08/17 06:37 TGS0867 TELE-C34) Document 08/08/17 14:00 QNZ8730 (Rec: 08/08/17 15:52 OYG1906 TELE-C01) Document 08/08/17 22:00 FSA5112 (Rec: 08/08/17 22:50 ZXH8307 TELE-C09) Document 08/09/17 05:29 CFU1824 (Rec: 08/09/17 05:31 ICE6477 TELE-C01) Document 08/09/17 12:15 JBU2404 (Rec: 08/09/17 12:15 WEH6149 TELE-C01) Document 08/09/17 12:53 GPA2833 (Rec: 08/09/17 12:53 CSW7167 TELE-C01) Document 08/09/17 22:00 PHC2734 (Rec: 08/09/17 23:25 ZLO7518 TELE-C01) Document 08/10/17 06:00 WSA0948 (Rec: 08/10/17 06:19 [id number] TELE-C01) General Impression: Somnolent man, difficult to arouse, with jaundice. No evidence of distress. 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 His family , who were not present at the time of my visit but who had spoken with Dr. Villaseñor earlier in the day, have all agreed that he would not want any aggressive intervention at this point. He has been placed on comfort care orders, IV fluids have been discontinued, and all meds are now only for comfort. The patient has a prognosis of only days, perhaps a week at most. There are no hospice residence beds available at present, but I will keep this patient in mind if one opens up. He does not qualify for [facility] status, as he has no residential needs requiring frequent monitoring, medication adjustments, or interventions. He is likely to here in the hospital and seems to be comfortable. - Plan Consult Plan (MU): Palliative - Time On Unit Date of Evaluation: 08/10/17 Hospice Consult Time in: 13:30 Hospice Consult Time Out: 14:15 Hospice Consult Time Total: 45 > 50% of Time Spend In Counseling or Coordinating Care: Yes
--- NOTE | 2017-08-10 16:45 | PN ---
Subjective Date of Service: 08/10/17 Interval History: Pt is seen with sister by the bedside. Murmurs incomprehensibly Objective Active Medications: Atropine Sulfate (Atropine 1% (Oral/Sl)*) 2 drop SL Q2H PRN PRN Reason: DISCOMFORT Morphine Sulfate (Morphine Oral Concentrate*) 10 mg PO Q2H PRN PRN Reason: PAIN Last Admin: 08/10/17 12:32 Dose: 10 mg Morphine Sulfate (Morphine Inj (Syringe)*) 4 mg IV Q1H PRN PRN Reason: PAIN Last Admin: 08/10/17 14:02 Dose: 4 mg Ondansetron HCl (Zofran Inj*) 4 mg IV Q4H PRN PRN Reason: NAUSEA/VOMITING Last Admin: 08/06/17 14:22 Dose: 4 mg Oxycodone HCl (Roxycodone Tab*) 10 mg PO Q4H PRN PRN Reason: PAIN Last Admin: 08/08/17 08:55 Dose: 10 mg Vital Signs - 8 hr 08/10/17 08/10/17 08/10/17 08:45 09:10 11:25 Respiratory 20 18 14 Rate 08/10/17 08/10/17 08/10/17 11:26 12:32 14:02 Respiratory 14 12 12 Rate 08/10/17 15:03 Respiratory 14 Rate Oxygen Devices in Use Now: None Appearance: 62 yo M, jaundiced, in NAD, alert, not oriented Eyes: PERRLA, - - b/l sclera icteric Ears/Nose/Mouth/Throat: NL Teeth, Lips, Gums, Mucous Membranes Moist Neck: NL Appearance and Movements; NL JVP, Trachea Midline Respiratory: Symmetrical Chest Expansion and Respiratory Effort, - - coarse rhonchi b/l upper lungs Cardiovascular: NL Sounds; No Murmurs; No JVD, RRR Abdominal: NL Sounds; No Tenderness; No Distention, No Hepatosplenomegaly, - - mild ascites noted Lymphatic: No Cervical Adenopathy Extremities: No Clubbing, Cyanosis, - - diffuse anasarca improving Skin: No Nodules or Sclerosis, - - multople ecchymoses b/l arms Neurological: - - generalized weakness, murmurs incomprehensibly Result Diagrams: 08/09/17 06:29 08/09/17 06:29 Additional Lab and Data: Laboratory Tests 08/05/17 09:00 Fluid Source Peritonial fluid Fluid WBC 84 Fluid RBC 364 Fluid Tot Cell Count 100 Fluid Neutrophils 31 Fluid Lymphocytes 29 Fluid Monocytes 40 Microbiology and Other Data: Microbiology 08/04/17 07:30 Nasal Screen MRSA (PCR)(LATONIA) - Final Nasal Mrsa Negative Diagnostic Imaging: US abd - mild/mod ascites Doppler US - no extension of prior DVT (R peroneal vein) Assess/Plan/Problems-Billing Assessment: This is a 62 yo male with cryptogenic liver cirrhosis, recent diagnosis of DM and h/o TIA who presented with c/o malaise with acute renal failure, liver failure and multiple electrolyte derangements. - Patient Problems (1) Acute kidney failure Comment: Likely hepatorenal syndrome Sister decided to place pt on comfort care on 08/09/17. appreciate palliative care consult (2) Liver failure Comment: Acute on chronic comfort care (3) Acute hepatic encephalopathy Comment: lactulose, Rifaximin held, comfort care (4) Adrenal insufficiency Comment: dexamethasone held due to comfort care (5) DVT (deep venous thrombosis) Comment: no further tx-comfort care (6) DVT prophylaxis Comment: none, comfort care (7) DNR (do not resuscitate) Comment: MOLST completed to reflect DNR/DNI status, completed by his HCP (sister Suad) Status and Disposition: Inpatient. Comfort care. sister would prefer for pt not to go back to [facility] , but there is no open bed at [facility]ospice residence. I suspect has only a few days to live
[2017-08-11] MEDS: Morphine ORAL CONCENTRATE* 5 MG/0.25 ML ORAL.SYRIN PO PRN ×2 (04:11→11:04)
[2017-08-11] MEDS: Morphine INJ* 4 MG/ML 1 ML CARPUJECT IV PRN ×2 (09:43→12:46)
[2017-08-11] MEDS: oxyCODONE TAB* 5 MG TAB PO PRN (11:03)
[2017-08-11 16:12] VITALS: BP 97/41
--- NOTE | 2017-08-11 19:14 | PN ---
Subjective Date of Service: 08/11/17 Interval History: Patient was seen and evaluated. Patient is currently on comfort care. Pt alert to verbal, unable to completed review of systems R/T decreased mentation and chronic liver disease. Appears comfortable no complaints. Objective Active Medications: Atropine Sulfate (Atropine 1% (Oral/Sl)*) 2 drop SL Q2H PRN PRN Reason: DISCOMFORT Morphine Sulfate (Morphine Oral Concentrate*) 10 mg PO Q2H PRN PRN Reason: PAIN Last Admin: 08/11/17 11:04 Dose: 10 mg Morphine Sulfate (Morphine Inj (Syringe)*) 4 mg IV Q1H PRN PRN Reason: PAIN Last Admin: 08/11/17 12:46 Dose: 4 mg Ondansetron HCl (Zofran Inj*) 4 mg IV Q4H PRN PRN Reason: NAUSEA/VOMITING Last Admin: 08/06/17 14:22 Dose: 4 mg Oxycodone HCl (Roxycodone Tab*) 10 mg PO Q4H PRN PRN Reason: PAIN Last Admin: 08/11/17 11:03 Dose: 10 mg Vital Signs - 8 hr 08/11/17 08/11/17 08/11/17 12:46 12:51 14:04 Temperature Pulse Rate Respiratory 16 18 18 Rate Blood Pressure (mmHg) O2 Sat by Pulse Oximetry 08/11/17 15:10 Temperature 97.9 F Pulse Rate 90 Respiratory 8 Rate Blood Pressure 97/41 (mmHg) O2 Sat by Pulse 92 Oximetry Oxygen Devices in Use Now: None Appearance: appears comfortable resting in bed, alert to verbal, juandice Eyes: - - sclera are icteric Ears/Nose/Mouth/Throat: Clear Oropharnyx, - - mucous membranes dry Neck: NL Appearance and Movements; NL JVP Respiratory: Symmetrical Chest Expansion and Respiratory Effort, Clear to Auscultation Cardiovascular: NL Sounds; No Murmurs; No JVD Abdominal: NL Sounds; No Tenderness; No Distention Skin: No Rash or Ulcers Neurological: - - responds to verbal, answers are inappropriate to questions Nutrition: Taking PO's - minimal Result Diagrams: 08/09/17 06:29 08/09/17 06:29 Additional Lab and Data: Laboratory Tests 08/05/17 09:00 Fluid Source Peritonial fluid Fluid WBC 84 Fluid RBC 364 Fluid Tot Cell Count 100 Fluid Neutrophils 31 Fluid Lymphocytes 29 Fluid Monocytes 40 Microbiology and Other Data: Microbiology 08/04/17 07:30 Nasal Screen MRSA (PCR)(LATONIA) - Final Nasal Mrsa Negative Diagnostic Imaging: US abd - mild/mod ascites Doppler US - no extension of prior DVT (R peroneal vein) Assess/Plan/Problems-Billing Assessment: This is a 62 yo male with cryptogenic liver cirrhosis, recent diagnosis of DM and h/o TIA who presented with c/o malaise with acute renal failure, liver failure and multiple electrolyte derangements. - Patient Problems (1) Acute hepatic encephalopathy Code(s): K72.00 - ACUTE AND SUBACUTE HEPATIC FAILURE WITHOUT COMA SNOMED Code( s): 16790444 Comment: comfort care (2) Acute kidney failure Comment: Likely hepatorenal syndrome Sister decided to place pt on comfort care on 08/09/17. appreciate palliative care consult, hospice bed unavailable at this time, will remain inpatient on comfort care (3) DNR (do not resuscitate) Comment: MOLST completed to reflect DNR/DNI status, completed by his HCP (sister Suad). Patient is currently on comfort care awaiting hospice bed. (4) Liver failure Comment: Acute on chronic comfort care (5) Anemia Code(s): D64.9 - ANEMIA, UNSPECIFIED SNOMED Code(s): 880335295 Comment: Macrocytic and increasing, probably related to cirrhosis. Patient is on comfort care further evaluation of level of anemia has been stopped. waiting hospice bed. Status and Disposition: Inpatient. Comfort care. sister would prefer for pt not to go back to [facility] , but there is no open bed at Hospice residence. I suspect has only a few days to live Counseling and/or Coordination of Care Minutes: patient care was discussed with sister and staff Points of Discussion: 1. Hospice bed referral was made 2. Continue comfort care in the hospital for now 3. Will continue medications for comfort.
[2017-08-12] MEDS: Morphine ORAL CONCENTRATE* 5 MG/0.25 ML ORAL.SYRIN PO PRN ×3 (07:25→17:52)
--- NOTE | 2017-08-12 10:24 | PN ---
Subjective Date of Service: 08/12/17 Interval History: Comfort care...Increased Lethargy today, opens eyes minimally to tactile stimuli , respirations shallow, unable to complete review of systems d/t increased lethargy. Appears comfortable resting in the bed. Objective Active Medications: Atropine Sulfate (Atropine 1% (Oral/Sl)*) 2 drop SL Q2H PRN PRN Reason: DISCOMFORT Morphine Sulfate (Morphine Oral Concentrate*) 10 mg PO Q2H PRN PRN Reason: PAIN Last Admin: 08/12/17 07:25 Dose: 10 mg Morphine Sulfate (Morphine Inj (Syringe)*) 4 mg IV Q1H PRN PRN Reason: PAIN Last Admin: 08/11/17 12:46 Dose: 4 mg Ondansetron HCl (Zofran Inj*) 4 mg IV Q4H PRN PRN Reason: NAUSEA/VOMITING Last Admin: 08/06/17 14:22 Dose: 4 mg Vital Signs - 8 hr 08/12/17 08/12/17 07:25 07:32 Respiratory 6 6 Rate Oxygen Devices in Use Now: None Eyes: - - sclera are icteric Ears/Nose/Mouth/Throat: - - mucous membranes are dry Neck: NL Appearance and Movements; NL JVP Respiratory: Symmetrical Chest Expansion and Respiratory Effort, - - thoughout bilat Cardiovascular: NL Sounds; No Murmurs; No JVD Abdominal: NL Sounds; No Tenderness; No Distention Neurological: - - lethargic, non verbal Result Diagrams: 08/09/17 06:29 08/09/17 06:29 Additional Lab and Data: Laboratory Tests 08/05/17 09:00 Fluid Source Peritonial fluid Fluid WBC 84 Fluid RBC 364 Fluid Tot Cell Count 100 Fluid Neutrophils 31 Fluid Lymphocytes 29 Fluid Monocytes 40 Microbiology and Other Data: Microbiology 08/04/17 07:30 Nasal Screen MRSA (PCR)(LATONIA) - Final Nasal Mrsa Negative Diagnostic Imaging: US abd - mild/mod ascites Doppler US - no extension of prior DVT (R peroneal vein) Assess/Plan/Problems-Billing Assessment: This is a 62 yo male with cryptogenic liver cirrhosis, recent diagnosis of DM and h/o TIA who presented with c/o malaise with acute renal failure, liver failure and multiple electrolyte derangements. He has had a decline over night, increased lethargy today, respirations are shallow. remains on comfort care. - Patient Problems (1) Acute hepatic encephalopathy Code(s): K72.00 - ACUTE AND SUBACUTE HEPATIC FAILURE WITHOUT COMA SNOMED Code( s): 67642961 Comment: comfort care (2) Acute kidney failure Comment: Likely hepatorenal syndrome Sister decided to place pt on comfort care on 08/09/17. appreciate palliative care consult, hospice bed unavailable at this time, will remain inpatient on comfort care (3) DNR (do not resuscitate) Comment: MOLST completed to reflect DNR/DNI status, completed by his HCP (sister Suad). Patient is currently on comfort care awaiting hospice bed. (4) Liver failure Comment: Acute on chronic comfort care (5) Anemia Code(s): D64.9 - ANEMIA, UNSPECIFIED SNOMED Code(s): 728278548 Comment: Macrocytic and increasing, probably related to cirrhosis. Patient is on comfort care further evaluation of level of anemia has been stopped. waiting hospice bed. Status and Disposition: Inpatient. Comfort care. sister would prefer for pt not to go back to [facility] , no open bed at Hospice residence at this time. I suspect has only a few days to live
[2017-08-12] MEDS: Morphine INJ* 4 MG/ML 1 ML CARPUJECT IV PRN ×3 (12:18→23:12)
[2017-08-12] MEDS: Atropine 1% (ORAL/SL)* 15 ML BTL SL PRN (15:20)
[2017-08-13] MEDS: Morphine ORAL CONCENTRATE* 5 MG/0.25 ML ORAL.SYRIN PO PRN ×5 (05:02→23:41)
[2017-08-13] MEDS: Morphine INJ* 4 MG/ML 1 ML CARPUJECT IV PRN ×2 (10:11→13:29)
[2017-08-13] MEDS: Atropine 1% (ORAL/SL)* 15 ML BTL SL PRN ×6 (10:12→23:42)
--- NOTE | 2017-08-13 11:27 | PN ---
Subjective Date of Service: 08/13/17 Interval History: Comfort Care... Continues to decline, more lethargic today, not responding to tactile stimuli. Family History: Unchanged from Admission Social History: Unchanged from Admission Past Medical History: Unchanged from Admission Objective Active Medications: Atropine Sulfate (Atropine 1% (Oral/Sl)*) 2 drop SL Q2H PRN PRN Reason: DISCOMFORT Last Admin: 08/13/17 10:12 Dose: 2 drop Morphine Sulfate (Morphine Oral Concentrate*) 10 mg PO Q2H PRN PRN Reason: PAIN Last Admin: 08/13/17 05:02 Dose: 10 mg Morphine Sulfate (Morphine Inj (Syringe)*) 4 mg IV Q1H PRN PRN Reason: PAIN Last Admin: 08/13/17 10:11 Dose: 4 mg Ondansetron HCl (Zofran Inj*) 4 mg IV Q4H PRN PRN Reason: NAUSEA/VOMITING Last Admin: 08/06/17 14:22 Dose: 4 mg Vital Signs - 8 hr 08/13/17 08/13/17 08/13/17 04:56 05:02 08:00 Respiratory 6 9 7 Rate 08/13/17 08/13/17 08:03 10:11 Respiratory 7 8 Rate Oxygen Devices in Use Now: None Appearance: Lethargic, minimal repsonse to verbal, jaundice Eyes: - - icteric Ears/Nose/Mouth/Throat: - - mucous membranes dry Neck: NL Appearance and Movements; NL JVP Respiratory: Symmetrical Chest Expansion and Respiratory Effort, - - shallow Cardiovascular: NL Sounds; No Murmurs; No JVD - gneralized edema Abdominal: - - Hypoactive BS, NO grimacing with palpation Extremities: - - generalized edema Skin: No Rash or Ulcers Neurological: - - lethargic Result Diagrams: 08/09/17 06:29 08/09/17 06:29 Additional Lab and Data: Laboratory Tests 08/05/17 09:00 Fluid Source Peritonial fluid Fluid WBC 84 Fluid RBC 364 Fluid Tot Cell Count 100 Fluid Neutrophils 31 Fluid Lymphocytes 29 Fluid Monocytes 40 Microbiology and Other Data: Microbiology 08/04/17 07:30 Nasal Screen MRSA (PCR)(LATONIA) - Final Nasal Mrsa Negative Diagnostic Imaging: US abd - mild/mod ascites Doppler US - no extension of prior DVT (R peroneal vein) Assess/Plan/Problems-Billing Assessment: This is a 62 yo male with cryptogenic liver cirrhosis, recent diagnosis of DM and h/o TIA who presented with c/o malaise with acute renal failure, liver failure and multiple electrolyte derangements. He has had a decline over night, increased lethargy today, respirations are shallow. remains on comfort care. - Patient Problems (1) Acute hepatic encephalopathy Code(s): K72.00 - ACUTE AND SUBACUTE HEPATIC FAILURE WITHOUT COMA SNOMED Code( s): [id number] Comment: comfort care (2) Acute kidney failure Comment: Likely hepatorenal syndrome Comfort Care (3) DNR (do not resuscitate) Comment: MOLST completed to reflect DNR/DNI status, completed by his HCP (sister Suad). Patient is currently on comfort care awaiting hospice bed. (4) Liver failure Comment: Acute on chronic comfort care (5) Anemia Code(s): D64.9 - ANEMIA, UNSPECIFIED SNOMED Code(s): 571105783 Comment: Comfort care Status and Disposition: Inpatient. Comfort care. sister would prefer for pt not to go back to [facility] , no open bed at Hospice residence at this time. I suspect has only a few days to live
[2017-08-14] MEDS: Morphine ORAL CONCENTRATE* 5 MG/0.25 ML ORAL.SYRIN PO PRN ×3 (01:45→05:51)
[2017-08-14] MEDS: Atropine 1% (ORAL/SL)* 15 ML BTL SL PRN ×3 (01:47→05:50)
--- NOTE | 2017-08-15 00:17 | DS ---
CC: Dr. Wallace * DISCHARGE/ SUMMARY: DATE OF ADMISSION: 08/03/17 DATE OF DISCHARGE/: 08/14/17 at 06:14 a.m. PROVIDER: Jeannie Carpenter NP PRIMARY CARE PROVIDER: Dr. Wallace at [facility]. ATTENDING PHYSICIAN WHILE IN THE HOSPITAL: Dr. Paola Moreno * (report dictated by Jeannie Carpenter NP). CAUSE OF : Cardiopulmonary arrest. SECONDARY DIAGNOSES: 1. Cryptogenic cirrhosis. 2. Hepatorenal failure. 3. Diabetes. HOSPITALIZATION COURSE: Mr. Munson was a 62-year-old male who was admitted to the hospital with increased weakness and a fall. Originally, when he was admitted, he was hyperkalemic and had worsening acute renal failure. He was also hyponatremic and was sent to the hospital for further evaluation. The patient complained of increased weakness and fatigue. He was placed on comfort care during his hospitalization due to irreversible hepatorenal disease. He was placed on comfort care and started on pain management. He was given oral morphine as needed for pain and comfort. He was awaiting hospice bed availability, but there were no beds available. He was pronounced on 08/14 at 06:14 a.m. This case was not referred to the civil division deputy sheriff and autopsy was not ordered. Please note, this is a short summary of the patient's hospital stay. Please refer to further medical records for details. JEANNIE CARPENTER NP [id number]/[facility] #: [id number] [facility] HOSPITALJihan
== END 2017-08-14 11:38 | disposition expired | DRG 279 ==
LOC: ED 14:09 → MEDTELE 20:13
PROVIDERS: ADMIT Internal Medicine; ATTEND Internal Medicine
PROC: 0W9G3ZZ Drainage of Peritoneal Cavity, Percutaneous Approach (ICD-10-PCS; principal; 2017-08-04 15:30)
DX: K72.90 Hepatic failure, unspecified without coma (principal); E43 Unspecified severe protein-calorie malnutrition; N17.9 Acute kidney failure, unspecified; L89.152 Pressure ulcer of sacral region, stage 2; E87.1 Hypo-osmolality and hyponatremia; E27.40 Unspecified adrenocortical insufficiency; L03.90 Cellulitis, unspecified; Z86.718 Personal history of other venous thrombosis and embolism; Z86.73 Personal history of transient ischemic attack (TIA), and cerebral infarction without residual deficits; Z82.49 Family history of ischemic heart disease and other diseases of the circulatory system; E87.5 Hyperkalemia; Z66 Do not resuscitate; I46.9 Cardiac arrest, cause unspecified; K74.69 Other cirrhosis of liver; I80.9 Phlebitis and thrombophlebitis of unspecified site; N18.9 Chronic kidney disease, unspecified; R58 Hemorrhage, not elsewhere classified; D53.9 Nutritional anemia, unspecified; E11.8 Type 2 diabetes mellitus with unspecified complications; Z68.33 Body mass index [BMI] 33.0-33.9, adult
CPT/HCPCS: 36415; 36600; 49082; 49083; 70450; 74000; 76700; 76705; 80048; 80053; 80074; 80076; 81003; 81015; 82088; 82140; 82525; 82570; 82803; 83605; 83615; 83735; 83930; 83935; 84157; 84300; 84443; 84484; 85025; 85610; 85730; 87086; 87641; 89051; 93005; 93306; 94760; A9270-GY; J0610; J0696; J1650; J1815; J2270; J2354; J2405; P9047